=== PATIENT | male | born 1950 | race Caucasian/White ===

== ENCOUNTER 2017-03-19 22:35 | Emergency (ER) | payer OTHER ==
[2017-03-19 23:15] LABS: #Basophils 0.1 thou/uL (0.0-0.2); #Eosinphils 0.4 thou/uL (0.0-0.7); #Lymphocytes 3.2 thou/uL (1.20-3.40); #Monocytes 0.6 thou/uL (0.11-0.59); #Neutrophils 4.7 thou/uL (1.40-6.50); %Basophils 1.4 % (0.0-1.0); %Eosinophils 4.8 % (0.0-10.0); %Monocytes 6.4 % (0.0-10.0); Hematocrit 43.8 % (42.0-52.0); Mean Platelet Volume 6.6 fL (7.4-10.4); Red Blood Cell (RBC) Count 4.34 mill/uL (4.70-6.10)
--- NOTE | 2017-03-19 23:17 | RAD ---
LEFT FOREARM TWO VIEWS: History: Fall. Injury. Pain. Comparison: None. FINDINGS: No fracture. No cortical irregularity. No periosteal reaction. IMPRESSION: No fracture. POS: [facility]
--- NOTE | 2017-03-19 23:18 | RAD ---
TWO VIEWS LEFT HUMERUS: History: Fall. Laceration. FINDINGS: No fracture. No cortical irregularity. No periosteal reaction. IMPRESSION: No fracture. POS: [facility]
[2017-03-19 23:28] LABS: PTT 27.1 SEC (22.9-36.1); Prothrombin Time 13.5 SEC (12.0-14.7)
[2017-03-19 23:34] LABS: ALT (SGPT) Less than 7 U/L (8-55); AST (SGOT) 33 U/L (5-34); Alkaline Phosphatase 73 U/L (40-150); Anion Gap 14 mmol/L (10-20); BUN (Urea Nitrogen) 8 mg/dL (8.4-25.7); Bilirubin, Total 0.3 mg/dL (0.2-1.2); Calc. Creatinine Clearance 0 mL/min (70-130); Calcium 8.5 mg/dL (7.8-10.44); Carbon Dioxide 22 mmol/L (23-31); Chloride 109 mmol/L (98-107); Estimated GFR-MDRD 82; Globulin 2.4 g/dL (2.4-3.5)
--- NOTE | 2017-03-20 00:02 | CT ---
NONCONTRAST HEAD CT: History: Patient fell into coffee table. Post-traumatic pain and abrasion. Comparison: None. Technique: Noncontrast head CT is performed from skull base to skull vertex. FINDINGS: No parenchymal hemorrhage. No extraaxial hematoma. No midline shift. Basilar cisterns are patent. Br ain volume, age appropriate. Cortical joshi white matter differentiation preserved. Ventricles and sulci are patent and symmetric. There is paranasal sinus opacification. Correlate for sinus disease. Adequate aeration of mastoid ai r cells. Calvarium is intact. IMPRESSION: No intracranial post-traumatic sequellae. POS: [facility]
--- NOTE | 2017-03-20 00:05 | CT ---
CERVICAL SPINE CT WITHOUT CONTRAST: History: Patient fell and hit coffee table. Post-traumatic pain. Comparison: None. Technique: Cervical spine CT is performed without contrast. Reformatted images are submitted for int erpretation. FINDINGS: There is appropriate alignment of the lateral masses of C1 and C2 as well as the intraarticular face ts. Odontoid process is intact. There is minimal anterolisthesis of C3 upon C4, likely due to degenerative changes of the posterior elements. Vertebral body heights appear to be maintained. No fracture. Moderate degenerative disc di sease at C5-6 with loss of disc space height and osteophyte formation. There are varying degrees of central canal stenosis and foraminal narrowing due to degenerative change. Evaluation is limited by technique. Visualized soft tissue neck structures, upper mediastinum and lung apices are unremarkable. There is no prevertebral soft tissue swelling. No epidural hematoma. IMPRESSION: No fracture. POS: [facility]
== END 2017-03-20 01:27 | disposition home or self-care (01) ==
LOC: ERS 22:35
DX: S51.812A Laceration without foreign body of left forearm, initial encounter (principal); I25.10 Atherosclerotic heart disease of native coronary artery without angina pectoris; J45.909 Unspecified asthma, uncomplicated; J44.9 Chronic obstructive pulmonary disease, unspecified; F31.9 Bipolar disorder, unspecified; I10 Essential (primary) hypertension; W17.89XA Other fall from one level to another, initial encounter
CPT/HCPCS: 36415; 70450; 72125; 80053; 85025; 85610; 85730

== ENCOUNTER 2017-03-24 23:50 | Emergency (ER) | payer OTHER ==
[2017-03-25] MEDS ORDERED: Bacitracin Zinc 1 Packet ONE (01:56)
[2017-03-25] MEDS ORDERED: Adacel (T-DAP) 0.5 ML VIAL ONE (02:22)
[2017-03-25] MEDS ORDERED: Cephalexin 250 MG CAP ONE (02:43)
[2017-03-25] MEDS ORDERED: Sulfameth/Trimethoprim DS 800-160mg TAB ONE (02:43)
== END 2017-03-25 03:44 | disposition home or self-care (01) ==
LOC: ERS 23:50
DX: L03.114 Cellulitis of left upper limb (principal); I25.10 Atherosclerotic heart disease of native coronary artery without angina pectoris; I10 Essential (primary) hypertension; J45.909 Unspecified asthma, uncomplicated; J44.9 Chronic obstructive pulmonary disease, unspecified; F31.9 Bipolar disorder, unspecified; Z87.891 Personal history of nicotine dependence; Z79.899 Other long term (current) drug therapy
CPT/HCPCS: 87070; 87205; 90471; 90715

== ENCOUNTER 2017-03-27 02:18 | Emergency (ER) | payer OTHER ==
[2017-03-27 03:34] LABS: #Basophils 0.1 thou/uL (0.0-0.2); #Eosinphils 0.6 thou/uL (0.0-0.7); #Lymphocytes 1.4 thou/uL (1.20-3.40); #Monocytes 0.7 thou/uL (0.11-0.59); #Neutrophils 3.2 thou/uL (1.40-6.50); %Basophils 1.1 % (0.0-1.0); %Eosinophils 9.3 % (0.0-10.0); %Lymphocytes 24.2 % (21.0-51.0); %Monocytes 12.3 % (0.0-10.0); Hematocrit 45.7 % (42.0-52.0); Mean Platelet Volume 7.7 fL (7.4-10.4); Red Blood Cell (RBC) Count 4.45 mill/uL (4.70-6.10); White Blood Cell (WBC) Count 5.9 thou/uL (4.8-10.8)
[2017-03-27] MEDS ORDERED: Lorazepam 2 MG/ML VIAL ONE (04:11)
[2017-03-27] MEDS ORDERED: Multivitamins, Adult 10 ML, Thiamine HCl 100 MG, Folic Acid 1 MG in Dextrose 5 %-0.45 %... IV SCH ×4 (04:30)
[2017-03-27 05:42] LABS: Acetaminophen Less than 6.0 mcg/mL (10.0-30.0); CK (CPK) 86 U/L (30-200); Salicylate Less than 8.0 mg/dL (15.0-30.0)
[2017-03-27 05:46] LABS: Chloride 107 mmol/L (98-107)
[2017-03-27 05:47] LABS: Calcium 8.7 mg/dL (7.8-10.44)
[2017-03-27 05:48] LABS: Globulin 2.5 g/dL (2.4-3.5); Protein, Total 6.2 g/dL (5.8-8.1)
[2017-03-27 05:49] LABS: Anion Gap 13 mmol/L (10-20); Bilirubin, Total 0.3 mg/dL (0.2-1.2); Carbon Dioxide 23 mmol/L (23-31)
[2017-03-27 05:50] LABS: Alkaline Phosphatase 106 U/L (40-150)
[2017-03-27 05:51] LABS: Calc. Creatinine Clearance 0 mL/min (70-130); Estimated GFR-MDRD 76
[2017-03-27 05:52] LABS: BUN (Urea Nitrogen) 6 mg/dL (8.4-25.7)
[2017-03-27 05:53] LABS: ALT (SGPT) 25 U/L (8-55); AST (SGOT) 30 U/L (5-34)
[2017-03-27 08:08] LABS: Bilirubin Negative (Negative); Blood, Urine Negative (Negative); Glucose, Urine (Dipstick) Negative (Negative); Ketone, Urine Negative (Negative); Nitrite Negative (Negative); Protein, Urine (Dipstick) Negative (Neg-Trace); Urobilinogen 0.2 mg/dL (0.2-1.0)
[2017-03-27 08:22] LABS: Amphetamine Not Detected (NotDetected); Methadone Not Detected (NotDetected); Methamphetamine Not Detected (NotDetected)
[2017-03-27] MEDS ORDERED: Lorazepam 1 MG TAB ONE (09:43)
== END 2017-03-27 14:36 | disposition home or self-care (01) ==
LOC: ERS 02:18
DX: F32.9 Major depressive disorder, single episode, unspecified (principal); F10.20 Alcohol dependence, uncomplicated; I10 Essential (primary) hypertension; J44.9 Chronic obstructive pulmonary disease, unspecified; I25.10 Atherosclerotic heart disease of native coronary artery without angina pectoris; Z87.891 Personal history of nicotine dependence
CPT/HCPCS: 36415; 80053; 80178; 80306; 80307; 81003; 82550; 84443; 85025; 93005; 96361; 96365; 96366; 96375; J2060; J3411; J7042

== ENCOUNTER 2017-03-31 01:35 | Inpatient (IN) | payer OTHER ==
[2017-03-31] MEDS ORDERED: Multivitamins, Adult 10 ML, Thiamine HCl 100 MG, Folic Acid 1 MG in Dextrose 5 %-0.45 %... IV SCH ×4 (03:00)
[2017-03-31 04:38] LABS: #Basophils 0.1 thou/uL (0.0-0.2); #Eosinphils 0.3 thou/uL (0.0-0.7); #Lymphocytes 1.6 thou/uL (1.20-3.40); #Monocytes 0.5 thou/uL (0.11-0.59); #Neutrophils 2.4 thou/uL (1.40-6.50); %Basophils 1.8 % (0.0-1.0); %Lymphocytes 33.3 % (21.0-51.0); %Monocytes 9.7 % (0.0-10.0); Hematocrit 40.6 % (42.0-52.0); Mean Platelet Volume 6.5 fL (7.4-10.4); White Blood Cell (WBC) Count 4.8 thou/uL (4.8-10.8)
[2017-03-31 04:44] LABS: Prothrombin Time 12.9 SEC (12.0-14.7)
[2017-03-31 04:58] LABS: ALT (SGPT) 27 U/L (8-55); AST (SGOT) 39 U/L (5-34); Alkaline Phosphatase 104 U/L (40-150); Anion Gap 14 mmol/L (10-20); BUN (Urea Nitrogen) 7 mg/dL (8.4-25.7); Bilirubin, Total 0.3 mg/dL (0.2-1.2); CK (CPK) 137 U/L (30-200); Calc. Creatinine Clearance 0 mL/min (70-130); Calcium 8.1 mg/dL (7.8-10.44); Carbon Dioxide 21 mmol/L (23-31); Chloride 106 mmol/L (98-107); Estimated GFR-MDRD 69; Globulin 2.3 g/dL (2.4-3.5); Lipase 23 U/L (8-78); Protein, Total 5.8 g/dL (5.8-8.1)
[2017-03-31] MEDS ORDERED: Lorazepam 2 MG/ML VIAL ONE (05:00)
[2017-03-31] MEDS ORDERED: Lorazepam 2 MG/ML VIAL SLOW IVP PRN (06:03)
[2017-03-31] MEDS ORDERED: Ondansetron ODT 4 MG TAB SL PRN (06:04)
[2017-03-31] MEDS ORDERED: Sodium Chloride 0.9% 1,000 ML IV SCH (06:04)
[2017-03-31] MEDS ORDERED: Ondansetron HCl/PF 4 MG/2 ML Vial IVP PRN ×2 (06:04→07:09)
[2017-03-31] MEDS ORDERED: Acetaminophen 325 MG TAB PO PRN ×2 (06:04→07:09)
[2017-03-31 06:13] VITALS: BMI 23.7
[2017-03-31] MEDS ORDERED: Eucerin (Mineral Oil/Petrolatum,White) 30 gm Jar TOP PRN (07:09)
[2017-03-31] MEDS ORDERED: Loperamide HCl 2 MG CAP PO PRN (07:09)
[2017-03-31] MEDS ORDERED: Senokot 8.6 MG TAB PO PRN (07:09)
[2017-03-31] MEDS ORDERED: HYDROcodone/Acetaminophen 5/325 mg Tablet PO PRN (07:09)
[2017-03-31] MEDS ORDERED: Chloraseptic Spray 180 ml Bottle PO PRN (07:09)
[2017-03-31] MEDS ORDERED: hydrALAZINE 20 MG/ML VIAL SLOW IVP PRN (07:09)
[2017-03-31] MEDS ORDERED: Artificial Tears 18 DROP/0.9 ML EA EYE PRN (07:09)
[2017-03-31] MEDS ORDERED: Milk Of Magnesia 30 ML UDCUP PO PRN (07:09)
[2017-03-31] MEDS ORDERED: Mag-Al 1200 mg/1200 mg/30 ML UDCUP PO PRN (07:09)
[2017-03-31] MEDS ORDERED: Loratadine 10 MG TAB PO PRN (07:09)
[2017-03-31] MEDS ORDERED: Diabetic Tussin 200 MG/10 ML UDCUP PO PRN (07:09)
[2017-03-31] MEDS ORDERED: Sodium Chloride 0.65% Nasal 44 ML BOT EA NARE PRN (07:09)
[2017-03-31] MEDS ORDERED: Ondansetron ODT 4 MG TAB PO PRN (07:09)
[2017-03-31] MEDS ORDERED: Multivitamins, Adult 10 ML, Folic Acid 1 MG, Thiamine HCl 100 MG in Dextrose 5 %-0.45 %... IV SCH ×4 (07:15)
[2017-03-31] MEDS: Famotidine 20 MG TAB PO SCH ×2 (09:17→20:28)
[2017-03-31] MEDS: Enoxaparin Sodium 40 MG/0.4 ML SYRINGE SC SCH (09:18)
[2017-03-31] MEDS: Lorazepam 2 MG/ML VIAL SLOW IVP PRN ×4 (09:22→23:19)
--- NOTE | 2017-03-31 14:25 | HP ---
PRIMARY CARE PHYSICIAN: Evert Bray M.D. REASON FOR ADMISSION: Acute alcohol intoxication and subsequent withdrawal. HISTORY OF PRESENT ILLNESS: A 66-year-old male who has underlying history of alcohol abuse, coronary artery disease, and Parkinson's disease who came to emergency room for alcohol withdrawal syndrome. Patient lives alone at home and he was drinking alcohol to relieve his anxiety. His last drink was yesterday evening and he ran out alcohol. After that he was feeling jittery and anxious. He was sic k, shaky and he was feeling delirium tremens symptoms and that is why he called paramedics and parame dics brought him to emergency room. Patient does have a history of alcohol abuse and he was also adm itted in our hospital with suicidal ideation during previous admission in September and required psych faci lity transfer from hospitalization This patient denies any chest pain, palpitation, shortness of sharon th. He denies any nausea, vomiting, and headache at this point. He is only asking for lorazepam for anxiety. When I saw this patient, at that time he appeared stable. At that point, we decided to mo ve him to medical floor. Patient does have poor insight about his health and he is not able to provide any good history. ALLERGIES: No known drug allergies. CURRENT HOME MEDICATIONS: ProAir HFA 2 puffs q.4 hourly p.r.n., Lipitor 40 mg p.o. at bedtime, Plavi x 75 mg p.o. daily, Advair 1 inhalation b.i.d., lithium 600 mg p.o. at bedtime, Latuda 80 mg p.o. at bedtime, metoprolol 25 mg p.o. b.i.d. REVIEW OF SYSTEMS: The following complete review of systems was negative, unless otherwise mentioned in the HPI or below: Constitutional: Weight loss or gain, ability to conduct usual activities. Skin: Rash, itching. Eyes: Double vision, pain. ENT/Mouth: Nose bleeding, neck stiffness, pain, tenderness. Cardiovascular: Palpitations, dyspnea on exertion, orthopnea. Respiratory: Shortness of breath, wheezing, cough, hemoptysis, fever or night sweats. Gastrointestinal: Poor appetite, abdominal pain, heartburn, nausea, vomiting, constipation, or diarr hea. Genitourinary: Urgency, frequency, dysuria, nocturia. Musculoskeletal: Pain, swelling. Neurologic/Psychiatric: Anxiety, depression. Allergy/Immunologic: Skin rash, bleeding tendency. Please see my HPI for pertinent positive and negative. All other review of systems reviewed and nega tive except as mentioned in the HPI though review of systems is little bit limited because of his cog nitive status. PAST MEDICAL HISTORY: History of prostate cancer, coronary artery disease requiring stent placement, hypertension, asthma/COPD, and alcohol abuse. PAST SURGICAL HISTORY: Prostatectomy, bilateral knee surgery, right shoulder surgery, cardiac cathet erization with stent placement, hernia repair, history of colectomy. PAST PSYCHIATRIC HISTORY: Anxiety, depression, and bipolar disorder. SOCIAL HISTORY: Patient drinks alcohol almost every day more than 5 years, vodka daily basis. He qu it smoking 1 year ago. Otherwise he used to be a heavy smoker for 30 years. He denies any other ill icit drug abuse. He lives alone by himself. FAMILY HISTORY: No strong family history of premature coronary artery disease, stroke or cancer. EMERGENCY ROOM COURSE: Patient is given Ativan 2 mg and banana bag. PHYSICAL EXAMINATION: VITAL SIGNS: On arrival, blood pressure 135/91, pulse 111, respiratory rate 18, temperature 98.5, sa turation 93% on room air, weight 80.7 kilograms. GENERAL: Patient is currently anxious, jittery, restless, no obvious acute distress. HEAD: Normocephalic, atraumatic. EYES: Pupils round and reactive to light. Extraocular muscles intact. ENT: Oropharynx within normal limits. Dry appearing mucous membranes. No oral lesions. No pharyng eal erythema, no exudate. NECK: Supple, no JVD, no thyromegaly, no carotid bruits. LUNGS: Clear to auscultation without any rhonchi or rales. CARDIAC: S1 and S2 regular, tachycardia, no murmur, no gallop, no rub. ABDOMEN: Soft, bowel sounds present. No epigastric tenderness, bowel sounds present. No organomega ly, no mass, no suprapubic tenderness. BACK: Examination unremarkable, no CVA tenderness. EXTREMITIES: Upper extremity passive movements of all joints are normal. Lower extremities: No china ma. Good peripheral pulsation. SKIN: No skin rash. Patient does have healing left forearm cellulitis type of changes, skin changes and left forearm. PSYCHIATRIC: Anxious affect. NEUROLOGIC: Nonfocal examination. He does have tremors in upper extremity and he is apprehensive, o therwise no gross focal neurological deficit noted. No cerebellar sign though difficult to perform b ecause of tremor. IMAGING AND SIGNIFICANT LABORATORY DATA: 1. clinical research monitor earlier today was sinus rhythm without any arrhythmia. 2. CBC: WBC 4.8, hemoglobin 13.3, platelet 248, and MCV 104. INR 1.0. 3. BMP: Sodium 137, potassium 4.3, chloride 106, carbon dioxide 21, anion gap 14, BUN 7, creatinine 1.08, glucose 195, calcium 8.1. 4. LFTs: AST 39, ALT 27, alkaline phosphatase 104, albumin 3.5, lipase 23. ASSESSMENT AND PLAN/IMPRESSION: 1. Acute alcohol withdrawal syndrome. This patient has alcohol abuse history; currently, jitterines s, restlessness, and anxiety consistent with alcohol withdrawal syndrome. He will require hospitaliz ation to treat underlying alcohol withdrawal syndrome. We will treat with diazepam 5 mg b.i.d. and A tivan 1 mg IV or p.o. as needed basis. Safety measures will be initiated while in hospital. We will also continue with banana bag at 50 mL per hour. 2. Chronic obstructive pulmonary disease/asthma. Patient will need DuoNeb therapy q.6 hourly schedu led. We will also continue Dulera 2 puffs inhalation b.i.d. 3. Dyslipidemia. We will continue Lipitor 40 mg p.o. at bedtime. 4. Anxiety and depression, bipolar disorder. We will continue lithium carbonate 600 mg p.o. at bedt davion, Latuda 80 mg p.o. at bedtime. We will check lithium level tomorrow. 5. Coronary artery disease with history of stent. We will continue Plavix 75 mg p.o. daily, metopro lol 25 mg p.o. daily along with statin therapy. 6. Alcohol abuse. Patient will have banana bag and whenever patient is able to take well p.o. intak e, at that time we will resume folic acid, thiamine, and vitamin B12 therapy. 7. Microcytic anemia. We will continue banana bag today and tomorrow we will start folic acid, giana min B12 and thiamine therapy. 8. Hypertension. We will continue metoprolol 25 mg p.o. b.i.d. 9. Deep venous thrombosis prophylaxis, Lovenox 40 mg subcu daily. 10. Gastrointestinal prophylaxis, Pepcid 20 mg p.o. b.i.d. 11. Code status: The patient is FULL CODE. Patient does not have any surrogate decision maker. Disposition plan based on clinical course. We are expecting patient's stay in the hospital more than 2 midnights. Plan of care discussed with the patient in detail.
[2017-03-31] MEDS ORDERED: cefTRIAXone\\ROCEPHIN 1 GM in Sodium Chloride 0.9% 100 ML IVPB SCH (14:45)
[2017-03-31] MEDS: cefTRIAXone\\ROCEPHIN 1 GM, Syringe 0.4 ML in Sterile Water 9.6 ML SLOW IVP SCH (17:42)
[2017-03-31 19:18] LABS: Bilirubin Negative (Negative); Blood, Urine Negative (Negative); Glucose, Urine (Dipstick) Negative (Negative); Ketone, Urine Negative (Negative); Nitrite Negative (Negative); Protein, Urine (Dipstick) Negative (Neg-Trace)
[2017-03-31 19:20] LABS: Bacteria/HPF None Seen HPF (None Seen); Hyaline Casts/LPF 0-3 HYALINE CAST LPF (0-3 Hyaline); RBC/HPF 0-3 HPF (0-3); Squamous Epithelial None Seen HPF (0-3); WBC/HPF None Seen HPF (0-3)
[2017-03-31] MEDS: Atorvastatin Calcium 40 MG TAB PO SCH (20:28)
[2017-03-31] MEDS: Lithium Carbonate 150 MG CAP PO SCH (20:28)
[2017-03-31] MEDS: Diazepam 5 MG TAB PO SCH (20:28)
[2017-03-31] MEDS: Metoprolol Tartrate 25 MG TAB PO SCH (20:30)
[2017-03-31] MEDS ORDERED: LURASIDONE HCL 40 MG PO SCH (21:00)
[2017-03-31] MEDS ORDERED: LITHIUM CARBONATE 600 MG PO SCH (21:00)
[2017-04-01] MEDS: Zolpidem Tartrate 5 MG TAB PO PRN ×2 (01:11→22:10)
[2017-04-01] MEDS ORDERED: PROVENTIL INHALER 6.7 G (200 INHALATIONS) INH PRN (04:41)
[2017-04-01 06:24] LABS: Anion Gap 12 mmol/L (10-20); BUN (Urea Nitrogen) 6 mg/dL (8.4-25.7); Calc. Creatinine Clearance 85 mL/min (70-130); Calcium 8.9 mg/dL (7.8-10.44); Carbon Dioxide 22 mmol/L (23-31); Chloride 105 mmol/L (98-107); Estimated GFR-MDRD 76; Phosphorus 3.4 mg/dL (2.3-4.7)
[2017-04-01 06:40] LABS: #Basophils 0.1 thou/uL (0.0-0.2); #Eosinphils 0.4 thou/uL (0.0-0.7); #Lymphocytes 1.6 thou/uL (1.20-3.40); #Monocytes 0.7 thou/uL (0.11-0.59); #Neutrophils 4.5 thou/uL (1.40-6.50); %Basophils 0.9 % (0.0-1.0); %Eosinophils 5.6 % (0.0-10.0); %Lymphocytes 21.4 % (21.0-51.0); %Monocytes 10.2 % (0.0-10.0); Hematocrit 39.6 % (42.0-52.0); Macrocytosis SLIGHT = 6-15 cells (100X) (0-5/hpf); Mean Platelet Volume 6.6 fL (7.4-10.4); Red Blood Cell (RBC) Count 3.77 mill/uL (4.70-6.10); White Blood Cell (WBC) Count 7.2 thou/uL (4.8-10.8)
[2017-04-01] MEDS: Enoxaparin Sodium 40 MG/0.4 ML SYRINGE SC SCH (08:19)
[2017-04-01] MEDS: Clopidogrel Bisulfate 75 MG TAB PO SCH (08:19)
[2017-04-01] MEDS: Famotidine 20 MG TAB PO SCH ×2 (08:19→20:14)
[2017-04-01] MEDS: Metoprolol Tartrate 25 MG TAB PO SCH ×2 (08:19→20:14)
[2017-04-01] MEDS: Diazepam 5 MG TAB PO SCH ×2 (08:19→20:14)
[2017-04-01] MEDS ORDERED: Multivitamins, Adult 10 ML, Folic Acid 1 MG, Thiamine HCl 100 MG in Dextrose 5 %-0.45 %... IV SCH ×4 (09:00)
[2017-04-01] MEDS: Lorazepam 1 MG TAB PO PRN ×3 (10:14→23:37)
--- NOTE | 2017-04-01 11:59 | PDOC.PN ---
- Subjective Encounter Start Date: 04/01/17 Encounter Start Time: 09:10 -: old records requested/rev Patient seen and examined. No new complaints. No overnight events, feels better , less shakiness - Objective Resuscitation Status: Resuscitation Status FULL:Full Resuscitation MAR Reviewed: Yes Vital Signs & Weight: Vital Signs (12 hours) Temp Pulse Resp BP BP Pulse Ox 04/01/17 11:31 76 12 04/01/17 08:00 98.9 F 92 18 95 04/01/17 07:01 98.9 F 92 18 124/74 91 L 04/01/17 05:40 91 L 04/01/17 04:00 97.9 F 95 20 137/75 137/75 93 L 04/01/17 00:00 98.8 F 91 18 118/69 118/69 94 L Weight Weight 174 lb 14.4 oz I&O: 03/31/17 04/01/17 04/02/17 06:59 06:59 06:59 Intake Total 1000 360 Balance 1000 360 Result Diagrams: 04/01/17 05:50 04/01/17 05:50 Phys Exam - Physical Examination Constitutional: NAD HEENT: PERRLA, moist MMs, sclera anicteric Neck: no JVD, supple Respiratory: no wheezing, no rales, no rhonchi Cardiovascular: RRR, no significant murmur, no rub Gastrointestinal: soft, non-tender, no distention, positive bowel sounds cellulitis left arm Neurological: non-focal, normal sensation, moves all 4 limbs Psychiatric: normal affect, A&O x 3 Skin: no rash, normal turgor Dx/Plan (1) Cellulitis of left arm Code(s): L03.114 - CELLULITIS OF LEFT UPPER LIMB Status: Acute (2) Alcohol withdrawal syndrome Code(s): F10.239 - ALCOHOL DEPENDENCE WITH WITHDRAWAL, UNSPECIFIED Status: Acute (3) Alcohol abuse Code(s): F10.10 - ALCOHOL ABUSE, UNCOMPLICATED Status: Chronic (4) COPD (chronic obstructive pulmonary disease) Status: Chronic (5) Coronary artery disease Code(s): I25.10 - ATHSCL HEART DISEASE OF [place] CORONARY ARTERY W/O ANG PCTRS Status: Chronic (6) Depression Code(s): F32.9 - MAJOR DEPRESSIVE DISORDER, SINGLE EPISODE, UNSPECIFIED Status : Chronic (7) Dyslipidemia Code(s): E78.5 - HYPERLIPIDEMIA, UNSPECIFIED Status: Chronic (8) Hypertension Code(s): I10 - ESSENTIAL (PRIMARY) HYPERTENSION Status: Chronic (9) Macrocytic anemia Code(s): D53.9 - NUTRITIONAL ANEMIA, UNSPECIFIED Status: Chronic (10) Parkinson disease Code(s): G20 - PARKINSON'S DISEASE Status: Chronic - Plan cont current plan of care, continue antibiotics * continue rocephin * continue to treat alcohol withdrawl * start PT * will monitor today * possible discharge tomorrow * medication reviewed as below * symptomatic treatment. Review of Systems - Review of Systems ENT: negative: Ear Pain, Ear Discharge, Nose Pain, Nose Discharge, Nose Congestion, Mouth Pain, Mouth Swelling, Throat Pain, Throat Swelling, Other Respiratory: negative: Cough, Dry, Shortness of Breath, Hemoptysis, SOB with Excertion, Pleuritic Pain, Sputum, Wheezing Cardiovascular: negative: Chest Pain, Palpitations, Orthopnea, Paroxysmal Noc. Dyspnea, Edema, Light Headedness, Other Gastrointestinal: negative: Nausea, Vomiting, Abdominal Pain, Diarrhea, Constipation, Melena, Hematochezia, Other Genitourinary: negative: Dysuria, Frequency, Incontinence, Hematuria, Retention , Other Musculoskeletal: negative: Neck Pain, Shoulder Pain, Arm Pain, Back Pain, Hand Pain, Leg Pain, Foot Pain, Other Skin: negative: Rash, Lesions, Amado, Bruising, Other - Medications/Allergies Allergies/Adverse Reactions: Allergies Allergy/AdvReac Type Severity Reaction Status Date / Time No Known Allergies Allergy Verified 06/16/14 15:08 Medications: Current Medications Acetaminophen (Tylenol) 650 mg PO Q4H PRN PRN Reason: Headache/Fever or Pain Hydrocodone Bitart/Acetaminophen ([place] 5/325) 1 tab PO Q4H PRN PRN Reason: Moderate Pain (4-6) Al Hydroxide/Mg Hydroxide (Maalox) 30 ml PO Q6H PRN PRN Reason: Heartburn or Indigestion Albuterol Sulfate (Proventil Hfa) 2 puff INH Q4H PRN PRN Reason: Dyspnea/Wheezing/SOB Albuterol/Ipratropium (Duoneb) 3 ml NEB [id number] MARIA ANTONIA Last Admin: 04/01/17 11:31 Dose: 3 ml Artificial Tears (Tears Naturale) 0 drop EA EYE PRN PRN PRN Reason: Dry Eyes Atorvastatin Calcium (Lipitor) 40 mg PO HS [facility] Last Admin: 03/31/17 20:28 Dose: 40 mg Clopidogrel Bisulfate (Plavix) 75 mg PO DAILY [facility] Last Admin: 04/01/17 08:19 Dose: 75 mg Diazepam (Valium) 5 mg PO BID [facility] Last Admin: 04/01/17 08:19 Dose: 5 mg Enoxaparin Sodium (Lovenox) 40 mg SC 0900 [facility] Last Admin: 04/01/17 08:19 Dose: 40 mg Famotidine (Pepcid) 20 mg PO BID [facility] Last Admin: 04/01/17 08:19 Dose: 20 mg Guaifenesin (Robitussin Sf) 200 mg PO Q4H PRN PRN Reason: Cough Hydralazine HCl (Apresoline) 10 mg SLOW IVP Q4H PRN PRN Reason: Systolic BP > 180 Multivitamins 10 ml/ Folic Acid 1 mg/ Thiamine HCl 100 mg / Dextrose/Sodium Chloride 1,011.2 mls @ 50 mls/hr IV Q24HR [facility] Last Admin: 04/01/17 11:41 Dose: 1,011.2 mls Ceftriaxone Sodium 1 gm/ (Syringe 0.4 ml/ Sterile Water) 10 mls @ 120 mls/hr SLOW IVP 1600 [facility] Last Admin: 03/31/17 17:42 Dose: 10 mls [place] Carbonate ([place] Carbonate) 600 mg PO [facility] Last Admin: 03/31/17 20:28 Dose: 600 mg Loperamide HCl (Imodium) 2 mg PO PRN PRN PRN Reason: Diarrhea/Loose Stools Loratadine (Claritin) 10 mg PO DAILYPRN PRN PRN Reason: Sinus Symptoms Lorazepam (Ativan) 1 mg SLOW IVP Q4H PRN PRN Reason: Anxiety/Agitation Last Admin: 03/31/17 23:19 Dose: 1 mg Lorazepam (Ativan) 1 mg PO Q4H PRN PRN Reason: Anxiety/Agitation Last Admin: 04/01/17 10:14 Dose: 1 mg Magnesium Hydroxide (Milk Of Magnesium) 30 ml PO DAILYPRN PRN PRN Reason: Constipation Metoprolol Tartrate (Lopressor) 25 mg PO BID [facility] Last Admin: 04/01/17 08:19 Dose: 25 mg Mineral Oil/White Petrolatum (Eucerin Cream) 0 gm TOP BIDPRN PRN PRN Reason: Dry Skin Ondansetron HCl (Zofran Odt) 4 mg PO Q6H PRN PRN Reason: Nausea/Vomiting Ondansetron HCl (Zofran) 4 mg IVP Q6H PRN PRN Reason: Nausea/Vomiting (Lurasidone Hcl [ (Latuda] 40 Mg)) 0 each PO HS MARIA ANTONIA Phenol (Chloraseptic [place] 180 Ml Bot) 0 ml PO PRN PRN PRN Reason: Sore Throat Senna (Senokot) 2 tab PO HSPRN PRN PRN Reason: Constipation Sodium Chloride ([place] Nasal [place] 0.65%) 0 ml EA NARE QIDPRN PRN PRN Reason: Nasal Congestion Sodium Chloride (Flush - Normal Saline) 10 ml IVF Q12HR MARIA ANTONIA Last Admin: 04/01/17 11:41 Dose: 10 ml Sodium Chloride (Flush - Normal Saline) 10 ml IVF PRN PRN PRN Reason: Saline Flush Zolpidem Tartrate (Ambien) 5 mg PO HSPRN PRN PRN Reason: Insomnia Last Admin: 04/01/17 01:11 Dose: 5 mg
[2017-04-01] MEDS: cefTRIAXone\\ROCEPHIN 1 GM, Syringe 0.4 ML in Sterile Water 9.6 ML SLOW IVP SCH (16:51)
[2017-04-01] MEDS: Lorazepam 2 MG/ML VIAL SLOW IVP PRN (19:29)
[2017-04-01] MEDS: Atorvastatin Calcium 40 MG TAB PO SCH (20:14)
[2017-04-01] MEDS: Lithium Carbonate 150 MG CAP PO SCH (20:14)
[2017-04-02] MEDS: Lorazepam 1 MG TAB PO PRN (05:37)
[2017-04-02] MEDS: Enoxaparin Sodium 40 MG/0.4 ML SYRINGE SC SCH (07:56)
[2017-04-02] MEDS: Famotidine 20 MG TAB PO SCH (07:57)
[2017-04-02] MEDS: Clopidogrel Bisulfate 75 MG TAB PO SCH (07:57)
[2017-04-02] MEDS: Diazepam 5 MG TAB PO SCH (07:57)
[2017-04-02] MEDS: Metoprolol Tartrate 25 MG TAB PO SCH (07:58)
[2017-04-02] MEDS ORDERED: Multivitamin W/ Minerals 1 TAB PO SCH (09:00)
[2017-04-02] MEDS ORDERED: Cyanocobalamin (Vitamin B-12) 1,000 MCG TAB PO SCH (09:00)
[2017-04-02] MEDS ORDERED: Folic Acid 1 MG TAB PO SCH (09:00)
[2017-04-02 09:03] VITALS: BP 122/82; TEMP 98.1
--- NOTE | 2017-04-02 11:41 | DIS ---
DATE OF ADMISSION: 03/31/2017 DATE OF DISCHARGE: 04/02/2017 PRIMARY CARE PHYSICIAN: Dr. Evert Bray. DISCHARGE DISPOSITION: Home. PRIMARY DISCHARGE DIAGNOSES: 1. Acute alcohol withdrawal syndrome, corrected. 2. Cellulitis, left arm, on antibiotic therapy. SECONDARY DISCHARGE DIAGNOSES: Alcohol abuse, chronic obstructive pulmonary disease/asthma, coronary artery disease, anxiety and depression, Parkinson disease, hypertension, dyslipidemia, macrocytic an emia. PRIMARY PROCEDURE/OPERATION: None. RADIOLOGICAL INVESTIGATION: None. SIGNIFICANT LABORATORIES: WBC 7.2, hemoglobin 12.7, platelet 242, MCV 105. INR 1.0. Sodium 135, po tassium 3.9, BUN 6, creatinine 0.99, calcium 8.9, phosphorus 3.4, alkaline magnesium 2.0, AST 39, ALT 27, alkaline phosphatase 104, albumin 3.5, lipase 23. Urinalysis normal. Anthony level was 0.537. DISCHARGE MEDICATIONS: Ventolin HFA 2 puffs q.4 hourly p.r.n., Lipitor 40 mg p.o. at bedtime, patien t will continue Keflex 500 mg p.o. q.i.d. to finish complete course as directed, Bactrim-DS 1 tablet twice daily to finish as directed, vitamin B12 of 1000 mcg p.o. daily, Pepcid 20 mg p.o. b.i.d., Plav ix 75 mg p.o. daily, Advair Diskus 2 one inhalation b.i.d., folic acid 1 mg p.o. daily, lithium carbo eladia 600 mg p.o. at bedtime, Latuda 80 mg p.o. at bedtime, metoprolol 25 mg p.o. b.i.d., Theragran 1 tablet p.o. daily, thiamine 100 mg p.o. daily. CONTRAINDICATIONS: None. CODE STATUS: FULL CODE. INPATIENT CONSULTANTS: None. ALLERGIES: No known drug allergy. DISCHARGE PLAN: Post hospital, the patient will follow up with primary care physician in 1 week. HOSPITAL COURSE: The patient is a 66-year-old male who has above-mentioned medical problem and he tavarez s chronic alcohol abuse. He was drinking alcohol and then he ran out of his alcohol and then he was experiencing withdrawal syndrome and that is why he came to the emergency room. In the emergency carlos m, patient was having acute alcohol withdrawal syndrome. He was initially admitted to telemetry [facility]. I admitted this patient. Please see my HPI for further details. The patient was medically stabl e and that is why we transferred him to medical floor. While in hospital, we treated him with banana bag as well as alcohol withdrawal syndrome with benzodiazepines. Within 24-48 hours, the patient's condition significantly improved and today, the patient wanted to go home. He is not willing to stay in hospital for any more therapy. He was feeling that he is up to his normal and he reassured me th at he will not start drinking again. While in hospital, we continued all his home medication. On discharge, we continued similar home med ication as well as we prescribed folic acid, vitamin B12, thiamine, and Theragran therapy. While in hospital, we continued with Rocephin therapy and on discharge, he will continue his Keflex and Bactri m-DS which he was recently prescribed for cellulitis. At this point, the patient has basic parkinsonian tremor, but his alcohol withdrawal syndrome complet deanna resolved. Patient is seen and examined at bedside today. REVIEW OF SYSTEMS: Reviewed with him and negative. PHYSICAL EXAMINATION: VITAL SIGNS: Currently, temperature 98.1, pulse 88, respiratory rate 22, saturation 92% on room air, blood pressure 122/82, weight 174 pounds. GENERAL: The patient is currently alert, awake, no acute distress. HEAD: Normocephalic, atraumatic. EYES: Pupils round, reactive to light. Extraocular muscles intact. ENT: Oropharynx within normal limits. Moist mucous membranes. No oral lesions. No pharyngeal eryt warren, no exudate. NECK: Supple. LUNGS: Clear to auscultation without any rhonchi or rales. CARDIAC: S1, S2 regular without any murmur. ABDOMEN: Soft and benign. EXTREMITIES: No edema. NEUROLOGIC: Nonfocal examination other than parkinsonian tremor. All new medication prescriptions sent to his pharmacy. Total time spent on discharge day 31 minutes.
== END 2017-04-02 11:30 | disposition home or self-care (01) | DRG 897 ==
LOC: ERS 01:35 → 2NO 05:10 → T4-B 11:52
PROVIDERS: ADMIT Internal Medicine; ATTEND Internal Medicine
DX: F10.239 Alcohol dependence with withdrawal, unspecified (principal); G20 Parkinson's disease; L03.114 Cellulitis of left upper limb; I10 Essential (primary) hypertension; J44.9 Chronic obstructive pulmonary disease, unspecified; F10.229 Alcohol dependence with intoxication, unspecified; F31.9 Bipolar disorder, unspecified; Y90.9 Presence of alcohol in blood, level not specified; E78.5 Hyperlipidemia, unspecified; F41.9 Anxiety disorder, unspecified; I25.10 Atherosclerotic heart disease of native coronary artery without angina pectoris; Z95.5 Presence of coronary angioplasty implant and graft; Z87.891 Personal history of nicotine dependence; D53.9 Nutritional anemia, unspecified
CPT/HCPCS: 36415; 80048; 80053; 80178; 81001; 82550; 83690; 83735; 84100; 85025; 85610; 85730; 94640; 96365; 96366; 96375; A4216; J0696; J1650; J2060; J3411; J7042; J7620

== ENCOUNTER 2017-04-04 22:37 | Emergency (ER) | payer OTHER ==
[2017-04-04 23:24] LABS: #Basophils 0.1 thou/uL (0.0-0.2); #Eosinphils 0.4 thou/uL (0.0-0.7); #Lymphocytes 1.8 thou/uL (1.20-3.40); #Monocytes 0.6 thou/uL (0.11-0.59); #Neutrophils 3.6 thou/uL (1.40-6.50); %Basophils 1.2 % (0.0-1.0); %Eosinophils 6.7 % (0.0-10.0); %Lymphocytes 27.2 % (21.0-51.0); %Monocytes 9.3 % (0.0-10.0); Hematocrit 43.9 % (42.0-52.0); Mean Platelet Volume 6.6 fL (7.4-10.4); Red Blood Cell (RBC) Count 4.17 mill/uL (4.70-6.10); White Blood Cell (WBC) Count 6.5 thou/uL (4.8-10.8)
[2017-04-05 00:11] LABS: ALT (SGPT) 58 U/L (8-55); AST (SGOT) 84 U/L (5-34); Alkaline Phosphatase 113 U/L (40-150); Anion Gap 18 mmol/L (10-20); BUN (Urea Nitrogen) 6 mg/dL (8.4-25.7); Bilirubin, Total 0.5 mg/dL (0.2-1.2); Calc. Creatinine Clearance 0 mL/min (70-130); Carbon Dioxide 19 mmol/L (23-31); Chloride 108 mmol/L (98-107); Estimated GFR-MDRD 76; Globulin 2.9 g/dL (2.4-3.5); Protein, Total 6.9 g/dL (5.8-8.1)
[2017-04-05 00:17] LABS: Acetaminophen Less than 6.0 mcg/mL (10.0-30.0); Salicylate Less than 8.0 mg/dL (15.0-30.0)
[2017-04-05] MEDS ORDERED: chlordiazePOXIDE HCl 25 MG CAP ONE (00:23)
[2017-04-05 02:37] LABS: Bilirubin Negative (Negative); Blood, Urine Negative (Negative); Glucose, Urine (Dipstick) Negative (Negative); Ketone, Urine Negative (Negative); Nitrite Negative (Negative); Protein, Urine (Dipstick) Negative (Neg-Trace); Urobilinogen 0.2 mg/dL (0.2-1.0)
[2017-04-05 02:54] LABS: Amphetamine Not Detected (NotDetected); Methadone Not Detected (NotDetected); Methamphetamine Not Detected (NotDetected)
[2017-04-05] MEDS ORDERED: Lorazepam 1 MG TAB ONE (07:49)
== END 2017-04-05 09:19 | disposition home or self-care (01) ==
LOC: ERS 22:37
DX: F10.10 Alcohol abuse, uncomplicated (principal); F31.9 Bipolar disorder, unspecified; I25.10 Atherosclerotic heart disease of native coronary artery without angina pectoris; I10 Essential (primary) hypertension; J44.9 Chronic obstructive pulmonary disease, unspecified; Y90.3 Blood alcohol level of 60-79 mg/100 ml; Z79.899 Other long term (current) drug therapy
CPT/HCPCS: 36415; 80053; 80178; 80306; 80307; 81003; 82550; 84443; 85025; 99284

== ENCOUNTER 2017-04-09 03:18 | Emergency (ER) | payer MEDICARE, MEDICAID ==
[2017-04-09 03:49] LABS: #Basophils 0.1 thou/uL (0.0-0.2); #Eosinphils 0.7 thou/uL (0.0-0.7); #Lymphocytes 2.2 thou/uL (1.20-3.40); #Monocytes 0.5 thou/uL (0.11-0.59); #Neutrophils 2.9 thou/uL (1.40-6.50); %Basophils 1.7 % (0.0-1.0); %Eosinophils 11.4 % (0.0-10.0); %Lymphocytes 34.3 % (21.0-51.0); %Monocytes 7.2 % (0.0-10.0); Hematocrit 45.5 % (42.0-52.0); Mean Platelet Volume 6.7 fL (7.4-10.4); Red Blood Cell (RBC) Count 4.25 mill/uL (4.70-6.10); White Blood Cell (WBC) Count 6.5 thou/uL (4.8-10.8)
[2017-04-09 04:02] LABS: Bilirubin Negative (Negative); Blood, Urine Negative (Negative); Glucose, Urine (Dipstick) Negative (Negative); Ketone, Urine Negative (Negative); Nitrite Negative (Negative); Protein, Urine (Dipstick) Negative (Neg-Trace); Urobilinogen 0.2 mg/dL (0.2-1.0)
[2017-04-09 04:11] LABS: Amphetamine Not Detected (NotDetected); Methadone Not Detected (NotDetected); Methamphetamine Not Detected (NotDetected)
[2017-04-09 04:24] LABS: ALT (SGPT) 49 U/L (8-55); AST (SGOT) 62 U/L (5-34); Acetaminophen Less than 6.0 mcg/mL (10.0-30.0); Alkaline Phosphatase 99 U/L (40-150); Anion Gap 18 mmol/L (10-20); BUN (Urea Nitrogen) 8 mg/dL (8.4-25.7); Bilirubin, Total 0.4 mg/dL (0.2-1.2); Calc. Creatinine Clearance 0 mL/min (70-130); Calcium 9.2 mg/dL (7.8-10.44); Carbon Dioxide 20 mmol/L (23-31); Chloride 107 mmol/L (98-107); Estimated GFR-MDRD 88; Globulin 3.2 g/dL (2.4-3.5); Protein, Total 7.4 g/dL (5.8-8.1); Salicylate Less than 8.0 mg/dL (15.0-30.0)
[2017-04-09] MEDS ORDERED: Topiramate 25 MG TAB PO SCH (09:00)
[2017-04-09] MEDS ORDERED: Amantadine HCl 100 mg Capsule PO SCH (09:00)
[2017-04-09] MEDS ORDERED: Clopidogrel Bisulfate 75 MG TAB PO SCH (09:00)
[2017-04-09] MEDS ORDERED: Cephalexin 250 MG CAP PO SCH (09:00)
[2017-04-09] MEDS ORDERED: Metoprolol Tartrate 25 MG TAB PO SCH (09:00)
[2017-04-09] MEDS ORDERED: Lorazepam 2 MG/ML VIAL ONE (12:16)
[2017-04-09] MEDS ORDERED: Albuterol Sulfate 2.5 mg/3 ml Neb ONE (16:57)
[2017-04-09] MEDS ORDERED: Albuterol Sulfate 2.5 mg/0.5 ml Neb ONE (16:57)
[2017-04-09] MEDS ORDERED: Atorvastatin Calcium 40 MG TAB PO SCH (21:00)
[2017-04-09] MEDS ORDERED: hydrOXYzine Pamoate 25 mg Capsule PO SCH (21:00)
[2017-04-09] MEDS ORDERED: Lurasidone HCl 40 MG TABLET PO SCH (21:00)
== END 2017-04-09 20:27 ==
LOC: ERS 03:18
DX: R45.851 Suicidal ideations (principal); F10.10 Alcohol abuse, uncomplicated; I25.2 Old myocardial infarction; I25.10 Atherosclerotic heart disease of native coronary artery without angina pectoris; I10 Essential (primary) hypertension; J44.9 Chronic obstructive pulmonary disease, unspecified; F31.9 Bipolar disorder, unspecified; Z85.46 Personal history of malignant neoplasm of prostate; Z87.891 Personal history of nicotine dependence; Z79.52 Long term (current) use of systemic steroids; Z79.899 Other long term (current) drug therapy; Y90.7 Blood alcohol level of 200-239 mg/100 ml
CPT/HCPCS: 36415; 80053; 80306; 80307; 81003; 82550; 85025; 94640; 96372; J2060; J7611; J7620; Q0177

== ENCOUNTER 2017-05-17 22:51 | Emergency (ER) | payer MEDICARE, MEDICAID | END 2017-05-18 01:10 | disposition home or self-care (01) | LOC: ERS 22:51 | DX: F10.129 Alcohol abuse with intoxication, unspecified (principal); I25.2 Old myocardial infarction; I10 Essential (primary) hypertension; J44.9 Chronic obstructive pulmonary disease, unspecified; F31.9 Bipolar disorder, unspecified; Z79.899 Other long term (current) drug therapy | CPT/HCPCS: 80307; 96360 ==

== ENCOUNTER 2017-05-18 23:38 | Emergency (ER) | payer MEDICARE, OTHER | END 2017-05-19 00:30 | disposition home or self-care (01) | LOC: ERS 23:38 | DX: F10.129 Alcohol abuse with intoxication, unspecified (principal); I25.10 Atherosclerotic heart disease of native coronary artery without angina pectoris; I10 Essential (primary) hypertension; G20 Parkinson's disease; J44.9 Chronic obstructive pulmonary disease, unspecified; J45.909 Unspecified asthma, uncomplicated; Z87.891 Personal history of nicotine dependence; Z79.899 Other long term (current) drug therapy; Y90.8 Blood alcohol level of 240 mg/100 ml or more | CPT/HCPCS: 99283 ==

== ENCOUNTER 2017-05-20 12:38 | Emergency (ER) | payer MEDICARE, MEDICAID ==
[2017-05-20 13:26] LABS: #Basophils 0.1 thou/uL (0.0-0.2); #Eosinphils 0.5 thou/uL (0.0-0.7); #Lymphocytes 1.7 thou/uL (1.20-3.40); #Monocytes 0.5 thou/uL (0.11-0.59); #Neutrophils 3.3 thou/uL (1.40-6.50); %Basophils 1.8 % (0.0-1.0); %Eosinophils 7.7 % (0.0-10.0); %Lymphocytes 27.7 % (21.0-51.0); %Monocytes 8.3 % (0.0-10.0); %Neutrophils 54.5 % (42.0-75.0); Hemoglobin 14.6 g/dL (14.0-18.0); Mean Corpuscular HGB CONC 32.4 g/dL (32.0-36.0); Mean Platelet Volume 6.6 fL (7.4-10.4); Platelet Count 222 thou/uL (130-400); RBC Distribution Width 13.1 % (11.5-14.5); Red Blood Cell (RBC) Count 4.19 mill/uL (4.70-6.10); White Blood Cell (WBC) Count 6.1 thou/uL (4.8-10.8)
[2017-05-20 13:41] LABS: Bilirubin Negative (Negative); Blood, Urine Negative (Negative); Clarity CLEAR (Clear); Glucose, Urine (Dipstick) Negative (Negative); Leukocyte Negative (Negative); Nitrite Negative (Negative); Protein, Urine (Dipstick) Negative (Neg-Trace); Specific Gravity, Urine 1.011 (1.002-1.036); Urobilinogen 0.2 mg/dL (0.2-1.0)
[2017-05-20 13:50] LABS: Acetaminophen Less than 6.0 mcg/mL (10.0-30.0); Alcohol 221 mg/dL (Less than 10); Salicylate Less than 8.0 mg/dL (15.0-30.0)
[2017-05-20 13:51] LABS: Amphetamine Not Detected (NotDetected); Cocaine Metabolite Screen Not Detected (NotDetected); Medtox Reader # READER 1; Methamphetamine Not Detected (NotDetected); Opiate Screen Not Detected (NotDetected); Phencyclidine (PCP) Not Detected (NotDetected); THC/Cannabinoid Screen Not Detected (NotDetected)
[2017-05-20 13:51] LABS: ALT (SGPT) 41 U/L (8-55); AST (SGOT) 65 U/L (5-34); Albumin 3.9 g/dL (3.4-4.8); Alkaline Phosphatase 78 U/L (40-150); Anion Gap 17 mmol/L (10-20); BUN (Urea Nitrogen) 8 mg/dL (8.4-25.7); Bilirubin, Total 0.8 mg/dL (0.2-1.2); Calc. Creatinine Clearance 0 mL/min (70-130); Calcium 8.9 mg/dL (7.8-10.44); Carbon Dioxide 21 mmol/L (23-31); Chloride 105 mmol/L (98-107); Estimated GFR-MDRD 85; Globulin 2.2 g/dL (2.4-3.5); Glucose 106 mg/dL (80-115); Potassium 3.8 mmol/L (3.5-5.1); Protein, Total 6.1 g/dL (5.8-8.1); Sodium 139 mmol/L (136-145)
[2017-05-20 13:52] LABS: Barbiturates Screen Not Detected (NotDetected); Benzodiazepine Screen Detected (NotDetected); Medtox Control Line Valid? VALID (VALID); Methadone Not Detected (NotDetected); Oxycodone Screen Not Detected (NotDetected); Tricyclic Screen Not Detected (NotDetected)
== END 2017-05-20 22:43 | disposition home or self-care (01) ==
LOC: ERS 12:38
DX: G20 Parkinson's disease (principal); F10.20 Alcohol dependence, uncomplicated; I25.2 Old myocardial infarction; I10 Essential (primary) hypertension; J44.9 Chronic obstructive pulmonary disease, unspecified; F31.9 Bipolar disorder, unspecified; Z79.899 Other long term (current) drug therapy
CPT/HCPCS: 36415; 80053; 80306; 80307; 81003; 84443; 85025; 99283

== ENCOUNTER 2017-09-03 17:25 | Inpatient (IN) | payer MEDICARE, MEDICAID ==
[2017-09-03 18:11] LABS: Hemoglobin 15.6 g/dL (14.0-18.0); Mean Corpuscular HGB CONC 34.2 g/dL (32.0-36.0); Mean Corpuscular Hemoglobin 36.1 pg (27.0-31.0); Mean Platelet Volume 6.4 fL (7.4-10.4); Platelet Count 272 thou/uL (130-400); RBC Distribution Width 12.7 % (11.5-14.5); Red Blood Cell (RBC) Count 4.32 mill/uL (4.70-6.10); White Blood Cell (WBC) Count 6.8 thou/uL (4.8-10.8)
[2017-09-03 18:27] LABS: Acetaminophen Less than 6.0 mcg/mL (10.0-30.0); Alcohol 262 mg/dL (Less than 10); Salicylate Less than 8.0 mg/dL (15.0-30.0)
[2017-09-03 18:30] LABS: #Basophils 0.2 thou/uL (0.0-0.2); #Eosinphils 0.8 thou/uL (0.0-0.7); #Lymphocytes 2.5 thou/uL (1.20-3.40); #Monocytes 0.7 thou/uL (0.11-0.59); #Neutrophils 2.6 thou/uL (1.40-6.50); %Basophils 2.3 % (0.0-1.0); %Eosinophils 11.3 % (0.0-10.0); %Lymphocytes 37.1 % (21.0-51.0); %Monocytes 10.8 % (0.0-10.0); %Neutrophils 38.4 % (42.0-75.0); PLT Morphology Comment Appears Adequate
[2017-09-03 18:31] LABS: Bilirubin Negative (Negative); Blood, Urine Negative (Negative); Clarity CLEAR (Clear); Glucose, Urine (Dipstick) Negative (Negative); Leukocyte Negative (Negative); Nitrite Negative (Negative); Protein, Urine (Dipstick) Negative (Neg-Trace); Specific Gravity, Urine 1.008 (1.002-1.036); Urobilinogen 0.2 mg/dL (0.2-1.0)
[2017-09-03 18:40] LABS: Amphetamine Not Detected (NotDetected); Barbiturates Screen Not Detected (NotDetected); Benzodiazepine Screen Not Detected (NotDetected); Cocaine Metabolite Screen Not Detected (NotDetected); Medtox Control Line Valid? VALID (VALID); Medtox Reader # READER 4; Methadone Not Detected (NotDetected); Methamphetamine Not Detected (NotDetected); Opiate Screen Not Detected (NotDetected); Oxycodone Screen Not Detected (NotDetected); Phencyclidine (PCP) Not Detected (NotDetected); THC/Cannabinoid Screen Not Detected (NotDetected); Tricyclic Screen Not Detected (NotDetected)
[2017-09-03 18:56] LABS: ALT (SGPT) 59 U/L (8-55); AST (SGOT) 79 U/L (5-34); Albumin 4.6 g/dL (3.4-4.8); Alkaline Phosphatase 93 U/L (40-150); Anion Gap 18 mmol/L (10-20); BUN (Urea Nitrogen) 8 mg/dL (8.4-25.7); Bilirubin, Total 0.5 mg/dL (0.2-1.2); CK (CPK) 104 U/L (30-200); Calc. Creatinine Clearance 0 mL/min (70-130); Calcium 9.7 mg/dL (7.8-10.44); Carbon Dioxide 21 mmol/L (23-31); Chloride 106 mmol/L (98-107); Estimated GFR-MDRD 89; Globulin 2.6 g/dL (2.4-3.5); Glucose 130 mg/dL (80-115); Potassium 4.4 mmol/L (3.5-5.1); Protein, Total 7.2 g/dL (5.8-8.1); Sodium 141 mmol/L (136-145)
[2017-09-03] MEDS ORDERED: chlordiazePOXIDE HCl 25 MG CAP PO SCH (20:30)
[2017-09-03] MEDS ORDERED: chlordiazePOXIDE HCl 25 MG CAP ONE (20:42)
[2017-09-03] MEDS ORDERED: Acetaminophen 325 MG TAB PO PRN (21:16)
[2017-09-03] MEDS ORDERED: Lorazepam 2 MG/ML VIAL SLOW IVP PRN (21:22)
[2017-09-03] MEDS ORDERED: Albuterol Sulfate 2.5 mg/3 ml Neb ONE (21:45)
[2017-09-03 22:25] VITALS: BMI 25.1
[2017-09-03] MEDS ORDERED: Multivitamins, Adult 10 ML, Folic Acid 1 MG, Thiamine HCl 100 MG in Dextrose 5 %-0.45 %... IV SCH (22:30)
[2017-09-03] MEDS: Ipratropium Bromide 2.5 ml Neb NEB SCH (23:07)
--- NOTE | 2017-09-04 00:33 | HP ---
PRIMARY CARE PHYSICIAN: None. CHIEF COMPLAINT: Generalized weakness. HISTORY OF PRESENT ILLNESS: The patient is a very unfortunate pleasant 67-year-old male with a histo ry of depression and Parkinson's, who presents to the hospital for generalized weakness. Patient als o has a history of bipolar disorder and is on lithium and Latuda at home. The patient states that he normally drinks about 3-4 bottles of wine every day. Patient states that he has been doing this for quite a long time and feels really depressed today and very weak. For this reason, he comes into [facility]. Denies any shortness of breath, chest pain, nausea, vomiting, or diarrhea. Patient live s alone. He denies any suicidal thoughts or ideations or any homicidal thoughts or ideations. PAST MEDICAL HISTORY: 1. History of bipolar disorder. 2. Depression. 3. Parkinson's questionable, not sure if he is officially diagnosed with this. 4. COPD and appears that he has 3 stents in his heart. This is all from the charts. PAST SURGICAL HISTORY: The patient had a prostatectomy and orthopedic surgery, bilateral knee, and r ight shoulder, and also cardiac stents. PSYCHIATRIC HISTORY: The patient has a history of bipolar disorder and depression. SOCIAL HISTORY: The patient drinks about 4-5 bottles of wine a day. He used to smoke, however, quit about 2 to 3 years ago. FAMILY HISTORY: Denies any history of heart disease or depression. ALLERGIES: He has no known drug allergies. MEDICATIONS: Plavix 75 mg daily, Latuda 80 mg daily, lithium 900 mg daily, metoprolol 25 mg daily, a spirin 81 mg daily. REVIEW OF SYSTEMS: The following complete review of systems was negative, unless otherwise mentioned in the HPI or below: Constitutional: Weight loss or gain, ability to conduct usual activities. Sk in: Rash, itching. Eyes: Double vision, pain. ENT/Mouth: Nose bleeding, neck stiffness, pain, te nderness. Cardiovascular: Palpitations, dyspnea on exertion, orthopnea. Respiratory: Shortness of breath, wheezing, cough, hemoptysis, fever or night sweats. Gastrointestinal: Poor appetite, abdom inal pain, heartburn, nausea, vomiting, constipation, or diarrhea. Genitourinary: Urgency, frequenc y, dysuria, nocturia. Musculoskeletal: Pain, swelling. Neurologic/Psychiatric: Anxiety, depressio n. Allergy/Immunologic: Skin rash, bleeding tendency. PHYSICAL EXAMINATION: VITAL SIGNS: Temperature of 98.8, pulse of 97, blood pressure 124/88, O2 sats of 94, 16 respirations . GENERAL: He is awake, alert, oriented x3, does not appear in distress. CARDIOVASCULAR: S1, S2 present. No murmurs, rubs, or gallops. LUNGS: He has got expiratory wheezing all over his lungs. ABDOMEN: Soft, nontender. Bowel sounds are present x2. EXTREMITIES: Lower extremity, no edema. Pedal pulses present x2. SKIN: No cuts or bruises noted in the skin; however, he does have some dermatitis on his face. LABORATORY DATA: As the following: WBC of 6.8, hemoglobin of 15.6, hematocrit 45.6, platelets of 27 2,000. Chemistry: Sodium 141, potassium of 4.4, BUN of 8, creatinine of 0.86, AST is of 79, ALT of 59, alkaline phosphatase of 93. TSH of 1.88. I have ordered a chest x-ray which is pending. ASSESSMENT AND PLAN: The patient is a very nice 67-year-old male who presents to the hospital with g eneralized weakness. 1. Generalized weakness, most likely secondary to his alcohol abuse and possible even malnutrition. We will start the patient on a banana bag, do ASE protocol for withdrawal. His urine did not indica te any acute abnormalities. Chest x-ray is pending. 2. Alcohol abuse. Patient drinks about 3 or 4 bottles of wine daily. We will put patient on his al cohol level was at 262. We will start patient on ASE protocol and also p.r.n. Ativan as needed. We will give the patient thiamine and folic acid. Discussed with the patient if patient wants to quit a lcohol use, he stated that he has tried multiple rehabs without any success. 3. Expiratory wheezes in his lungs. A chest x-ray is pending. We will start the patient on some Du oNeb. Continue to monitor. 4. Depression. We will check a lithium level. We will continue the patient's home medications. 5. History of stents. We will continue patient's Plavix and aspirin. 6. Deep vein thrombosis prophylaxis. We will put patient on subcu heparin.
[2017-09-04] MEDS: Ipratropium Bromide 2.5 ml Neb NEB SCH ×5 (02:03→18:15)
[2017-09-04] MEDS: Mometasone/Formoterol 120 PUFF INHALER INH SCH ×2 (06:05→18:17)
[2017-09-04 06:31] LABS: #Basophils 0.1 thou/uL (0.0-0.2); #Eosinphils 0.5 thou/uL (0.0-0.7); #Lymphocytes 1.8 thou/uL (1.20-3.40); #Monocytes 0.7 thou/uL (0.11-0.59); #Neutrophils 3.8 thou/uL (1.40-6.50); %Basophils 1.6 % (0.0-1.0); %Eosinophils 6.5 % (0.0-10.0); %Lymphocytes 26.1 % (21.0-51.0); %Monocytes 10.7 % (0.0-10.0); %Neutrophils 55.1 % (42.0-75.0); Hemoglobin 13.6 g/dL (14.0-18.0); Mean Corpuscular HGB CONC 34.2 g/dL (32.0-36.0); Mean Corpuscular Hemoglobin 36.6 pg (27.0-31.0); Mean Platelet Volume 6.5 fL (7.4-10.4); Platelet Count 211 thou/uL (130-400); Red Blood Cell (RBC) Count 3.73 mill/uL (4.70-6.10); White Blood Cell (WBC) Count 6.9 thou/uL (4.8-10.8)
[2017-09-04 07:01] LABS: ALT (SGPT) 44 U/L (8-55); AST (SGOT) 49 U/L (5-34); Albumin 3.6 g/dL (3.4-4.8); Alkaline Phosphatase 71 U/L (40-150); Anion Gap 11 mmol/L (10-20); BUN (Urea Nitrogen) 10 mg/dL (8.4-25.7); Bilirubin, Total 0.9 mg/dL (0.2-1.2); Calc. Creatinine Clearance 104 mL/min (70-130); Calcium 8.8 mg/dL (7.8-10.44); Carbon Dioxide 27 mmol/L (23-31); Chloride 104 mmol/L (98-107); Estimated GFR-MDRD Greater than 90; Glucose 184 mg/dL (80-115); Potassium 4.6 mmol/L (3.5-5.1); Protein, Total 5.6 g/dL (5.8-8.1); Sodium 137 mmol/L (136-145)
[2017-09-04] MEDS: Heparin 5,000 UNITS/ML VIAL SC SCH ×2 (08:10→14:16)
--- NOTE | 2017-09-04 08:39 | RAD ---
CHEST PA AND LATERAL: HISTORY: A 67-year-old male with a history of shortness of breath, alcohol, depression. COMPARISON: 03/16/15. FINDINGS: Minimal left hemidiaphragm elevation with some horizontal linear and parenchymal changes in the left base which appear more prominent than on prior study, possibly representing some minimal subsegmental atelectasis, progressive fibrosis, or even mild left lower lobe pneumonitis. IMPRESSION: Some linear parenchymal changes in the left base with some left hemidiaphragm elevation, these change s appear more prominent than on prior study raising concern for some left lower lobe subsegmental ate lectasis, mild pneumonitis, and/or some progressive scarring. POS: [facility]
[2017-09-04] MEDS ORDERED: Prevnar 13-Val Conj/PF 0.5 ML SYRINGE IM ONE (09:00)
[2017-09-04] MEDS ORDERED: Folic Acid 1 MG TAB PO SCH (09:00)
[2017-09-04] MEDS ORDERED: Metoprolol Tartrate 25 MG TAB PO SCH (09:00)
[2017-09-04] MEDS ORDERED: Cyanocobalamin (Vitamin B-12) 1,000 MCG TAB PO SCH (09:00)
[2017-09-04] MEDS ORDERED: Clopidogrel Bisulfate 75 MG TAB PO SCH (09:00)
[2017-09-04] MEDS ORDERED: Famotidine 40 MG/4 ML VIAL SLOW IVP SCH (09:00)
[2017-09-04] MEDS ORDERED: Multivitamin W/ Minerals 1 TAB PO SCH (09:00)
[2017-09-04] MEDS ORDERED: Lorazepam 1 MG TAB PO PRN (17:11)
[2017-09-04 18:17] VITALS: BP 150/83; TEMP 99.2
[2017-09-04] MEDS ORDERED: Atorvastatin Calcium 40 MG TAB PO SCH (21:00)
[2017-09-04] MEDS ORDERED: Lithium Carbonate 150 MG CAP PO SCH (21:00)
[2017-09-04] MEDS ORDERED: Famotidine 20 MG TAB PO SCH (21:00)
--- NOTE | 2017-09-05 09:48 | DIS ---
DATE OF DISCHARGE: 09/04/2017 DISCHARGE DISPOSITION: Home. The patient declined home healthcare. 24-hour supervision with fall precaution was emphasized. Outpatient [facility] followup was recommended. The patient was seen and examined on the day of discharge, denies any new complaints, no chest pain, shortness of breath or palpitations. BRIEF HOSPITAL COURSE: The patient is a 67-year-old male with bipolar disorder, chronic alcoholism, and Parkinson disease who presented to the emergency room with generalized weakness. The patient nor papi drinks 3-4 bottles of wine on a daily basis. He called EMS because he felt generally weak. In the emergency room his plasma alcohol was 262. His BUN was 8, creatinine was 0.86. After IV fluids he feels much better. His lithium level was 0.232. Chest x-ray was negative. Urinalysis was negat joi. He is requesting to be discharged. He declined home health care. He denies any suicidal ideat ion. He will follow up with his primary care physician, Dr. Bray, in 1 week. Fall precautions wit h 24-hour supervision was emphasized. He was extensively counseled to quit alcohol drinking. IMPRESSION: 1. Generalized weakness, probably secondary to alcohol abuse. 2. Dehydration. 3. Moderate protein calorie malnutrition. 4. Chronic alcoholism. 5. Bipolar disorder. 6. Coronary artery disease. 7. Parkinson disease. 8. Chronic obstructive pulmonary disease. Plan of care was discussed with the patient in detail. He stated understanding. No changes in his medications were made.
== END 2017-09-04 18:57 | disposition home or self-care (01) | DRG 897 ==
LOC: ERS 17:25 → T4-B 20:30
PROVIDERS: ADMIT Internal Medicine; ATTEND Internal Medicine
DX: F10.129 Alcohol abuse with intoxication, unspecified (principal); G20 Parkinson's disease; J44.9 Chronic obstructive pulmonary disease, unspecified; F31.9 Bipolar disorder, unspecified; Z95.1 Presence of aortocoronary bypass graft; Z90.79 Acquired absence of other genital organ(s); Z87.891 Personal history of nicotine dependence; Z79.02 Long term (current) use of antithrombotics/antiplatelets; Z79.899 Other long term (current) drug therapy; Z79.82 Long term (current) use of aspirin; F41.9 Anxiety disorder, unspecified; Y90.8 Blood alcohol level of 240 mg/100 ml or more; E86.0 Dehydration; I25.10 Atherosclerotic heart disease of native coronary artery without angina pectoris; Z71.41 Alcohol abuse counseling and surveillance of alcoholic
CPT/HCPCS: 36415; 71046; 80053; 80178; 80306; 80307; 81003; 82550; 84443; 85025; 90471; 90670; 93005; 94640; 94760; G0009; G8978-GP-CJ; G8979-GP-CI; J1644; J2060; J3411; J7042; J7611; J7644

== ENCOUNTER 2017-09-15 01:23 | Emergency (ER) | payer OTHER ==
[2017-09-15 02:21] LABS: #Basophils 0.2 thou/uL (0.0-0.2); #Lymphocytes 2.7 thou/uL (1.20-3.40); #Monocytes 0.7 thou/uL (0.11-0.59); #Neutrophils 2.6 thou/uL (1.40-6.50); %Basophils 2.1 % (0.0-1.0); %Eosinophils 14.1 % (0.0-10.0); %Lymphocytes 37.2 % (21.0-51.0); %Monocytes 10.3 % (0.0-10.0); %Neutrophils 36.3 % (42.0-75.0); Hemoglobin 15.2 g/dL (14.0-18.0); Mean Corpuscular HGB CONC 34.6 g/dL (32.0-36.0); Mean Corpuscular Hemoglobin 36.7 pg (27.0-31.0); Mean Platelet Volume 6.4 fL (7.4-10.4); Platelet Count 317 thou/uL (130-400); RBC Distribution Width 12.5 % (11.5-14.5); Red Blood Cell (RBC) Count 4.16 mill/uL (4.70-6.10); White Blood Cell (WBC) Count 7.2 thou/uL (4.8-10.8)
[2017-09-15 02:42] LABS: ALT (SGPT) 71 U/L (8-55); AST (SGOT) 72 U/L (5-34); Acetaminophen Less than 6.0 mcg/mL (10.0-30.0); Albumin 4.1 g/dL (3.4-4.8); Alcohol 246 mg/dL (Less than 10); Alkaline Phosphatase 77 U/L (40-150); Anion Gap 14 mmol/L (10-20); BUN (Urea Nitrogen) 8 mg/dL (8.4-25.7); Bilirubin, Total 0.4 mg/dL (0.2-1.2); Calc. Creatinine Clearance 0 mL/min (70-130); Calcium 9.1 mg/dL (7.8-10.44); Carbon Dioxide 23 mmol/L (23-31); Chloride 107 mmol/L (98-107); Estimated GFR-MDRD Greater than 90; Globulin 2.6 g/dL (2.4-3.5); Glucose 120 mg/dL (80-115); Potassium 4.2 mmol/L (3.5-5.1); Protein, Total 6.7 g/dL (5.8-8.1); Salicylate Less than 8.0 mg/dL (15.0-30.0); Sodium 140 mmol/L (136-145)
[2017-09-15] MEDS ORDERED: Lorazepam 1 MG TAB ONE (04:02)
== END 2017-09-15 04:51 | disposition home or self-care (01) ==
LOC: ERS 01:23
DX: F10.10 Alcohol abuse, uncomplicated (principal); F41.9 Anxiety disorder, unspecified; F31.9 Bipolar disorder, unspecified; I25.2 Old myocardial infarction; I25.10 Atherosclerotic heart disease of native coronary artery without angina pectoris; I10 Essential (primary) hypertension; J45.909 Unspecified asthma, uncomplicated; J44.9 Chronic obstructive pulmonary disease, unspecified; G20 Parkinson's disease; Z87.891 Personal history of nicotine dependence; Z79.02 Long term (current) use of antithrombotics/antiplatelets; Z85.46 Personal history of malignant neoplasm of prostate; Z79.82 Long term (current) use of aspirin; Z79.899 Other long term (current) drug therapy; Y90.8 Blood alcohol level of 240 mg/100 ml or more
CPT/HCPCS: 36415; 80053; 80307; 82550; 84443; 85025; 93005; J7620

== ENCOUNTER 2017-09-15 22:03 | Emergency (ER) | payer OTHER ==
[2017-09-15 23:31] LABS: Bilirubin Negative (Negative); Blood, Urine Negative (Negative); Clarity CLEAR (Clear); Glucose, Urine (Dipstick) Negative (Negative); Leukocyte Negative (Negative); Nitrite Negative (Negative); Protein, Urine (Dipstick) Negative (Neg-Trace); Specific Gravity, Urine 1.005 (1.002-1.036); Urobilinogen 0.2 mg/dL (0.2-1.0)
[2017-09-15 23:32] LABS: #Basophils 0.2 thou/uL (0.0-0.2); #Eosinphils 0.6 thou/uL (0.0-0.7); #Lymphocytes 2.1 thou/uL (1.20-3.40); #Monocytes 0.7 thou/uL (0.11-0.59); #Neutrophils 3.8 thou/uL (1.40-6.50); %Basophils 2.3 % (0.0-1.0); %Eosinophils 8.1 % (0.0-10.0); %Monocytes 9.3 % (0.0-10.0); %Neutrophils 51.2 % (42.0-75.0); Mean Corpuscular HGB CONC 34.4 g/dL (32.0-36.0); Mean Corpuscular Hemoglobin 36.6 pg (27.0-31.0); Mean Platelet Volume 6.8 fL (7.4-10.4); Platelet Count 329 thou/uL (130-400); RBC Distribution Width 12.5 % (11.5-14.5); Red Blood Cell (RBC) Count 4.11 mill/uL (4.70-6.10); White Blood Cell (WBC) Count 7.3 thou/uL (4.8-10.8)
[2017-09-15 23:45] LABS: Amphetamine Not Detected (NotDetected); Cocaine Metabolite Screen Not Detected (NotDetected); Medtox Reader # READER 4; Methamphetamine Not Detected (NotDetected); Opiate Screen Not Detected (NotDetected); Phencyclidine (PCP) Not Detected (NotDetected); THC/Cannabinoid Screen Not Detected (NotDetected)
[2017-09-15 23:46] LABS: Barbiturates Screen Not Detected (NotDetected); Benzodiazepine Screen Detected (NotDetected); Medtox Control Line Valid? VALID (VALID); Methadone Not Detected (NotDetected); Oxycodone Screen Not Detected (NotDetected); Tricyclic Screen Not Detected (NotDetected)
[2017-09-15 23:47] LABS: Acetaminophen Less than 6.0 mcg/mL (10.0-30.0); Alcohol 225 mg/dL (Less than 10); Salicylate Less than 8.0 mg/dL (15.0-30.0)
[2017-09-15 23:48] LABS: ALT (SGPT) 72 U/L (8-55); AST (SGOT) 86 U/L (5-34); Albumin 4.2 g/dL (3.4-4.8); Alkaline Phosphatase 80 U/L (40-150); Anion Gap 17 mmol/L (10-20); BUN (Urea Nitrogen) 9 mg/dL (8.4-25.7); Bilirubin, Total 0.4 mg/dL (0.2-1.2); CK (CPK) 127 U/L (30-200); Calc. Creatinine Clearance 0 mL/min (70-130); Calcium 9.3 mg/dL (7.8-10.44); Carbon Dioxide 21 mmol/L (23-31); Chloride 107 mmol/L (98-107); Estimated GFR-MDRD Greater than 90; Globulin 2.4 g/dL (2.4-3.5); Glucose 115 mg/dL (80-115); Potassium 4.2 mmol/L (3.5-5.1); Protein, Total 6.6 g/dL (5.8-8.1); Sodium 141 mmol/L (136-145)
== END 2017-09-15 23:50 | disposition home or self-care (01) ==
LOC: ERS 22:03
DX: F10.129 Alcohol abuse with intoxication, unspecified (principal); Y90.7 Blood alcohol level of 200-239 mg/100 ml; I25.2 Old myocardial infarction; I10 Essential (primary) hypertension; I25.10 Atherosclerotic heart disease of native coronary artery without angina pectoris; F31.9 Bipolar disorder, unspecified; J44.9 Chronic obstructive pulmonary disease, unspecified; G20 Parkinson's disease; Z85.46 Personal history of malignant neoplasm of prostate; Z87.891 Personal history of nicotine dependence
CPT/HCPCS: 36415; 80053; 80306; 80307; 81003; 82550; 84443; 85025; 93005; J7620

== ENCOUNTER 2017-09-16 20:51 | Emergency (ER) | payer MEDICARE, OTHER | END 2017-09-16 22:48 | disposition home or self-care (01) | LOC: ERS 20:51 | DX: F10.129 Alcohol abuse with intoxication, unspecified (principal); I25.2 Old myocardial infarction; I10 Essential (primary) hypertension; I25.10 Atherosclerotic heart disease of native coronary artery without angina pectoris; J44.9 Chronic obstructive pulmonary disease, unspecified; G20 Parkinson's disease; F31.9 Bipolar disorder, unspecified; Z85.46 Personal history of malignant neoplasm of prostate; Z87.891 Personal history of nicotine dependence | CPT/HCPCS: 99283 ==

== ENCOUNTER 2017-09-17 22:25 | Emergency (ER) | payer MEDICARE, MEDICAID | END 2017-09-18 00:56 | disposition home or self-care (01) | LOC: ERS 22:25 | DX: F10.120 Alcohol abuse with intoxication, uncomplicated (principal); I25.2 Old myocardial infarction; I25.10 Atherosclerotic heart disease of native coronary artery without angina pectoris; I10 Essential (primary) hypertension; J44.9 Chronic obstructive pulmonary disease, unspecified; G20 Parkinson's disease; F31.9 Bipolar disorder, unspecified; Z87.891 Personal history of nicotine dependence; Z85.46 Personal history of malignant neoplasm of prostate | CPT/HCPCS: 99284 ==

== ENCOUNTER 2017-09-18 23:13 | Emergency (ER) | payer MEDICARE, MEDICAID | END 2017-09-19 00:28 | disposition home or self-care (01) | LOC: ERS 23:13 | DX: F10.10 Alcohol abuse, uncomplicated (principal); F31.9 Bipolar disorder, unspecified; I10 Essential (primary) hypertension; I25.2 Old myocardial infarction; I25.10 Atherosclerotic heart disease of native coronary artery without angina pectoris; J44.9 Chronic obstructive pulmonary disease, unspecified; G20 Parkinson's disease; Z87.891 Personal history of nicotine dependence; Z79.899 Other long term (current) drug therapy | CPT/HCPCS: 93005; 99284 ==

== ENCOUNTER 2017-10-02 19:27 | Emergency (ER) | payer MEDICARE, MEDICAID ==
[2017-10-02 20:11] LABS: #Basophils 0.1 thou/uL (0.0-0.2); #Lymphocytes 2.5 thou/uL (1.20-3.40); #Neutrophils 3.6 thou/uL (1.40-6.50); %Basophils 1.5 % (0.0-1.0); %Eosinophils 12.4 % (0.0-10.0); %Lymphocytes 30.4 % (21.0-51.0); %Monocytes 12.4 % (0.0-10.0); %Neutrophils 43.3 % (42.0-75.0); Hemoglobin 15.1 g/dL (14.0-18.0); Mean Corpuscular HGB CONC 33.9 g/dL (32.0-36.0); Mean Corpuscular Hemoglobin 36.4 pg (27.0-31.0); Mean Platelet Volume 6.9 fL (7.4-10.4); Platelet Count 285 thou/uL (130-400); RBC Distribution Width 12.7 % (11.5-14.5); Red Blood Cell (RBC) Count 4.15 mill/uL (4.70-6.10); White Blood Cell (WBC) Count 8.2 thou/uL (4.8-10.8)
--- NOTE | 2017-10-02 20:12 | RAD ---
CHEST ONE VIEW: HISTORY: Pain. COMPARISON: 09/03/2017 FINDINGS: Normal cardiac silhouette. Pulmonary vessels and pulmonary hilum are normal. Costophrenic angles ar e clear. No masses or consolidation. Elevation of the left hemidiaphragm is noted. No pneumothorax or osseous abnormalities. IMPRESSION: No acute cardiopulmonary process. POS: [facility]
[2017-10-02 20:36] LABS: ALT (SGPT) 72 U/L (8-55); AST (SGOT) 60 U/L (5-34); Alkaline Phosphatase 83 U/L (40-150); Anion Gap 17 mmol/L (10-20); BUN (Urea Nitrogen) 9 mg/dL (8.4-25.7); Bilirubin, Total 0.4 mg/dL (0.2-1.2); CK (CPK) 101 U/L (30-200); Calc. Creatinine Clearance 0 mL/min (70-130); Calcium 8.9 mg/dL (7.8-10.44); Carbon Dioxide 20 mmol/L (23-31); Chloride 105 mmol/L (98-107); Estimated GFR-MDRD 83; Globulin 2.5 g/dL (2.4-3.5); Glucose 111 mg/dL (80-115); Lipase 20 U/L (8-78); Potassium 4.2 mmol/L (3.5-5.1); Protein, Total 6.5 g/dL (5.8-8.1); Sodium 138 mmol/L (136-145)
[2017-10-02 20:39] LABS: CKMB 1.7 ng/mL (0-6.6); Troponin I Less than 0.010 ng/mL (< 0.028)
== END 2017-10-02 21:21 | disposition home or self-care (01) ==
LOC: ERS 19:27
DX: R07.9 Chest pain, unspecified (principal); I25.2 Old myocardial infarction; I25.10 Atherosclerotic heart disease of native coronary artery without angina pectoris; I10 Essential (primary) hypertension; J44.9 Chronic obstructive pulmonary disease, unspecified; F31.9 Bipolar disorder, unspecified; Z87.891 Personal history of nicotine dependence; Z79.899 Other long term (current) drug therapy
CPT/HCPCS: 71045; 80053; 82550; 82553; 83690; 84484; 85025; 93005

== ENCOUNTER 2017-10-04 10:37 | Emergency (ER) | payer OTHER ==
[2017-10-04 11:26] LABS: #Basophils 0.2 thou/uL (0.0-0.2); #Eosinphils 0.9 thou/uL (0.0-0.7); #Lymphocytes 2.1 thou/uL (1.20-3.40); #Monocytes 0.6 thou/uL (0.11-0.59); #Neutrophils 2.2 thou/uL (1.40-6.50); %Basophils 2.6 % (0.0-1.0); %Eosinophils 14.7 % (0.0-10.0); %Lymphocytes 35.7 % (21.0-51.0); Mean Corpuscular HGB CONC 33.7 g/dL (32.0-36.0); Mean Platelet Volume 6.6 fL (7.4-10.4); Platelet Count 286 thou/uL (130-400); RBC Distribution Width 12.6 % (11.5-14.5); Red Blood Cell (RBC) Count 4.17 mill/uL (4.70-6.10)
[2017-10-04 11:50] LABS: Acetaminophen Less than 6.0 mcg/mL (10.0-30.0); Alcohol 210 mg/dL (Less than 10); Salicylate Less than 8.0 mg/dL (15.0-30.0)
[2017-10-04 11:51] LABS: ALT (SGPT) 80 U/L (8-55); AST (SGOT) 88 U/L (5-34); Albumin 3.9 g/dL (3.4-4.8); Alkaline Phosphatase 82 U/L (40-150); Anion Gap 13 mmol/L (10-20); BUN (Urea Nitrogen) 8 mg/dL (8.4-25.7); Bilirubin, Total 0.4 mg/dL (0.2-1.2); Calc. Creatinine Clearance 0 mL/min (70-130); Calcium 8.8 mg/dL (7.8-10.44); Carbon Dioxide 21 mmol/L (23-31); Chloride 108 mmol/L (98-107); Estimated GFR-MDRD Greater than 90; Globulin 2.2 g/dL (2.4-3.5); Glucose 134 mg/dL (80-115); Protein, Total 6.1 g/dL (5.8-8.1); Sodium 138 mmol/L (136-145)
[2017-10-04 12:46] LABS: Bilirubin Negative (Negative); Blood, Urine Negative (Negative); Clarity CLEAR (Clear); Glucose, Urine (Dipstick) Negative (Negative); Leukocyte Negative (Negative); Nitrite Negative (Negative); Protein, Urine (Dipstick) Negative (Neg-Trace); Specific Gravity, Urine 1.006 (1.002-1.036); Urobilinogen 0.2 mg/dL (0.2-1.0)
[2017-10-04] MEDS ORDERED: Lorazepam 2 MG/ML VIAL ONE (13:12)
== END 2017-10-04 23:34 | disposition home or self-care (01) ==
LOC: ERS 10:37
DX: F32.9 Major depressive disorder, single episode, unspecified (principal); F10.20 Alcohol dependence, uncomplicated; I25.2 Old myocardial infarction; I10 Essential (primary) hypertension; J44.9 Chronic obstructive pulmonary disease, unspecified; Z79.899 Other long term (current) drug therapy; Z79.82 Long term (current) use of aspirin
CPT/HCPCS: 36415; 80053; 80178; 80307; 81003; 84443; 85025; 93005; 94640; 96374; J2060; J7620

== ENCOUNTER 2017-10-05 21:30 | Inpatient (IN) | payer MEDICARE, MEDICAID ==
[2017-10-05 21:57] LABS: #Basophils 0.2 thou/uL (0.0-0.2); #Eosinphils 1.1 thou/uL (0.0-0.7); #Monocytes 0.9 thou/uL (0.11-0.59); #Neutrophils 4.4 thou/uL (1.40-6.50); %Basophils 1.8 % (0.0-1.0); %Eosinophils 11.8 % (0.0-10.0); %Lymphocytes 31.4 % (21.0-51.0); %Monocytes 9.4 % (0.0-10.0); %Neutrophils 45.7 % (42.0-75.0); Hemoglobin 16.2 g/dL (14.0-18.0); Mean Corpuscular HGB CONC 33.7 g/dL (32.0-36.0); Mean Corpuscular Hemoglobin 35.7 pg (27.0-31.0); Mean Platelet Volume 6.7 fL (7.4-10.4); Platelet Count 326 thou/uL (130-400); RBC Distribution Width 12.7 % (11.5-14.5); Red Blood Cell (RBC) Count 4.53 mill/uL (4.70-6.10); White Blood Cell (WBC) Count 9.6 thou/uL (4.8-10.8)
[2017-10-05 22:09] LABS: ALT (SGPT) 103 U/L (8-55); AST (SGOT) 110 U/L (5-34); Acetaminophen Less than 6.0 mcg/mL (10.0-30.0); Albumin 4.4 g/dL (3.4-4.8); Alcohol 233 mg/dL (Less than 10); Alkaline Phosphatase 110 U/L (40-150); Anion Gap 18 mmol/L (10-20); BUN (Urea Nitrogen) 6 mg/dL (8.4-25.7); Bilirubin, Total 0.5 mg/dL (0.2-1.2); CK (CPK) 150 U/L (30-200); Calc. Creatinine Clearance 0 mL/min (70-130); Carbon Dioxide 23 mmol/L (23-31); Chloride 103 mmol/L (98-107); Estimated GFR-MDRD 86; Globulin 2.9 g/dL (2.4-3.5); Glucose 156 mg/dL (80-115); Protein, Total 7.3 g/dL (5.8-8.1); Salicylate Less than 8.0 mg/dL (15.0-30.0); Sodium 140 mmol/L (136-145)
[2017-10-05] MEDS ORDERED: Ondansetron ODT 8 MG TAB ONE (22:13)
[2017-10-06] MEDS ORDERED: Milk Of Magnesia 30 ML UDCUP PO PRN (03:11)
[2017-10-06 03:24] LABS: Bilirubin Negative (Negative); Blood, Urine Negative (Negative); Clarity CLEAR (Clear); Glucose, Urine (Dipstick) Negative (Negative); Leukocyte Negative (Negative); Nitrite Negative (Negative); Protein, Urine (Dipstick) Negative (Neg-Trace); Specific Gravity, Urine 1.007 (1.002-1.036); Urobilinogen 0.2 mg/dL (0.2-1.0)
[2017-10-06 03:32] LABS: Amphetamine Not Detected (NotDetected); Barbiturates Screen Not Detected (NotDetected); Benzodiazepine Screen Detected (NotDetected); Cocaine Metabolite Screen Not Detected (NotDetected); Medtox Reader # READER 4; Methadone Not Detected (NotDetected); Methamphetamine Not Detected (NotDetected); Opiate Screen Not Detected (NotDetected); Oxycodone Screen Not Detected (NotDetected); Phencyclidine (PCP) Not Detected (NotDetected); THC/Cannabinoid Screen Not Detected (NotDetected); Tricyclic Screen Not Detected (NotDetected)
[2017-10-06 03:33] LABS: Medtox Control Line Valid? VALID (VALID)
[2017-10-06 03:53] VITALS: BMI 25.7
--- NOTE | 2017-10-06 04:37 | HP ---
PRIMARY CARE PHYSICIAN: None. PRESENTING COMPLAINT: "I tried to kill myself." HISTORY OF PRESENT ILLNESS: Mr. Guille Lynch is a 67-year-old male with a past medical history of CAD status post stents, Parkinson's disease, bipolar 2, and COPD who presents to the emergency room after an intentional drug overdose. He reports taking 15 days' worth of his lithium pills as well as three bottles of wine. He usually drinks 3-4 bottles of wine a day and reports withdrawal symptoms with shakes and hallucinations, but denies DTs. He states that he has been feeling depressed for a while now and has been crying out for help and nobody has been there for him, so he decided to end his life today. He currently denies suicidal ideations and says he hopes he has gotten some other tension now. He usually follows up with [facility], but has not seen them for about 90 days. He states he does not have a psychiatrist and does not believe in psychiatry. PAST MEDICAL HISTORY: History of coronary artery disease, [place] x2 status post 3 stent placements, hypertension, Parkinson's disease, bipolar disorder, COPD. PAST SURGICAL HISTORY: Prostatectomy, bilateral knee and shoulder surgeries. FAMILY HISTORY: Reviewed and noncontributory. SOCIAL HISTORY: Drinks 3-4 bottles of wine daily. He said he could quit smoking cigarettes about 2 years ago. Does not use illicit drugs. ALLERGIES: None. HOME MEDICATIONS: Albuterol sulfate inhaler 2 puffs q.4 hours p.r.n. for shortness of breath, aspirin 81 mg at bedtime, Plavix 75 mg at bedtime, fluticasone/salmeterol 1 puff inhaled b.i.d., lithium carbonate 900 mg at bedtime, lurasidone hydrochloride 60 mg q.p.m. with meals, metoprolol tartrate 25 mg p.o. at bedtime. REVIEW OF SYSTEMS: All systems reviewed and negative except as stated in HPI. It is negative for chest pain, shortness of breath, palpitations, PND, orthopnea. In addition, Toxicology was called to the emergency room and recommended monitoring lithium levels and hydrating the patient. He will also be monitored on telemetry per recommendations. PHYSICAL EXAMINATION: VITAL SIGNS: On arrival, blood pressure 139/103, pulse 104, respiratory rate 20 , temperature 98.6 degrees Fahrenheit, oxygen saturation 90% on room air. GENERAL: Not in acute distress, lying comfortably in bed. HEENT: Normocephalic, atraumatic. Not pale, anicteric. Moist mucous membrane. EYES: PERRLA. EOMI. NECK: Supple, full range of movement. No edema. RESPIRATORY: Vesicular breath sounds bilaterally. No wheezes, rales or rhonchi. CARDIOVASCULAR: S1 and S2 only. Regular rate and rhythm. No murmurs, rubs or gallops. ABDOMEN: Soft, nontender, nondistended. Bowel sounds normoactive. NEUROLOGIC: Bilateral tremors in extremities (the patient has Parkinson's), otherwise alert and well oriented. No focal deficits. PSYCHIATRIC: Admits to depressed mood, but denies suicidal or homicidal ideations. SKIN: No rashes or lesions. MUSCULOSKELETAL: No edema. LABORATORY DATA: CBC with no major abnormalities. CMP normal apart from chronic elevation of AST and ALT. Urine toxicology positive for plasma alcohol (233) and lithium 2.668. ASSESSMENT AND PLAN: 1. Intentional overdose of [place]: The patient reports intentionally taking at least 15 lithium pills and three bottles of wine in an intentional suicidal attempt. He will be admitted to telemetry, his lithium level will be monitored. He will also be hydrated and placed on 1:1 patient safety observation. We will monitor his inputs and outputs as well as serum sodium re diabetes insipidus. 2. Chronic Alcohol dependency: The patient has a history of chronic alcohol abuse and dependence, drinks 3-4 bottles of wine daily and reports withdrawal symptoms. We will place him on a protocol for withdrawal, with a banana bag, multivitamins, thiamine, and folate p.o. He will also be monitored on telemetry. 3. Coronary artery disease, status post stent placement: The patient is currently chest pain free. We will resume home medications once they have been confirmed. 4. Bipolar disorder type 2: The patient is currently admitted for suicidal attempt. We will hold off on lithium and have MR see him while he is in the hospital. 5. Chronic obstructive pulmonary disease: Not in acute exacerbation. We will place on nebulizer therapy as needed. Deep venous thrombosis prophylaxis with subcutaneous heparin. CODE STATUS: FULL CODE. MTDD
[2017-10-06] MEDS ORDERED: Multivitamins, Adult 10 ML, Folic Acid 1 MG, Thiamine HCl 100 MG in Dextrose 5 %-0.45 %... IV SCH (05:00)
[2017-10-06] MEDS: Lorazepam 2 MG/ML VIAL SLOW IVP PRN ×5 (05:13→23:45)
[2017-10-06 05:16] LABS: #Basophils 0.1 thou/uL (0.0-0.2); #Eosinphils 0.4 thou/uL (0.0-0.7); #Lymphocytes 1.3 thou/uL (1.20-3.40); #Monocytes 0.5 thou/uL (0.11-0.59); #Neutrophils 3.9 thou/uL (1.40-6.50); %Basophils 1.7 % (0.0-1.0); %Eosinophils 6.8 % (0.0-10.0); %Lymphocytes 21.1 % (21.0-51.0); %Monocytes 7.3 % (0.0-10.0); %Neutrophils 63.2 % (42.0-75.0); Hemoglobin 14.5 g/dL (14.0-18.0); Mean Corpuscular HGB CONC 33.7 g/dL (32.0-36.0); Mean Corpuscular Hemoglobin 36.4 pg (27.0-31.0); Mean Platelet Volume 6.8 fL (7.4-10.4); Platelet Count 287 thou/uL (130-400); RBC Distribution Width 12.7 % (11.5-14.5); Red Blood Cell (RBC) Count 3.98 mill/uL (4.70-6.10); White Blood Cell (WBC) Count 6.1 thou/uL (4.8-10.8)
[2017-10-06 05:34] LABS: ALT (SGPT) 82 U/L (8-55); AST (SGOT) 83 U/L (5-34); Albumin 3.5 g/dL (3.4-4.8); Alkaline Phosphatase 80 U/L (40-150); Anion Gap 11 mmol/L (10-20); BUN (Urea Nitrogen) 5 mg/dL (8.4-25.7); Bilirubin, Total 0.4 mg/dL (0.2-1.2); Calc. Creatinine Clearance 105 mL/min (70-130); Calcium 8.5 mg/dL (7.8-10.44); Carbon Dioxide 25 mmol/L (23-31); Chloride 106 mmol/L (98-107); Estimated GFR-MDRD 90; Globulin 2.2 g/dL (2.4-3.5); Glucose 108 mg/dL (80-115); Potassium 4.1 mmol/L (3.5-5.1); Protein, Total 5.7 g/dL (5.8-8.1); Sodium 138 mmol/L (136-145)
[2017-10-06] MEDS: Albuterol Sulfate 2.5 mg/3 ml Neb NEB PRN ×5 (08:28→23:40)
--- NOTE | 2017-10-06 08:46 | PDOC.PN ---
- Subjective Encounter Start Date: 10/06/17 Encounter Start Time: 08:43 Subjective: states OD was suicide gesture for attention to his problems - Objective MAR Reviewed: Yes Vital Signs & Weight: Vital Signs (12 hours) Temp Pulse Resp BP BP Pulse Ox 10/06/17 08:28 94 18 10/06/17 07:35 99.2 F 92 20 122/92 H 122/92 H 100 10/06/17 05:00 149/80 H I&O: 10/05/17 10/06/17 10/07/17 06:59 06:59 06:59 Intake Total 1400 Balance 1400 Result Diagrams: 10/06/17 05:05 10/06/17 05:05 Phys Exam - Physical Examination Neck: no JVD Respiratory: clear to auscultation bilateral Cardiovascular: RRR, no significant murmur Gastrointestinal: soft, positive bowel sounds Musculoskeletal: no edema parkinsonian tremor Dx/Plan (1) Intentional lithium overdose Code(s): T56.892A - TOXIC EFFECT OF OTH METALS, INTENTIONAL SELF-HARM, INIT Status: Acute Qualifiers: Encounter type: initial encounter Qualified Code(s): T56.892A - Toxic effect of other metals, intentional self-harm, initial encounter (2) Bipolar 2 disorder Code(s): F31.81 - BIPOLAR II DISORDER Status: Chronic (3) Alcohol abuse Code(s): F10.10 - ALCOHOL ABUSE, UNCOMPLICATED Status: Chronic (4) COPD (chronic obstructive pulmonary disease) Status: Chronic Qualifiers: Emphysema type: unspecified (5) Depression Code(s): F32.9 - MAJOR DEPRESSIVE DISORDER, SINGLE EPISODE, UNSPECIFIED Status : Chronic (6) Dyslipidemia Code(s): E78.5 - HYPERLIPIDEMIA, UNSPECIFIED Status: Chronic (7) Hypertension Code(s): I10 - ESSENTIAL (PRIMARY) HYPERTENSION Status: Chronic (8) Parkinson disease Code(s): G20 - PARKINSON'S DISEASE Status: Chronic - Plan lithium level high, monitor -: selected home meds -: eventual [facility] referral * .
[2017-10-06] MEDS ORDERED: PROVENTIL INHALER 6.7 G (200 INHALATIONS) INH PRN (08:49)
[2017-10-06] MEDS: Heparin 5,000 UNITS/ML VIAL SC SCH ×3 (08:57→19:53)
[2017-10-06] MEDS: Folic Acid/Vit B Comp W-C PO SCH (08:57)
[2017-10-06] MEDS: Docusate 100 MG CAP PO SCH ×2 (08:57→20:05)
[2017-10-06] MEDS ORDERED: Folic Acid 1 MG TAB PO SCH (09:00)
[2017-10-06] MEDS ORDERED: Multivitamins, Adult 10 ML, Thiamine HCl 100 MG, Folic Acid 1 MG in Dextrose 5 %-0.45 %... IV SCH (17:00)
[2017-10-06] MEDS: Aspirin 81 mg Enteric Coated Tablet PO SCH (19:53)
[2017-10-06] MEDS: Clopidogrel Bisulfate 75 MG TAB PO SCH (19:53)
[2017-10-06] MEDS ORDERED: Metoprolol Tartrate 25 MG TAB PO SCH (21:00)
[2017-10-07] MEDS: Albuterol Sulfate 2.5 mg/3 ml Neb NEB PRN ×4 (06:09→20:02)
[2017-10-07] MEDS: Multivitamins, Adult 10 ML, Thiamine HCl 100 MG, Folic Acid 1 MG in Dextrose 5 %-0.45 %... IV SCH (06:09)
[2017-10-07] MEDS: Lorazepam 2 MG/ML VIAL SLOW IVP PRN ×3 (06:12→20:26)
--- NOTE | 2017-10-07 07:46 | PDOC.PN ---
- Subjective Encounter Start Date: 10/07/17 Encounter Start Time: 07:44 Subjective: CO coughing - Objective MAR Reviewed: Yes Vital Signs & Weight: Vital Signs (12 hours) Temp Pulse Resp BP BP BP Pulse Ox 10/07/17 04:00 90/50 L 10/07/17 03:15 98.5 F 79 12 90/50 L 92 L 10/07/17 00:00 101/55 L 10/06/17 20:14 85 20 98 10/06/17 19:52 98.8 F 85 20 112/70 112/70 98 I&O: 10/06/17 10/07/17 10/08/17 06:59 06:59 06:59 Intake Total 1400 2200 Output Total 700 Balance 1400 1500 Result Diagrams: 10/06/17 05:05 10/06/17 05:05 Phys Exam - Physical Examination Neck: no JVD post rhonchi Cardiovascular: RRR, no significant murmur Gastrointestinal: soft, non-tender, positive bowel sounds Musculoskeletal: no edema Dx/Plan (1) Intentional lithium overdose Code(s): T56.892A - TOXIC EFFECT OF OTH METALS, INTENTIONAL SELF-HARM, INIT Status: Acute Qualifiers: Encounter type: initial encounter Qualified Code(s): T56.892A - Toxic effect of other metals, intentional self-harm, initial encounter (2) Bipolar 2 disorder Code(s): F31.81 - BIPOLAR II DISORDER Status: Chronic (3) Alcohol abuse Code(s): F10.10 - ALCOHOL ABUSE, UNCOMPLICATED Status: Chronic (4) COPD (chronic obstructive pulmonary disease) Status: Chronic Qualifiers: Emphysema type: unspecified (5) Depression Code(s): F32.9 - MAJOR DEPRESSIVE DISORDER, SINGLE EPISODE, UNSPECIFIED Status : Chronic (6) Dyslipidemia Code(s): E78.5 - HYPERLIPIDEMIA, UNSPECIFIED Status: Chronic (7) Hypertension Code(s): I10 - ESSENTIAL (PRIMARY) HYPERTENSION Status: Chronic (8) Parkinson disease Code(s): G20 - PARKINSON'S DISEASE Status: Chronic - Plan lithium levei still elevated -: CXR -: cont banana bag daily -: selecyed home meds * .
[2017-10-07] MEDS: Docusate 100 MG CAP PO SCH ×2 (08:02→20:32)
[2017-10-07] MEDS: Heparin 5,000 UNITS/ML VIAL SC SCH ×3 (08:03→20:10)
[2017-10-07] MEDS: Folic Acid/Vit B Comp W-C PO SCH (08:03)
[2017-10-07] MEDS ORDERED: Prevnar 13-Val Conj/PF 0.5 ML SYRINGE IM ONE (09:00)
--- NOTE | 2017-10-07 09:31 | RAD ---
PA AND LATERAL VIEWS OF CHEST: Date: 10/07/17 HISTORY: Cough. FINDINGS: Comparison made with exam of 10/02/17. The heart size is normal. The lungs are expanded with mild infiltrate at the left lung base. No pneum othoraces or pleural effusions are seen. IMPRESSION: Findings are suspicious for left basilar pneumonia. POS: [facility]
[2017-10-07] MEDS: Clopidogrel Bisulfate 75 MG TAB PO SCH (20:10)
[2017-10-07] MEDS: Aspirin 81 mg Enteric Coated Tablet PO SCH (20:10)
[2017-10-08] MEDS: Albuterol Sulfate 2.5 mg/3 ml Neb NEB PRN ×4 (02:02→19:30)
[2017-10-08] MEDS: Lorazepam 2 MG/ML VIAL SLOW IVP PRN ×4 (04:25→19:04)
[2017-10-08] MEDS: Multivitamins, Adult 10 ML, Thiamine HCl 100 MG, Folic Acid 1 MG in Dextrose 5 %-0.45 %... IV SCH (05:33)
--- NOTE | 2017-10-08 07:29 | PDOC.PN ---
- Subjective Encounter Start Date: 10/08/17 Encounter Start Time: 07:27 Subjective: some cough, minimal sob - Objective MAR Reviewed: Yes Vital Signs & Weight: Vital Signs (12 hours) Temp Pulse Resp BP BP BP Pulse Ox 10/08/17 06:52 94 L 10/08/17 06:51 76 16 94 L 10/08/17 03:31 98.5 F 71 16 91/54 L 96 10/08/17 02:02 95 10/08/17 00:05 98.8 F 71 18 90/52 L 98 10/08/17 00:00 90/52 L 10/07/17 20:10 98.8 F 71 18 92 L 10/07/17 20:04 95 10/07/17 20:02 95 10/07/17 19:45 98.7 F 74 18 90/55 L 127/81 92 L I&O: 10/07/17 10/08/17 10/09/17 06:59 06:59 06:59 Intake Total 2200 740 Output Total 700 Balance 1500 740 Result Diagrams: 10/06/17 05:05 10/06/17 05:05 Radiology Reviewed by me: Yes (cxr- LLL infiltrate) Phys Exam - Physical Examination Neck: no JVD coarse BS, rales LLL field Cardiovascular: RRR, no significant murmur Gastrointestinal: soft, positive bowel sounds Musculoskeletal: no edema Dx/Plan (1) Intentional lithium overdose Code(s): T56.892A - TOXIC EFFECT OF OTH METALS, INTENTIONAL SELF-HARM, INIT Status: Acute Qualifiers: Encounter type: initial encounter Qualified Code(s): T56.892A - Toxic effect of other metals, intentional self-harm, initial encounter (2) Bipolar 2 disorder Code(s): F31.81 - BIPOLAR II DISORDER Status: Chronic (3) Alcohol abuse Code(s): F10.10 - ALCOHOL ABUSE, UNCOMPLICATED Status: Chronic (4) COPD (chronic obstructive pulmonary disease) Status: Chronic Qualifiers: Emphysema type: unspecified (5) Depression Code(s): F32.9 - MAJOR DEPRESSIVE DISORDER, SINGLE EPISODE, UNSPECIFIED Status : Chronic (6) Dyslipidemia Code(s): E78.5 - HYPERLIPIDEMIA, UNSPECIFIED Status: Chronic (7) Hypertension Code(s): I10 - ESSENTIAL (PRIMARY) HYPERTENSION Status: Chronic (8) Parkinson disease Code(s): G20 - PARKINSON'S DISEASE Status: Chronic (9) PNA (pneumonia) Code(s): J18.9 - PNEUMONIA, UNSPECIFIED ORGANISM Status: Acute Qualifiers: Pneumonia type: due to Pneumococcus Laterality: left Lung location: lower lobe of lung Qualified Code(s): J13 - Pneumonia due to Streptococcus pneumoniae - Plan CBC, blood C&S, start po levaquin -: Li level now low, reinstitute Li TX * .
[2017-10-08 07:36] LABS: #Basophils 0.1 thou/uL (0.0-0.2); #Eosinphils 1.1 thou/uL (0.0-0.7); #Lymphocytes 1.2 thou/uL (1.20-3.40); #Monocytes 0.6 thou/uL (0.11-0.59); #Neutrophils 6.4 thou/uL (1.40-6.50); %Basophils 1.4 % (0.0-1.0); %Eosinophils 11.4 % (0.0-10.0); %Lymphocytes 12.7 % (21.0-51.0); %Monocytes 6.3 % (0.0-10.0); %Neutrophils 68.3 % (42.0-75.0); Hemoglobin 13.8 g/dL (14.0-18.0); Mean Corpuscular HGB CONC 33.7 g/dL (32.0-36.0); Mean Corpuscular Hemoglobin 36.3 pg (27.0-31.0); Mean Platelet Volume 7.2 fL (7.4-10.4); Platelet Count 248 thou/uL (130-400); RBC Distribution Width 12.5 % (11.5-14.5); White Blood Cell (WBC) Count 9.4 thou/uL (4.8-10.8)
[2017-10-08] MEDS: Folic Acid/Vit B Comp W-C PO SCH (08:27)
[2017-10-08] MEDS: Heparin 5,000 UNITS/ML VIAL SC SCH ×3 (08:27→20:06)
[2017-10-08] MEDS: Docusate 100 MG CAP PO SCH ×2 (08:28→20:05)
[2017-10-08] MEDS: Aspirin 81 mg Enteric Coated Tablet PO SCH (20:05)
[2017-10-08] MEDS: Clopidogrel Bisulfate 75 MG TAB PO SCH (20:05)
[2017-10-09] MEDS: Albuterol Sulfate 2.5 mg/3 ml Neb NEB PRN (00:19)
[2017-10-09] MEDS: Multivitamins, Adult 10 ML, Thiamine HCl 100 MG, Folic Acid 1 MG in Dextrose 5 %-0.45 %... IV SCH (05:38)
[2017-10-09] MEDS: Docusate 100 MG CAP PO SCH ×2 (08:26→21:11)
[2017-10-09] MEDS: Heparin 5,000 UNITS/ML VIAL SC SCH ×3 (08:26→21:12)
[2017-10-09] MEDS: Folic Acid/Vit B Comp W-C PO SCH (08:26)
[2017-10-09] MEDS: Lorazepam 2 MG/ML VIAL SLOW IVP PRN ×3 (08:34→21:22)
--- NOTE | 2017-10-09 10:44 | PDOC.PN ---
- Subjective Encounter Start Date: 10/09/17 Encounter Start Time: 09:00 -: old records requested/rev Patient seen and examined for pneumonia. No new complaints. No overnight events - Objective MAR Reviewed: Yes Vital Signs & Weight: Vital Signs (12 hours) Temp Pulse Resp BP BP Pulse Ox 10/09/17 08:00 98.5 F 85 18 161/68 H 91 L 10/09/17 07:21 98.5 F 85 18 123/78 91 L 10/09/17 06:17 76 18 94 L 10/09/17 04:08 98.8 F 76 18 125/73 125/73 92 L 10/09/17 04:00 98.8 F 76 20 125/73 92 L 10/09/17 00:19 76 20 92 L 10/09/17 00:17 110/67 10/09/17 00:00 98.6 F 73 20 110/67 94 L I&O: 10/08/17 10/09/17 10/10/17 06:59 06:59 06:59 Intake Total 740 3150 Balance 740 3150 Result Diagrams: 10/08/17 05:10 10/06/17 05:05 Phys Exam - Physical Examination Constitutional: NAD HEENT: PERRLA, moist MMs, sclera anicteric Neck: no JVD, supple Respiratory: no wheezing, no rales, no rhonchi Cardiovascular: RRR, no significant murmur, no rub Gastrointestinal: soft, non-tender, no distention, positive bowel sounds Musculoskeletal: no edema, pulses present Neurological: moves all 4 limbs Lymphatic: no nodes Psychiatric: normal affect, A&O x 3 Skin: no rash, normal turgor Dx/Plan (1) Intentional lithium overdose Code(s): T56.892A - TOXIC EFFECT OF OTH METALS, INTENTIONAL SELF-HARM, INIT Status: Acute Qualifiers: Encounter type: initial encounter Qualified Code(s): T56.892A - Toxic effect of other metals, intentional self-harm, initial encounter (2) PNA (pneumonia) Code(s): J18.9 - PNEUMONIA, UNSPECIFIED ORGANISM Status: Acute Qualifiers: Pneumonia type: due to Pneumococcus Laterality: left Lung location: lower lobe of lung Qualified Code(s): J13 - Pneumonia due to Streptococcus pneumoniae (3) Alcohol abuse Code(s): F10.10 - ALCOHOL ABUSE, UNCOMPLICATED Status: Chronic (4) Bipolar 2 disorder Code(s): F31.81 - BIPOLAR II DISORDER Status: Chronic (5) COPD (chronic obstructive pulmonary disease) Status: Chronic Qualifiers: Emphysema type: unspecified (6) Coronary artery disease Code(s): I25.10 - ATHSCL HEART DISEASE OF [place] CORONARY ARTERY W/O ANG PCTRS Status: Chronic (7) Depression Code(s): F32.9 - MAJOR DEPRESSIVE DISORDER, SINGLE EPISODE, UNSPECIFIED Status : Chronic (8) Dyslipidemia Code(s): E78.5 - HYPERLIPIDEMIA, UNSPECIFIED Status: Chronic (9) Hypertension Code(s): I10 - ESSENTIAL (PRIMARY) HYPERTENSION Status: Chronic (10) Macrocytic anemia Code(s): D53.9 - NUTRITIONAL ANEMIA, UNSPECIFIED Status: Chronic (11) Parkinson disease Code(s): G20 - PARKINSON'S DISEASE Status: Chronic - Plan cont current plan of care, plan discussed w/ family, continue antibiotics * pt has significant improvement * will call [facility], then based on their decision will consider discharge * medication reviewed as below * symptomatic treatment * continue levaquin for now. Review of Systems - Review of Systems Eyes: negative: Pain, Vision Change, Conjunctivae Inflammation, Eyelid Inflammation, Redness, Other ENT: negative: Ear Pain, Ear Discharge, Nose Pain, Nose Discharge, Nose Congestion, Mouth Pain, Mouth Swelling, Throat Pain, Throat Swelling, Other Respiratory: negative: Cough, Dry, Shortness of Breath, Hemoptysis, SOB with Excertion, Pleuritic Pain, Sputum, Wheezing Cardiovascular: negative: chest pain, palpitations, orthopnea, paroxysmal nocturnal dyspnea, edema, light headedness, other Gastrointestinal: negative: Nausea, Vomiting, Abdominal Pain, Diarrhea, Constipation, Melena, Hematochezia, Other Genitourinary: negative: Dysuria, Frequency, Incontinence, Hematuria, Retention , Other Musculoskeletal: negative: Neck Pain, Shoulder Pain, Arm Pain, Back Pain, Hand Pain, Leg Pain, Foot Pain, Other Skin: negative: Rash, Lesions, [place], Bruising, Other - Medications/Allergies Allergies/Adverse Reactions: Allergies Allergy/AdvReac Type Severity Reaction Status Date / Time No Known Allergies Allergy Verified 06/16/14 15:08 Medications: Current Medications Albuterol Sulfate (Ventolin) 2.5 mg NEB [id number] PRN PRN Reason: Wheezing Last Admin: 10/09/17 00:19 Dose: 2.5 mg Albuterol Sulfate (Proventil Hfa) 2 puff INH Q4H PRN PRN Reason: Dyspnea Albuterol/Ipratropium (Duoneb) 3 ml NEB [id number] COUNT INCLUDES THE [facility] Last Admin: 10/09/17 06:17 Dose: 3 ml Aspirin (Ecotrin) 81 mg PO [facility] Last Admin: 10/08/17 20:05 Dose: 81 mg Clopidogrel Bisulfate (Plavix) 75 mg PO HS COUNT INCLUDES THE [facility] Last Admin: 10/08/17 20:05 Dose: 75 mg Docusate Sodium (Colace) 100 mg PO BID COUNT INCLUDES THE [facility] Last Admin: 10/09/17 08:26 Dose: Not Given Heparin Sodium (Porcine) (Heparin) 5,000 units SC TID COUNT INCLUDES THE [facility] Last Admin: 10/09/17 08:26 Dose: 5,000 units Multivitamins 10 ml/ Thiamine HCl 100 mg/ Folic Acid 1 mg/Dextrose/Sodium Chloride 1,011.2 mls @ 100 mls/hr IV 0600 COUNT INCLUDES THE [facility] Last Admin: 10/09/17 05:38 Dose: 1,011.2 mls Levofloxacin (Levaquin) 750 mg PO 0600 COUNT INCLUDES THE [facility] Last Admin: 10/09/17 05:41 Dose: 750 mg [place] Carbonate (Lithobid Er) 900 mg PO [facility] Last Admin: 10/08/17 20:06 Dose: 900 mg Lorazepam (Ativan) 1 mg SLOW IVP Q4H PRN PRN Reason: Anxiety/Agitation Last Admin: 10/09/17 08:34 Dose: 1 mg Magnesium Hydroxide (Milk Of Magnesium) 30 ml PO DAILYPRN PRN PRN Reason: Constipation Sodium Chloride (Flush - Normal Saline) 10 ml IVF Q12HR COUNT INCLUDES THE [facility] Last Admin: 10/09/17 08:26 Dose: Not Given Sodium Chloride (Flush - Normal Saline) 10 ml IVF PRN PRN PRN Reason: Saline Flush Last Admin: 10/06/17 23:45 Dose: 10 ml Thiamine HCl (Thiamine) 100 mg PO DAILY COUNT INCLUDES THE [facility] Last Admin: 10/09/17 08:26 Dose: 100 mg Vitamin B Complex/Vit C/Folic Acid (Nephro-Nish Tablet) 1 tab PO DAILY COUNT INCLUDES THE [facility] Last Admin: 10/09/17 08:26 Dose: 1 tab
--- NOTE | 2017-10-09 12:43 | DIS ---
PRIMARY CARE PHYSICIAN: Dr. Evert Bray. DATE OF ADMISSION: 10/06/2017 DATE OF DISCHARGE: 10/09/2017 DISCHARGE DISPOSITION: Home/psych facility. PRIMARY DISCHARGE DIAGNOSES: 1. Intentional lithium overdose. 2. Community-acquired bacterial pneumonia. SECONDARY DISCHARGE DIAGNOSES: Parkinson disease, macrocytic anemia, hypertension, dyslipidemia, anx iety and depression, coronary artery disease, chronic obstructive pulmonary disease, bipolar 2 disord er, alcohol abuse. PRIMARY PROCEDURE/OPERATION: None. RADIOLOGICAL INVESTIGATION: Chest x-ray showed left lower lobe consolidation. SIGNIFICANT LABORATORY DATA: WBC 9.8, hemoglobin 13.8, platelet 248. Sodium 138, creatinine 0.85, A ST 83, ALT 82. TSH 1.50. Urinalysis normal. Leach level now 0.818. DISCHARGE MEDICATIONS: Ventolin inhaler 2 puffs q.4 hourly p.r.n., aspirin 81 mg p.o. daily, Plavix 75 mg p.o. at bedtime, metoprolol 25 mg p.o. at bedtime, Levaquin 750 mg p.o. daily for 5 more days, folic acid 1 mg p.o. daily, vitamin B12 of 1000 mcg p.o. daily, thiamine 100 mg p.o. daily, lithium n ow 900 mg p.o. at bedtime. CONTRAINDICATIONS: None. CODE STATUS: FULL CODE. INPATIENT CONSULTANTS: [facility]. TEST RESULTS PENDING ON DISCHARGE: None. ALLERGIES: No known drug allergy. DISCHARGE PLAN: Post hospital, the patient will be discharged to home versus psych facility based on [facility] recommendations. HOSPITAL COURSE: A 67-year-old male who was admitted by Dr. Fuentes on 10/06/2017. Please see his H and P for further detail. The patient was admitted for his intentional drug overdose with lithium. Today, he reported to me that he was kept coming in the emergency room and nobody was putting any a ttention to him and he was not getting admitted and that is why to take more attention to him that wh y he tried to take more lithium pills and subsequently he was evaluated in the emergency room. His l ithium level was very high. He was admitted to the hospital. He had pneumonia on left lower lobe ba sed on chest x-ray. He was treated with levofloxacin while in hospital. When his lithium level came back to a subtherapeutic level at that point lithium medicine started on his regimen for his bipolar disorder. He is medically stable. He is afebrile, tolerating p.o. well. He is not suicidal anymor e, but he wants [facility] to see him and [facility] will decide whether he is safe to go home versus psych facil ity. Otherwise, the patient is medically stable for discharge. He will finish antibiotic therapy fo r a total of 5 more days. The patient is seen and examined at bedside today. Please see my progress note from today for furthe r details.
[2017-10-09 21:07] VITALS: BP 159/92
[2017-10-09 21:08] VITALS: TEMP 98
[2017-10-09] MEDS: Clopidogrel Bisulfate 75 MG TAB PO SCH (21:10)
[2017-10-09] MEDS: Aspirin 81 mg Enteric Coated Tablet PO SCH (21:11)
== END 2017-10-09 22:20 | DRG 917 ==
LOC: ERS 21:30 → 2NO 10-06 03:47 → T4-B 10-08 09:38
PROVIDERS: ADMIT Internal Medicine; ATTEND Internal Medicine
DX: T56.892A Toxic effect of other metals, intentional self-harm, initial encounter (principal); J13 Pneumonia due to Streptococcus pneumoniae; F31.81 Bipolar II disorder; R45.851 Suicidal ideations; I25.10 Atherosclerotic heart disease of native coronary artery without angina pectoris; G20 Parkinson's disease; J44.9 Chronic obstructive pulmonary disease, unspecified; I10 Essential (primary) hypertension; F10.229 Alcohol dependence with intoxication, unspecified; F32.9 Major depressive disorder, single episode, unspecified; E78.5 Hyperlipidemia, unspecified; Z90.79 Acquired absence of other genital organ(s); Z87.891 Personal history of nicotine dependence; Z79.82 Long term (current) use of aspirin; Z79.51 Long term (current) use of inhaled steroids; Z79.899 Other long term (current) drug therapy; I25.2 Old myocardial infarction; Z95.5 Presence of coronary angioplasty implant and graft
CPT/HCPCS: 36415; 71046; 80053; 80178; 80306; 80307; 81003; 82550; 84443; 85025; 87040; 90471; 90670; 93005; 94640; 94760; 96360; 96361; A4216; G0009; J1644; J2060; J3411; J7042; J7611; J7620

== ENCOUNTER 2017-10-25 20:33 | Emergency (ER) | payer MEDICARE, MEDICAID ==
[2017-10-25 22:36] LABS: #Basophils 0.2 thou/uL (0.0-0.2); #Eosinphils 1.3 thou/uL (0.0-0.7); #Lymphocytes 2.8 thou/uL (1.20-3.40); #Monocytes 0.4 thou/uL (0.11-0.59); #Neutrophils 4.7 thou/uL (1.40-6.50); %Eosinophils 13.6 % (0.0-10.0); %Lymphocytes 29.6 % (21.0-51.0); %Monocytes 4.1 % (0.0-10.0); %Neutrophils 50.7 % (42.0-75.0); Hemoglobin 15.6 g/dL (14.0-18.0); Mean Corpuscular HGB CONC 34.6 g/dL (32.0-36.0); Mean Corpuscular Hemoglobin 35.9 pg (27.0-31.0); Mean Platelet Volume 6.5 fL (7.4-10.4); Platelet Count 390 thou/uL (130-400); RBC Distribution Width 12.4 % (11.5-14.5); Red Blood Cell (RBC) Count 4.34 mill/uL (4.70-6.10); White Blood Cell (WBC) Count 9.4 thou/uL (4.8-10.8)
[2017-10-25 22:54] LABS: Bilirubin Negative (Negative); Blood, Urine Trace (Negative); Clarity CLEAR (Clear); Glucose, Urine (Dipstick) Negative (Negative); Leukocyte Negative (Negative); Nitrite Negative (Negative); Protein, Urine (Dipstick) Trace mg/dL (Neg-Trace); Specific Gravity, Urine 1.006 (1.002-1.036); Urobilinogen 0.2 mg/dL (0.2-1.0); pH, Urine 5.5 (5.0-9.0)
[2017-10-25 22:56] LABS: Bacteria/HPF None Seen HPF (None Seen); Hyaline Casts/LPF 0-3 HYALINE CAST LPF (0-3 Hyaline); RBC/HPF None Seen HPF (0-3); Squamous Epithelial None Seen HPF (0-3); WBC/HPF None Seen HPF (0-3)
[2017-10-25 23:00] LABS: ALT (SGPT) 56 U/L (8-55); AST (SGOT) 61 U/L (5-34); Acetaminophen Less than 6.0 mcg/mL (10.0-30.0); Albumin 4.3 g/dL (3.4-4.8); Alcohol 257 mg/dL (Less than 10); Alkaline Phosphatase 78 U/L (40-150); Anion Gap 19 mmol/L (10-20); BUN (Urea Nitrogen) 15 mg/dL (8.4-25.7); Bilirubin, Total 0.2 mg/dL (0.2-1.2); CK (CPK) 188 U/L (30-200); Calc. Creatinine Clearance 0 mL/min (70-130); Calcium 9.5 mg/dL (7.8-10.44); Carbon Dioxide 21 mmol/L (23-31); Chloride 108 mmol/L (98-107); Estimated GFR-MDRD Greater than 90; Globulin 2.7 g/dL (2.4-3.5); Glucose 128 mg/dL (80-115); Potassium 4.1 mmol/L (3.5-5.1); Salicylate Less than 8.0 mg/dL (15.0-30.0); Sodium 144 mmol/L (136-145)
[2017-10-25 23:04] LABS: Amphetamine Not Detected (NotDetected); Barbiturates Screen Not Detected (NotDetected); Benzodiazepine Screen Not Detected (NotDetected); Cocaine Metabolite Screen Not Detected (NotDetected); Medtox Control Line Valid? VALID (VALID); Medtox Reader # READER 1; Methadone Not Detected (NotDetected); Methamphetamine Not Detected (NotDetected); Opiate Screen Not Detected (NotDetected); Oxycodone Screen Not Detected (NotDetected); Phencyclidine (PCP) Not Detected (NotDetected); THC/Cannabinoid Screen Not Detected (NotDetected); Tricyclic Screen Not Detected (NotDetected)
[2017-10-26] MEDS ORDERED: Multivitamins, Adult 10 ML, Thiamine HCl 100 MG, Folic Acid 1 MG in Dextrose 5 %-0.45 %... IV SCH (00:45)
[2017-10-26] MEDS ORDERED: Metoprolol Tartrate 25 MG TAB ONE (07:47)
== END 2017-10-26 11:45 | disposition home or self-care (01) ==
LOC: ERS 20:33
DX: R45.851 Suicidal ideations (principal); F10.129 Alcohol abuse with intoxication, unspecified; F31.9 Bipolar disorder, unspecified; I25.2 Old myocardial infarction; I25.10 Atherosclerotic heart disease of native coronary artery without angina pectoris; I10 Essential (primary) hypertension; J44.9 Chronic obstructive pulmonary disease, unspecified; G20 Parkinson's disease; Z87.891 Personal history of nicotine dependence; Y90.8 Blood alcohol level of 240 mg/100 ml or more; Z85.46 Personal history of malignant neoplasm of prostate
CPT/HCPCS: 36415; 80053; 80306; 80307; 81003; 81015; 82550; 85025; 93005; 94640; 96365; 96366; J3411; J7042; J7620

== ENCOUNTER 2017-10-31 00:24 | Emergency (ER) | payer MEDICARE, MEDICAID ==
[2017-10-31 01:20] LABS: Hemoglobin 15.6 g/dL (14.0-18.0); Mean Corpuscular HGB CONC 33.3 g/dL (32.0-36.0); Mean Corpuscular Hemoglobin 35.3 pg (27.0-31.0); Platelet Count 261 thou/uL (130-400); RBC Distribution Width 12.4 % (11.5-14.5); Red Blood Cell (RBC) Count 4.41 mill/uL (4.70-6.10); White Blood Cell (WBC) Count 7.6 thou/uL (4.8-10.8)
[2017-10-31 01:31] LABS: ALT (SGPT) 47 U/L (8-55); AST (SGOT) 41 U/L (5-34); Acetaminophen Less than 6.0 mcg/mL (10.0-30.0); Albumin 4.3 g/dL (3.4-4.8); Alcohol 316 mg/dL (Less than 10); Alcohol 318 mg/dL (Less than 10); Alkaline Phosphatase 79 U/L (40-150); Anion Gap 16 mmol/L (10-20); BUN (Urea Nitrogen) 6 mg/dL (8.4-25.7); Bilirubin, Total 0.4 mg/dL (0.2-1.2); Calc. Creatinine Clearance 0 mL/min (70-130); Calcium 9.5 mg/dL (7.8-10.44); Carbon Dioxide 22 mmol/L (23-31); Chloride 108 mmol/L (98-107); Estimated GFR-MDRD Greater than 90; Globulin 2.7 g/dL (2.4-3.5); Glucose 139 mg/dL (80-115); Potassium 4.2 mmol/L (3.5-5.1); Salicylate Less than 8.0 mg/dL (15.0-30.0); Sodium 142 mmol/L (136-145)
[2017-10-31 01:34] LABS: #Basophils 0.2 thou/uL (0.0-0.2); #Eosinphils 1.1 thou/uL (0.0-0.7); #Lymphocytes 2.8 thou/uL (1.20-3.40); #Monocytes 0.6 thou/uL (0.11-0.59); #Neutrophils 2.9 thou/uL (1.40-6.50); %Basophils 2.2 % (0.0-1.0); %Lymphocytes 36.4 % (21.0-51.0); %Neutrophils 38.4 % (42.0-75.0); MDiff Complete? YES; Macrocytosis SLIGHT = 6-15 cells (100X) (0-5/hpf)
[2017-10-31] MEDS ORDERED: Albuterol Sulfate 2.5 mg/3 ml Neb ONE (02:57)
[2017-10-31 03:20] LABS: Amphetamine Not Detected (NotDetected); Barbiturates Screen Not Detected (NotDetected); Benzodiazepine Screen Not Detected (NotDetected); Cocaine Metabolite Screen Not Detected (NotDetected); Medtox Control Line Valid? VALID (VALID); Medtox Reader # READER 4; Methadone Not Detected (NotDetected); Methamphetamine Not Detected (NotDetected); Opiate Screen Not Detected (NotDetected); Oxycodone Screen Not Detected (NotDetected); Phencyclidine (PCP) Not Detected (NotDetected); THC/Cannabinoid Screen Not Detected (NotDetected); Tricyclic Screen Not Detected (NotDetected)
== END 2017-10-31 03:45 | disposition home or self-care (01) ==
LOC: ERS 00:24
DX: F32.9 Major depressive disorder, single episode, unspecified (principal); F10.129 Alcohol abuse with intoxication, unspecified; Y90.8 Blood alcohol level of 240 mg/100 ml or more; I25.2 Old myocardial infarction; I25.10 Atherosclerotic heart disease of native coronary artery without angina pectoris; I10 Essential (primary) hypertension; J44.9 Chronic obstructive pulmonary disease, unspecified; G20 Parkinson's disease; F31.9 Bipolar disorder, unspecified; Z87.891 Personal history of nicotine dependence; Z79.899 Other long term (current) drug therapy; Z79.82 Long term (current) use of aspirin
CPT/HCPCS: 36415; 80053; 80306; 80307; 85025; 94640; J7611

== ENCOUNTER 2017-11-01 19:48 | Emergency (ER) | payer MEDICARE, MEDICAID ==
[2017-11-01] MEDS ORDERED: Lorazepam 2 MG/ML VIAL ONE (20:35)
[2017-11-01 20:36] LABS: #Basophils 0.1 thou/uL (0.0-0.2); #Eosinphils 0.9 thou/uL (0.0-0.7); #Lymphocytes 2.1 thou/uL (1.20-3.40); #Monocytes 0.6 thou/uL (0.11-0.59); #Neutrophils 3.4 thou/uL (1.40-6.50); %Basophils 2.1 % (0.0-1.0); %Eosinophils 12.8 % (0.0-10.0); %Monocytes 8.1 % (0.0-10.0); %Neutrophils 48.1 % (42.0-75.0); Hemoglobin 15.6 g/dL (14.0-18.0); Mean Corpuscular HGB CONC 34.5 g/dL (32.0-36.0); Mean Corpuscular Hemoglobin 35.9 pg (27.0-31.0); Mean Platelet Volume 6.7 fL (7.4-10.4); Platelet Count 207 thou/uL (130-400); RBC Distribution Width 12.4 % (11.5-14.5); Red Blood Cell (RBC) Count 4.34 mill/uL (4.70-6.10); White Blood Cell (WBC) Count 7.1 thou/uL (4.8-10.8)
[2017-11-01 20:56] LABS: ALT (SGPT) 41 U/L (8-55); AST (SGOT) 42 U/L (5-34); Albumin 4.4 g/dL (3.4-4.8); Alkaline Phosphatase 86 U/L (40-150); Anion Gap 16 mmol/L (10-20); BUN (Urea Nitrogen) 7 mg/dL (8.4-25.7); Bilirubin, Total 0.5 mg/dL (0.2-1.2); Calc. Creatinine Clearance 0 mL/min (70-130); Calcium 9.3 mg/dL (7.8-10.44); Carbon Dioxide 22 mmol/L (23-31); Chloride 107 mmol/L (98-107); Estimated GFR-MDRD 90; Globulin 2.7 g/dL (2.4-3.5); Glucose 112 mg/dL (80-115); Potassium 4.4 mmol/L (3.5-5.1); Protein, Total 7.1 g/dL (5.8-8.1); Sodium 141 mmol/L (136-145)
--- NOTE | 2017-11-01 20:59 | CT ---
CT BRAIN NONCONTRAST: 11/01/17 HISTORY: 67-year-old male with altered mental status. FINDINGS: There is no midline shift or any other mass effect. There is no evidence of acute intracranial hemor rhage, large cortical infarct, obstructive hydrocephalus, or extraaxial fluid collection. The calvar ium is intact. There is diffuse parenchymal volume loss. There are low attenuation areas in the whi te matter. These are nonspecific, but in a patient of this age, they are probably chronic ischemic w mando matter changes due to microvascular atherosclerosis. IMPRESSION: 1) No acute intracranial findings. 2) Involutional changes and mild chronic ischemic white matter changes. esme vogel POS: [facility]
[2017-11-01 21:01] LABS: CKMB 4.3 ng/mL (0-6.6); Troponin I Less than 0.010 ng/mL (< 0.028)
== END 2017-11-01 22:42 | disposition home or self-care (01) ==
LOC: ERS 19:48
DX: F32.9 Major depressive disorder, single episode, unspecified (principal); R53.1 Weakness; I25.2 Old myocardial infarction; I25.10 Atherosclerotic heart disease of native coronary artery without angina pectoris; J44.9 Chronic obstructive pulmonary disease, unspecified; G20 Parkinson's disease; I10 Essential (primary) hypertension; Z79.82 Long term (current) use of aspirin; Z79.899 Other long term (current) drug therapy
CPT/HCPCS: 36415; 70450; 80053; 82140; 82553; 83880; 84484; 85025; 94640; 96361; 96374; J2060; J7620

== ENCOUNTER 2017-11-02 12:22 | Emergency (ER) | payer MEDICARE, MEDICAID ==
[2017-11-02 13:58] LABS: Hemoglobin 15.6 g/dL (14.0-18.0); Mean Corpuscular HGB CONC 32.4 g/dL (32.0-36.0); Mean Corpuscular Hemoglobin 34.9 pg (27.0-31.0); Mean Platelet Volume 7.4 fL (7.4-10.4); Platelet Count 206 thou/uL (130-400); RBC Distribution Width 12.5 % (11.5-14.5); Red Blood Cell (RBC) Count 4.47 mill/uL (4.70-6.10); White Blood Cell (WBC) Count 7.1 thou/uL (4.8-10.8)
[2017-11-02 14:05] LABS: PTT 26.1 SEC (22.9-36.1); Prothrombin Time 12.9 SEC (12.0-14.7)
[2017-11-02 14:12] LABS: ALT (SGPT) 40 U/L (8-55); AST (SGOT) 40 U/L (5-34); Albumin 4.3 g/dL (3.4-4.8); Alkaline Phosphatase 84 U/L (40-150); Anion Gap 18 mmol/L (10-20); BUN (Urea Nitrogen) 6 mg/dL (8.4-25.7); Bilirubin, Total 0.6 mg/dL (0.2-1.2); CK (CPK) 259 U/L (30-200); Calc. Creatinine Clearance 0 mL/min (70-130); Calcium 9.2 mg/dL (7.8-10.44); Carbon Dioxide 17 mmol/L (23-31); Chloride 110 mmol/L (98-107); Estimated GFR-MDRD Greater than 90; Globulin 2.7 g/dL (2.4-3.5); Glucose 141 mg/dL (80-115); Potassium 4.4 mmol/L (3.5-5.1); Sodium 141 mmol/L (136-145)
[2017-11-02 14:19] LABS: Eosinophils 10 % (0-10); Lymphocytes 40 % (21-51); MDiff Complete? YES; Macrocytosis SLIGHT = 6-15 cells (100X) (0-5/hpf); Monocytes 12 % (0-10); Neutrophil 35 % (42-75); PLT Morphology Comment Appears Adequate
== END 2017-11-02 15:21 | disposition home or self-care (01) ==
LOC: ERS 12:22
DX: F32.9 Major depressive disorder, single episode, unspecified (principal); F10.10 Alcohol abuse, uncomplicated; I25.2 Old myocardial infarction; I25.10 Atherosclerotic heart disease of native coronary artery without angina pectoris; I10 Essential (primary) hypertension; J44.9 Chronic obstructive pulmonary disease, unspecified; G20 Parkinson's disease; Z87.891 Personal history of nicotine dependence; Z79.82 Long term (current) use of aspirin; Z79.899 Other long term (current) drug therapy
CPT/HCPCS: 36415; 80053; 82550; 85025; 85610; 85730; 94640; J7620

== ENCOUNTER 2017-11-05 01:16 | Emergency (ER) | payer MEDICARE, MEDICAID | END 2017-11-05 03:34 | disposition home or self-care (01) | LOC: ERS 01:16 | DX: F10.10 Alcohol abuse, uncomplicated (principal); I25.10 Atherosclerotic heart disease of native coronary artery without angina pectoris; J44.9 Chronic obstructive pulmonary disease, unspecified; G20 Parkinson's disease; F31.9 Bipolar disorder, unspecified; I25.2 Old myocardial infarction; Z79.82 Long term (current) use of aspirin; Z79.899 Other long term (current) drug therapy | CPT/HCPCS: 94640; J7620 ==

== ENCOUNTER 2017-11-05 22:13 | Emergency (ER) | payer MEDICARE, MEDICAID ==
[2017-11-06 00:13] LABS: #Basophils 0.1 thou/uL (0.0-0.2); #Eosinphils 0.7 thou/uL (0.0-0.7); #Lymphocytes 2.3 thou/uL (1.20-3.40); #Monocytes 0.5 thou/uL (0.11-0.59); #Neutrophils 2.9 thou/uL (1.40-6.50); %Basophils 1.5 % (0.0-1.0); %Eosinophils 10.6 % (0.0-10.0); %Lymphocytes 35.3 % (21.0-51.0); %Monocytes 7.3 % (0.0-10.0); %Neutrophils 45.2 % (42.0-75.0); Hemoglobin 14.6 g/dL (14.0-18.0); Mean Corpuscular HGB CONC 34.2 g/dL (32.0-36.0); Mean Corpuscular Hemoglobin 35.9 pg (27.0-31.0); Mean Platelet Volume 6.9 fL (7.4-10.4); Platelet Count 163 thou/uL (130-400); RBC Distribution Width 12.4 % (11.5-14.5); Red Blood Cell (RBC) Count 4.08 mill/uL (4.70-6.10); White Blood Cell (WBC) Count 6.4 thou/uL (4.8-10.8)
[2017-11-06 00:20] LABS: ALT (SGPT) 30 U/L (8-55); AST (SGOT) 41 U/L (5-34); Alkaline Phosphatase 73 U/L (40-150); Anion Gap 17 mmol/L (10-20); BUN (Urea Nitrogen) 16 mg/dL (8.4-25.7); Bilirubin, Total 0.7 mg/dL (0.2-1.2); Calc. Creatinine Clearance 0 mL/min (70-130); Calcium 9.1 mg/dL (7.8-10.44); Carbon Dioxide 20 mmol/L (23-31); Chloride 109 mmol/L (98-107); Estimated GFR-MDRD Greater than 90; Globulin 2.5 g/dL (2.4-3.5); Glucose 125 mg/dL (80-115); Magnesium 1.9 mg/dL (1.6-2.6); Potassium 4.3 mmol/L (3.5-5.1); Protein, Total 6.5 g/dL (5.8-8.1); Sodium 142 mmol/L (136-145)
[2017-11-06] MEDS ORDERED: Diazepam 5 MG TAB ONE (00:23)
--- NOTE | 2017-11-06 00:31 | RAD ---
CHEST ONE VIEW: HISTORY: Shortness of breath. COMPARISON: 10/02/2017 FINDINGS: Normal cardiac silhouette. Pulmonary vessels and hilum are normal. Costophrenic angles are clear. No masses or consolidation. Stable emphysematous changes, predominantly in the right upper lobe. Th ere is no pneumothorax or osseous abnormalities. IMPRESSION: Stable emphysematous changes. No acute cardiopulmonary process. POS: [facility]
[2017-11-06] MEDS ORDERED: Lorazepam 2 MG/ML VIAL ONE (01:40)
== END 2017-11-06 02:31 | disposition home or self-care (01) ==
LOC: ERS 22:13
DX: F41.9 Anxiety disorder, unspecified (principal); R21 Rash and other nonspecific skin eruption; I25.2 Old myocardial infarction; I25.10 Atherosclerotic heart disease of native coronary artery without angina pectoris; I10 Essential (primary) hypertension; G20 Parkinson's disease; J44.9 Chronic obstructive pulmonary disease, unspecified; F31.9 Bipolar disorder, unspecified; Z87.891 Personal history of nicotine dependence; Z79.899 Other long term (current) drug therapy; Z79.82 Long term (current) use of aspirin
CPT/HCPCS: 36415; 71045; 80053; 83735; 84443; 85025; 93005; 94640; 96372; J2060; J7620

== ENCOUNTER 2017-11-08 01:07 | Emergency (ER) | payer MEDICARE, MEDICAID ==
[2017-11-08 02:12] LABS: #Basophils 0.1 thou/uL (0.0-0.2); #Eosinphils 0.8 thou/uL (0.0-0.7); #Lymphocytes 2.1 thou/uL (1.20-3.40); #Monocytes 0.6 thou/uL (0.11-0.59); #Neutrophils 3.6 thou/uL (1.40-6.50); %Basophils 1.4 % (0.0-1.0); %Eosinophils 11.2 % (0.0-10.0); %Lymphocytes 29.1 % (21.0-51.0); %Monocytes 8.4 % (0.0-10.0); %Neutrophils 49.9 % (42.0-75.0); Hemoglobin 14.4 g/dL (14.0-18.0); Mean Corpuscular HGB CONC 32.5 g/dL (32.0-36.0); Mean Corpuscular Hemoglobin 34.1 pg (27.0-31.0); Mean Platelet Volume 6.8 fL (7.4-10.4); Platelet Count 151 thou/uL (130-400); RBC Distribution Width 12.3 % (11.5-14.5); Red Blood Cell (RBC) Count 4.23 mill/uL (4.70-6.10); White Blood Cell (WBC) Count 7.2 thou/uL (4.8-10.8)
[2017-11-08 02:33] LABS: ALT (SGPT) 44 U/L (8-55); AST (SGOT) 66 U/L (5-34); Acetaminophen Less than 6.0 mcg/mL (10.0-30.0); Albumin 4.3 g/dL (3.4-4.8); Alcohol 260 mg/dL (Less than 10); Alkaline Phosphatase 72 U/L (40-150); Anion Gap 14 mmol/L (10-20); BUN (Urea Nitrogen) 19 mg/dL (8.4-25.7); Bilirubin, Total 0.6 mg/dL (0.2-1.2); Calc. Creatinine Clearance 0 mL/min (70-130); Calcium 9.8 mg/dL (7.8-10.44); Carbon Dioxide 23 mmol/L (23-31); Chloride 109 mmol/L (98-107); Estimated GFR-MDRD Greater than 90; Globulin 2.5 g/dL (2.4-3.5); Glucose 136 mg/dL (80-115); Potassium 4.3 mmol/L (3.5-5.1); Protein, Total 6.8 g/dL (5.8-8.1); Salicylate Less than 8.0 mg/dL (15.0-30.0); Sodium 142 mmol/L (136-145)
== END 2017-11-08 02:53 | disposition left against medical advice (07) ==
LOC: ERS 01:07
DX: F32.9 Major depressive disorder, single episode, unspecified (principal); I25.2 Old myocardial infarction; I10 Essential (primary) hypertension; J44.9 Chronic obstructive pulmonary disease, unspecified; I25.10 Atherosclerotic heart disease of native coronary artery without angina pectoris; G20 Parkinson's disease; Z79.899 Other long term (current) drug therapy; Z79.82 Long term (current) use of aspirin
CPT/HCPCS: 36415; 80053; 80307; 82550; 84443; 85025; 99284

== ENCOUNTER 2017-11-09 00:45 | Emergency (ER) | payer MEDICARE, MEDICAID | END 2017-11-09 02:00 | disposition home or self-care (01) | LOC: ERS 00:45 | DX: F41.9 Anxiety disorder, unspecified (principal); F10.10 Alcohol abuse, uncomplicated; I10 Essential (primary) hypertension; J44.9 Chronic obstructive pulmonary disease, unspecified; F31.9 Bipolar disorder, unspecified; G20 Parkinson's disease; Z79.82 Long term (current) use of aspirin; Z79.899 Other long term (current) drug therapy; Z87.891 Personal history of nicotine dependence | CPT/HCPCS: 99284 ==

== ENCOUNTER 2017-11-10 21:29 | Emergency (ER) | payer OTHER | END 2017-11-10 23:43 | disposition home or self-care (01) | LOC: ERS 21:29 | DX: F41.9 Anxiety disorder, unspecified (principal); F10.10 Alcohol abuse, uncomplicated; I25.2 Old myocardial infarction; I10 Essential (primary) hypertension; J44.9 Chronic obstructive pulmonary disease, unspecified; F31.9 Bipolar disorder, unspecified; Z79.82 Long term (current) use of aspirin; Z79.899 Other long term (current) drug therapy | CPT/HCPCS: 99283 ==

== ENCOUNTER 2017-11-13 05:27 | Emergency (ER) | payer MEDICARE, MEDICAID | END 2017-11-13 07:20 | disposition left against medical advice (07) | LOC: ERS 05:27 | DX: Z53.21 Procedure and treatment not carried out due to patient leaving prior to being seen by health care provider (principal) ==

== ENCOUNTER 2017-11-24 08:52 | Emergency (ER) | payer MEDICARE, OTHER ==
--- NOTE | 2017-11-24 09:35 | RAD ---
TWO AP VIEWS OF THE CHEST: INDICATION: Chest pain. COMPARISON: Prior exam dated 11/05/17. FINDINGS: Stable elevation of the left hemidiaphragm. No airspace opacity is evident. No pleural effusion or pneumothorax is noted. Heart size is within normal limits. No acute osseous abnormality is evident. IMPRESSION: No acute abnormality. POS: [facility]
[2017-11-24 09:43] LABS: #Basophils 0.1 thou/uL (0.0-0.2); #Eosinphils 0.8 thou/uL (0.0-0.7); #Lymphocytes 2.2 thou/uL (1.20-3.40); #Monocytes 0.5 thou/uL (0.11-0.59); #Neutrophils 2.1 thou/uL (1.40-6.50); %Basophils 2.5 % (0.0-1.0); %Eosinophils 14.4 % (0.0-10.0); %Lymphocytes 38.3 % (21.0-51.0); %Monocytes 8.5 % (0.0-10.0); %Neutrophils 36.3 % (42.0-75.0); Hemoglobin 15.3 g/dL (14.0-18.0); Mean Corpuscular HGB CONC 33.9 g/dL (32.0-36.0); Mean Corpuscular Hemoglobin 36.1 pg (27.0-31.0); Mean Platelet Volume 6.2 fL (7.4-10.4); Platelet Count 268 thou/uL (130-400); RBC Distribution Width 13.2 % (11.5-14.5); Red Blood Cell (RBC) Count 4.25 mill/uL (4.70-6.10); White Blood Cell (WBC) Count 5.8 thou/uL (4.8-10.8)
[2017-11-24 10:04] LABS: ALT (SGPT) 50 U/L (8-55); AST (SGOT) 46 U/L (5-34); Albumin 4.3 g/dL (3.4-4.8); Alkaline Phosphatase 73 U/L (40-150); Anion Gap 19 mmol/L (10-20); BUN (Urea Nitrogen) 12 mg/dL (8.4-25.7); Bilirubin, Total 0.5 mg/dL (0.2-1.2); CK (CPK) 261 U/L (30-200); Calc. Creatinine Clearance 0 mL/min (70-130); Calcium 9.5 mg/dL (7.8-10.44); Carbon Dioxide 21 mmol/L (23-31); Chloride 105 mmol/L (98-107); Estimated GFR-MDRD Greater than 90; Globulin 2.6 g/dL (2.4-3.5); Glucose 146 mg/dL (80-115); Lipase 26 U/L (8-78); Potassium 4.3 mmol/L (3.5-5.1); Protein, Total 6.9 g/dL (5.8-8.1); Sodium 141 mmol/L (136-145)
[2017-11-24 10:06] LABS: CKMB 5.3 ng/mL (0-6.6); Troponin I Less than 0.010 ng/mL (< 0.028)
== END 2017-11-24 10:26 | disposition home or self-care (01) ==
LOC: ERS 08:52
DX: R07.9 Chest pain, unspecified (principal); F10.10 Alcohol abuse, uncomplicated; I25.2 Old myocardial infarction; I25.10 Atherosclerotic heart disease of native coronary artery without angina pectoris; J44.9 Chronic obstructive pulmonary disease, unspecified; G20 Parkinson's disease; F31.9 Bipolar disorder, unspecified; Z79.82 Long term (current) use of aspirin; Z79.899 Other long term (current) drug therapy
CPT/HCPCS: 36415; 71045; 80053; 82550; 82553; 83690; 83880; 84484; 85025; 93005; 94640; J7620

== ENCOUNTER 2017-11-24 17:13 | Emergency (ER) | payer MEDICARE, OTHER ==
[2017-11-24] MEDS ORDERED: chlordiazePOXIDE HCl 25 MG CAP ONE (18:06)
[2017-11-24] MEDS ORDERED: Thiamine HCl 200 MG/2 ML VIAL IM SCH (18:30)
== END 2017-11-24 20:11 | disposition home or self-care (01) ==
LOC: ERS 17:13
DX: E63.9 Nutritional deficiency, unspecified (principal); I25.2 Old myocardial infarction; I25.10 Atherosclerotic heart disease of native coronary artery without angina pectoris; I10 Essential (primary) hypertension; J45.909 Unspecified asthma, uncomplicated; G20 Parkinson's disease; J44.9 Chronic obstructive pulmonary disease, unspecified; F31.9 Bipolar disorder, unspecified; Z87.891 Personal history of nicotine dependence; Z85.46 Personal history of malignant neoplasm of prostate; Z79.82 Long term (current) use of aspirin; Z79.899 Other long term (current) drug therapy
CPT/HCPCS: 36415; 71045; 80053; 82550; 82553; 83690; 83880; 84484; 85025; 93005; 94640; 94760; 96372; J3411; J7620

== ENCOUNTER 2017-11-25 02:38 | Emergency (ER) | payer MEDICARE, OTHER ==
[2017-11-25 03:43] LABS: #Basophils 0.2 thou/uL (0.0-0.2); #Eosinphils 0.9 thou/uL (0.0-0.7); #Lymphocytes 2.5 thou/uL (1.20-3.40); #Monocytes 0.6 thou/uL (0.11-0.59); #Neutrophils 2.5 thou/uL (1.40-6.50); %Basophils 2.3 % (0.0-1.0); %Eosinophils 13.3 % (0.0-10.0); %Lymphocytes 37.6 % (21.0-51.0); %Monocytes 8.9 % (0.0-10.0); Mean Corpuscular HGB CONC 34.1 g/dL (32.0-36.0); Mean Corpuscular Hemoglobin 36.1 pg (27.0-31.0); Mean Platelet Volume 6.2 fL (7.4-10.4); Platelet Count 255 thou/uL (130-400); RBC Distribution Width 13.3 % (11.5-14.5); Red Blood Cell (RBC) Count 4.15 mill/uL (4.70-6.10); White Blood Cell (WBC) Count 6.7 thou/uL (4.8-10.8)
[2017-11-25 04:10] LABS: ALT (SGPT) 52 U/L (8-55); AST (SGOT) 66 U/L (5-34); Albumin 4.3 g/dL (3.4-4.8); Alkaline Phosphatase 70 U/L (40-150); Anion Gap 21 mmol/L (10-20); BUN (Urea Nitrogen) 12 mg/dL (8.4-25.7); Bilirubin, Total 0.5 mg/dL (0.2-1.2); Calc. Creatinine Clearance 0 mL/min (70-130); Calcium 9.3 mg/dL (7.8-10.44); Carbon Dioxide 19 mmol/L (23-31); Chloride 106 mmol/L (98-107); Estimated GFR-MDRD 89; Globulin 2.7 g/dL (2.4-3.5); Glucose 121 mg/dL (80-115); Magnesium 2.5 mg/dL (1.6-2.6); Potassium 4.3 mmol/L (3.5-5.1); Sodium 142 mmol/L (136-145)
== END 2017-11-25 04:28 | disposition home or self-care (01) ==
LOC: ERS 02:38
DX: F10.10 Alcohol abuse, uncomplicated (principal); I25.2 Old myocardial infarction; I25.10 Atherosclerotic heart disease of native coronary artery without angina pectoris; I10 Essential (primary) hypertension; J44.9 Chronic obstructive pulmonary disease, unspecified; G20 Parkinson's disease; F31.9 Bipolar disorder, unspecified; Z79.899 Other long term (current) drug therapy; Z79.82 Long term (current) use of aspirin
CPT/HCPCS: 36415; 80053; 83735; 85025; 93005

== ENCOUNTER 2017-11-25 13:58 | Emergency (ER) | payer MEDICARE, OTHER ==
[2017-11-25] MEDS ORDERED: Multivitamins, Adult 10 ML, Thiamine HCl 100 MG, Folic Acid 1 MG in Dextrose 5 %-0.45 %... IV ONE (14:30)
[2017-11-25 14:43] LABS: #Basophils 0.2 thou/uL (0.0-0.2); #Eosinphils 0.8 thou/uL (0.0-0.7); #Lymphocytes 2.2 thou/uL (1.20-3.40); #Monocytes 0.6 thou/uL (0.11-0.59); #Neutrophils 2.8 thou/uL (1.40-6.50); %Basophils 2.5 % (0.0-1.0); %Eosinophils 11.8 % (0.0-10.0); %Lymphocytes 33.4 % (21.0-51.0); %Monocytes 9.6 % (0.0-10.0); %Neutrophils 42.7 % (42.0-75.0); Hemoglobin 14.7 g/dL (14.0-18.0); Mean Corpuscular Hemoglobin 36.2 pg (27.0-31.0); Mean Platelet Volume 6.7 fL (7.4-10.4); Platelet Count 249 thou/uL (130-400); RBC Distribution Width 13.4 % (11.5-14.5); Red Blood Cell (RBC) Count 4.05 mill/uL (4.70-6.10); White Blood Cell (WBC) Count 6.6 thou/uL (4.8-10.8)
[2017-11-25 15:01] LABS: Bilirubin Negative (Negative); Blood, Urine Trace (Negative); Clarity CLEAR (Clear); Glucose, Urine (Dipstick) Negative (Negative); Leukocyte Negative (Negative); Nitrite Negative (Negative); Protein, Urine (Dipstick) Negative (Neg-Trace); Specific Gravity, Urine 1.007 (1.002-1.036); Urobilinogen 0.2 mg/dL (0.2-1.0); pH, Urine 5.5 (5.0-9.0)
[2017-11-25 15:03] LABS: Bacteria/HPF None Seen HPF (None Seen); Hyaline Casts/LPF 0-3 HYALINE CAST LPF (0-3 Hyaline); Pathc Cast-AUWi Flag 0.14 (0-2.49); RBC/HPF None Seen HPF (0-3); Squamous Epithelial None Seen HPF (0-3); WBC/HPF None Seen HPF (0-3)
[2017-11-25 15:04] LABS: Acetaminophen Less than 6.0 mcg/mL (10.0-30.0); Alcohol 327 mg/dL (Less than 10); Salicylate Less than 8.0 mg/dL (15.0-30.0)
[2017-11-25 15:09] LABS: Troponin I Less than 0.010 ng/mL (< 0.028)
[2017-11-25 15:13] LABS: Amphetamine Not Detected (NotDetected); Barbiturates Screen Not Detected (NotDetected); Benzodiazepine Screen Not Detected (NotDetected); Cocaine Metabolite Screen Not Detected (NotDetected); Medtox Control Line Valid? VALID (VALID); Medtox Reader # READER 1; Methadone Not Detected (NotDetected); Methamphetamine Not Detected (NotDetected); Opiate Screen Not Detected (NotDetected); Oxycodone Screen Not Detected (NotDetected); Phencyclidine (PCP) Not Detected (NotDetected); THC/Cannabinoid Screen Not Detected (NotDetected); Tricyclic Screen Not Detected (NotDetected)
--- NOTE | 2017-11-25 15:32 | RAD ---
AP VIEW OF THE CHEST: INDICATION: Altered mental status. FINDINGS/IMPRESSION: No acute cardiopulmonary abnormality. Chronic lung changes are stable to a comparison dated 11/24/17. POS: [facility]
[2017-11-25 15:46] LABS: ALT (SGPT) 54 U/L (8-55); AST (SGOT) 68 U/L (5-34); Albumin 4.4 g/dL (3.4-4.8); Alkaline Phosphatase 75 U/L (40-150); Anion Gap 20 mmol/L (10-20); BUN (Urea Nitrogen) 12 mg/dL (8.4-25.7); Bilirubin, Total 0.6 mg/dL (0.2-1.2); CK (CPK) 452 U/L (30-200); Calc. Creatinine Clearance 0 mL/min (70-130); Calcium 9.1 mg/dL (7.8-10.44); Carbon Dioxide 22 mmol/L (23-31); Chloride 105 mmol/L (98-107); Estimated GFR-MDRD 87; Globulin 2.6 g/dL (2.4-3.5); Glucose 152 mg/dL (80-115); Lipase 25 U/L (8-78); Potassium 4.8 mmol/L (3.5-5.1); Sodium 142 mmol/L (136-145)
== END 2017-11-25 22:04 | disposition home or self-care (01) ==
LOC: ERS 13:58
DX: F10.129 Alcohol abuse with intoxication, unspecified (principal); I25.2 Old myocardial infarction; I10 Essential (primary) hypertension; F31.9 Bipolar disorder, unspecified; Z79.82 Long term (current) use of aspirin; Z79.899 Other long term (current) drug therapy
CPT/HCPCS: 36415; 71045; 80053; 80306; 80307; 81003; 81015; 82553; 83690; 83735; 83880; 84443; 84484; 85025; 93005; 94640; 96365; 96366; J3411; J7042; J7620

== ENCOUNTER 2017-12-01 00:52 | Emergency (ER) | payer MEDICARE, MEDICAID ==
[2017-12-01 02:08] LABS: #Basophils 0.1 thou/uL (0.0-0.2); #Eosinphils 0.8 thou/uL (0.0-0.7); #Monocytes 0.9 thou/uL (0.11-0.59); #Neutrophils 4.1 thou/uL (1.40-6.50); %Basophils 1.5 % (0.0-1.0); %Eosinophils 10.1 % (0.0-10.0); %Lymphocytes 24.9 % (21.0-51.0); %Monocytes 11.4 % (0.0-10.0); %Neutrophils 52.2 % (42.0-75.0); Hemoglobin 13.9 g/dL (14.0-18.0); Mean Corpuscular HGB CONC 33.7 g/dL (32.0-36.0); Mean Corpuscular Hemoglobin 36.1 pg (27.0-31.0); Mean Platelet Volume 6.7 fL (7.4-10.4); Platelet Count 185 thou/uL (130-400); Red Blood Cell (RBC) Count 3.86 mill/uL (4.70-6.10); White Blood Cell (WBC) Count 7.9 thou/uL (4.8-10.8)
[2017-12-01 02:31] LABS: ALT (SGPT) 43 U/L (8-55); AST (SGOT) 38 U/L (5-34); Acetaminophen Less than 6.0 mcg/mL (10.0-30.0); Alcohol 155 mg/dL (Less than 10); Alkaline Phosphatase 64 U/L (40-150); Anion Gap 13 mmol/L (10-20); BUN (Urea Nitrogen) 10 mg/dL (8.4-25.7); Bilirubin, Total 0.6 mg/dL (0.2-1.2); CK (CPK) 63 U/L (30-200); Calc. Creatinine Clearance 0 mL/min (70-130); Calcium 9.6 mg/dL (7.8-10.44); Carbon Dioxide 22 mmol/L (23-31); Chloride 108 mmol/L (98-107); Estimated GFR-MDRD 73; Globulin 2.4 g/dL (2.4-3.5); Glucose 109 mg/dL (80-115); Protein, Total 6.4 g/dL (5.8-8.1); Salicylate Less than 8.0 mg/dL (15.0-30.0); Sodium 139 mmol/L (136-145)
[2017-12-01 05:43] LABS: Bilirubin Negative (Negative); Blood, Urine Negative (Negative); Clarity CLEAR (Clear); Glucose, Urine (Dipstick) Negative (Negative); Leukocyte Negative (Negative); Nitrite Negative (Negative); Protein, Urine (Dipstick) Negative (Neg-Trace); Specific Gravity, Urine 1.004 (1.002-1.036); Urobilinogen 0.2 mg/dL (0.2-1.0)
[2017-12-01 05:54] LABS: Benzodiazepine Screen Detected (NotDetected); Medtox Control Line Valid? VALID (VALID); Medtox Reader # READER 1; Phencyclidine (PCP) Not Detected (NotDetected); THC/Cannabinoid Screen Not Detected (NotDetected)
[2017-12-01 05:55] LABS: Amphetamine Not Detected (NotDetected); Barbiturates Screen Not Detected (NotDetected); Cocaine Metabolite Screen Not Detected (NotDetected); Methadone Not Detected (NotDetected); Methamphetamine Not Detected (NotDetected); Opiate Screen Not Detected (NotDetected); Oxycodone Screen Not Detected (NotDetected); Tricyclic Screen Not Detected (NotDetected)
== END 2017-12-01 08:50 | disposition home or self-care (01) ==
LOC: ERS 00:52
DX: F10.10 Alcohol abuse, uncomplicated (principal); F43.20 Adjustment disorder, unspecified; G20 Parkinson's disease; I25.2 Old myocardial infarction; I25.10 Atherosclerotic heart disease of native coronary artery without angina pectoris; I10 Essential (primary) hypertension; J44.9 Chronic obstructive pulmonary disease, unspecified; F31.9 Bipolar disorder, unspecified; Z87.891 Personal history of nicotine dependence; Z79.899 Other long term (current) drug therapy; Z79.82 Long term (current) use of aspirin
CPT/HCPCS: 36415; 80053; 80306; 80307; 81003; 82550; 84443; 85025; 99285

== ENCOUNTER 2017-12-07 02:28 | Emergency (ER) | payer MEDICARE, MEDICAID ==
[2017-12-07] MEDS ORDERED: predniSONE 20 MG TAB ONE (03:51)
[2017-12-07 04:31] LABS: #Basophils 0.2 thou/uL (0.0-0.2); #Eosinphils 0.9 thou/uL (0.0-0.7); #Lymphocytes 3.7 thou/uL (1.20-3.40); #Monocytes 0.8 thou/uL (0.11-0.59); #Neutrophils 2.7 thou/uL (1.40-6.50); %Basophils 2.3 % (0.0-1.0); %Eosinophils 10.6 % (0.0-10.0); %Lymphocytes 44.9 % (21.0-51.0); %Neutrophils 32.2 % (42.0-75.0); Hemoglobin 15.2 g/dL (14.0-18.0); Mean Corpuscular Hemoglobin 36.4 pg (27.0-31.0); Platelet Count 290 thou/uL (130-400); Red Blood Cell (RBC) Count 4.17 mill/uL (4.70-6.10); White Blood Cell (WBC) Count 8.3 thou/uL (4.8-10.8)
[2017-12-07 04:45] LABS: ALT (SGPT) 45 U/L (8-55); AST (SGOT) 46 U/L (5-34); Albumin 4.2 g/dL (3.4-4.8); Alkaline Phosphatase 78 U/L (40-150); Anion Gap 17 mmol/L (10-20); BUN (Urea Nitrogen) 6 mg/dL (8.4-25.7); Bilirubin, Total 0.4 mg/dL (0.2-1.2); Calc. Creatinine Clearance 0 mL/min (70-130); Calcium 9.5 mg/dL (7.8-10.44); Carbon Dioxide 21 mmol/L (23-31); Chloride 108 mmol/L (98-107); Estimated GFR-MDRD 87; Globulin 2.6 g/dL (2.4-3.5); Glucose 103 mg/dL (80-115); Potassium 4.3 mmol/L (3.5-5.1); Protein, Total 6.8 g/dL (5.8-8.1); Sodium 142 mmol/L (136-145)
[2017-12-07 04:49] LABS: CKMB 2.6 ng/mL (0-6.6); Troponin I Less than 0.010 ng/mL (< 0.028)
--- NOTE | 2017-12-07 09:02 | RAD ---
CHEST ONE VIEW: Comparison: 11-25-17 History: Cough. FINDINGS: Normal cardiac silhouette. The pulmonary vessels and hilum are normal. Costophrenic angles are clear. Chronic changes in the left lung base. No consolidation or mass. No pneumothorax or osseous abnormal ities. IMPRESSION: No acute cardiopulmonary process. POS: C
--- NOTE | 2017-12-07 09:56 | CT ---
PRELIMINARY REPORT/[facility]/EMERGENTY AFTER-HOURS PROCEDURE CT Cervical Spine Without Intravenous Contrast CLINICAL HISTORY: 67 years old, male; Injury or trauma; Fall; Initial encounter; Abrasion; Patient HX: Er 5; Fall; Pt a rrives via ems. Ems reports pt "had a couple of bottles of wine and fell in his kitchen on his back. " pt reports that he is on plavix. TECHNIQUE: Axial computed tomography images of the cervical spine without intravenous contrast. Coronal and sagittal reformatted images were created and reviewed. COMPARISON: No relevant prior studies available. FINDINGS: Vertebrae: Straightening of normal cervical spine lordosis, likely secondary to degenerative changes and/or muscular spasm. Discs/spinal canal/neural foramina: Multilevel degenerative disc disease, worst at the C5-6 level, wh ere there is moderate disc space narrowing and osteophyte formation. Multilevel bilateral facet and u ncovertebral arthropathy. Degenerative changes of the atlantoaxial articulation. Bilateral C5-6 neura l foraminal narrowing. Soft tissues: Normal. Lung apices: Normal as visualized. IMPRESSION: 1. No acute findings. 2. Non-acute findings are described above. Thank you for allowing us to participate in the care of your patient. Dictated and Authenticated by: Pepe Delong MD 12/07/2017 3:34 AM Central Time ([place] & [place]) CT CERVICAL SPINE NONCONTRAST: I agree with the preliminary interpretation provided above. No acute fracture or subluxation of the cervical spine. POS: [facility]
--- NOTE | 2017-12-07 09:58 | CT ---
PRELIMINARY REPORT/[facility]/EMERGENTY AFTER-HOURS PROCEDURE CT Head Without Intravenous Contrast CLINICAL HISTORY: 67 years old, male; Injury or trauma; Fall; Initial encounter; Abrasion; Not specified; Patient HX: E r 5; Fall; Pt arrives via ems. Ems reports pt "had a couple of bottles of wine and fell in his kitche n on his back. " pt reports that he is on plavix. TECHNIQUE: Axial computed tomography images of the head/brain without intravenous contrast. COMPARISON: No relevant prior studies available. FINDINGS: Brain: Normal. Ventricles: Normal. Bones/joints: Normal. No acute fracture. Soft tissues: Normal. Vasculature: Atherosclerotic vascular calcifications. Sinuses: Ethmoid and right sphenoid sinus disease. Mastoid air cells: Normal as visualized. No mastoid effusion. IMPRESSION: 1. No acute findings. 2. Non-acute findings are described above. Thank you for allowing us to participate in the care of your patient. Dictated and Authenticated by: Pepe Delong MD 12/07/2017 3:20 AM Central Time ([place] & [place]) CT HEAD NONCONTRAST: I agree with the preliminary interpretation provided above. No acute intracranial hemorrhage or mass effect. Incidental note of scattered paranasal sinus opacification. Correlate clinically. POS: [facility]
== END 2017-12-07 06:28 | disposition home or self-care (01) ==
LOC: ERS 02:28
DX: S09.90XA Unspecified injury of head, initial encounter (principal); I25.10 Atherosclerotic heart disease of native coronary artery without angina pectoris; J44.9 Chronic obstructive pulmonary disease, unspecified; G20 Parkinson's disease; F17.210 Nicotine dependence, cigarettes, uncomplicated; W18.30XA Fall on same level, unspecified, initial encounter
CPT/HCPCS: 36415; 70450; 71045; 72125; 80053; 82553; 84484; 85025; 93005; J7506; J7620

== ENCOUNTER 2017-12-09 19:56 | Inpatient (IN) | payer MEDICARE, MEDICAID ==
[2017-12-09 21:09] LABS: Hemoglobin 15.4 g/dL (14.0-18.0); Mean Corpuscular HGB CONC 34.1 g/dL (32.0-36.0); Mean Corpuscular Hemoglobin 36.6 pg (27.0-31.0); Mean Platelet Volume 6.6 fL (7.4-10.4); Platelet Count 332 thou/uL (130-400); Red Blood Cell (RBC) Count 4.21 mill/uL (4.70-6.10); White Blood Cell (WBC) Count 7.4 thou/uL (4.8-10.8)
[2017-12-09 21:15] LABS: Bilirubin Negative (Negative); Blood, Urine Negative (Negative); Clarity CLEAR (Clear); Glucose, Urine (Dipstick) Negative (Negative); Leukocyte Negative (Negative); Nitrite Negative (Negative); Protein, Urine (Dipstick) Negative (Neg-Trace); Specific Gravity, Urine 1.011 (1.002-1.036); Urobilinogen 0.2 mg/dL (0.2-1.0); pH, Urine 5.5 (5.0-9.0)
[2017-12-09 21:25] LABS: Amphetamine Not Detected (NotDetected); Barbiturates Screen Not Detected (NotDetected); Benzodiazepine Screen Detected (NotDetected); Cocaine Metabolite Screen Not Detected (NotDetected); Medtox Control Line Valid? VALID (VALID); Medtox Reader # READER 1; Methadone Not Detected (NotDetected); Methamphetamine Not Detected (NotDetected); Opiate Screen Not Detected (NotDetected); Oxycodone Screen Not Detected (NotDetected); Phencyclidine (PCP) Not Detected (NotDetected); THC/Cannabinoid Screen Not Detected (NotDetected); Tricyclic Screen Not Detected (NotDetected)
[2017-12-09 21:26] LABS: ALT (SGPT) 44 U/L (8-55); AST (SGOT) 42 U/L (5-34); Acetaminophen Less than 6.0 mcg/mL (10.0-30.0); Albumin 4.2 g/dL (3.4-4.8); Alcohol 207 mg/dL (Less than 10); Alkaline Phosphatase 75 U/L (40-150); Anion Gap 21 mmol/L (10-20); BUN (Urea Nitrogen) 10 mg/dL (8.4-25.7); Bilirubin, Total 0.3 mg/dL (0.2-1.2); CK (CPK) 95 U/L (30-200); Calc. Creatinine Clearance 0 mL/min (70-130); Calcium 8.9 mg/dL (7.8-10.44); Carbon Dioxide 16 mmol/L (23-31); Chloride 110 mmol/L (98-107); Estimated GFR-MDRD 87; Globulin 2.5 g/dL (2.4-3.5); Glucose 175 mg/dL (80-115); Potassium 4.1 mmol/L (3.5-5.1); Protein, Total 6.7 g/dL (5.8-8.1); Salicylate Less than 8.0 mg/dL (15.0-30.0); Sodium 143 mmol/L (136-145)
[2017-12-09 21:35] LABS: Eosinophils 9 % (0-10); Lymphocytes 47 % (21-51); MDiff Complete? YES; Monocytes 7 % (0-10); Neutrophil 36 % (42-75); Reactive Lymphocytes 1 % (0-10)
[2017-12-09] MEDS ORDERED: Multivitamins, Adult 10 ML, Thiamine HCl 100 MG, Folic Acid 1 MG in Dextrose 5 %-0.45 %... IV SCH (22:15)
[2017-12-10] MEDS ORDERED: methylPREDNISolone Sod Succ/PF 125 MG/2 ML VIAL ONE (01:20)
[2017-12-10] MEDS ORDERED: Lorazepam 2 MG/ML VIAL ONE (01:56)
--- NOTE | 2017-12-10 02:56 | PDOC.FPRHP ---
- History of Present Illness Chief Complaint: suicidal ideas/SOB History of Present Illness: Patient is a 67 yo M, PMH significant for bipolar/schizophrenia/depression, COPD , PR X 2 s/p stent placement, prostate cancer, heavy alcohol abuse, and HTN. Patient presented to the ED earlier today with suicidal ideations and was discharged. After discharge, patient was upset that he had been sent home and drank 2 bottles of wine. He is presenting to the ED again with suicidal ideations and threatening to take a whole bottle of lithium. In the ED, the ASE protocol was initiated, patient received 1 mg ativan, duonebs tx, banana bag, and solumedrol. Patient's SI have resolved. He denies hallucinations. Patient has been satting at 86% on 2 L O2. Patient states that SOB is typical for him and that it is normal for him to be satting in the "high 80s." Patient has been depressed due to both children being incarcerated. He is currently not having any SI and feels better. He reports having SI this morning, being depressed with low energy, trouble concentration, and loss of interest. He states that he has been wanting to go to a [facility]" center for some time but that they don't have a bed. Patient denies fever, chills, cough, chest pain, or abdominal pain. ED Course: ASE protocol initiated, 1 mg ativan, DuoNeb tx, banana bag, 125 solumedrol - Allergies/Adverse Reactions Allergies Allergy/AdvReac Type Severity Reaction Status Date / Time No Known Allergies Allergy Verified 06/16/14 15:08 - Home Medications Medication Instructions Recorded Confirmed Type Albuterol Sulfate [Ventolin Hfa] 2 puff INH Q4HR PRN 09/03/17 12/10/17 History Aspirin [Aspirin EC] 81 mg PO HS 09/03/17 12/10/17 History Clopidogrel Bisulfate [Clopidogrel] 75 mg PO HS 09/03/17 12/10/17 History [place] Carbonate 900 mg PO HS 09/03/17 12/10/17 History Metoprolol Tartrate 25 mg PO HS 09/04/17 12/10/17 History Cyanocobalamin (Vitamin B-12) 1,000 mcg PO DAILY #30 tab 10/09/17 12/10/17 Rx [Vitamin B-12] Levofloxacin [Levaquin] 750 mg PO DAILY #5 tab 10/09/17 12/10/17 Rx Thiamine 100 mg PO DAILY #30 tab 10/09/17 12/10/17 Rx - History PMHx: COPD, Parkinson's, bipolar/schizophrenia, depression, PR X 2 s/p stents, prostate cancer, HTN PSHx: CAD s/p Stents, prostatectomy, bilateral knee meniscus repair, colectomy 3 yrs ago due to villous adenoma FHx: non contributory Social: 4-5 bottles of wine/day, quit smoking 3years ago - 60 pack year hx, quit smoking weed 3 years ago, denies drug use - Review of Systems General: denies: fever/chills, weight/appetite/sleep changes, night sweats, fatigue Eyes: denies: eye pain, vision changes ENT: denies: nasal congestion, rhinorrhea Respiratory: reports: shortness of breath, exercise intolerance. denies: cough , congestion Cardiovascular: denies: chest pain, palpitation, edema, paroxysmal nocturnal dyspnea, orthopnea Gastrointestinal: denies: nausea, vomiting, diarrhea, constipation, abdominal pain Genitourinary: denies: incontinence, dysuria Skin: reports: rashes (psoriasis rash). denies: lesions, jaundice Musculoskeletal: denies: pain, tenderness, stiffness, swelling Neurological: denies: numbness, syncope Psychological: reports: depression - Vital signs BP: 140/85 HR: 80 RR: 18 Tmax: 99.3 Pox: 87% on 2L Wt: 84.8kg - Physical Exam Constitutional: NAD, awake, alert and oriented, well developed HEENT: normocephalic and atraumatic, PERRLA, EOMI, grossly normal vision, grossly normal hearing -HEENT: poor dentition Neck: supple, no JVD Chest: no-tender to palpation Heart: RRR, normal S1/S2, no murmurs/rubs/gallops, pulses present -Lungs: expiratory wheeze heard diffusely Abdomen: soft, non-tender, bowel sounds present, no masses/distention Musculoskeletal: normal structure, normal tone -Neurological: tremor in bilateral upper extremities -Skin: psoriasis lesions (silver, shiny plaquqes) on scalp, anterior chest, bilateral shins Heme/Lymphatic: no unusual bruising or bleeding, no purpura, no petechia -Psychiatric: depressed, anxious, tearful upon interview due to family issues; no current SI FMR H&P: Results - Labs Result Diagrams: 12/09/17 20:53 12/10/17 03:10 Lab results: WBC 7.4 thou/uL (4.8-10.8) 12/09/17 20:53 Hgb 15.4 g/dL (14.0-18.0) 12/09/17 20:53 Hct 45.1 % (42.0-52.0) 12/09/17 20:53 MCV 107.0 fL (78.0-98.0) H 12/09/17 20:53 Plt Count 332 thou/uL (130-400) 12/09/17 20:53 Sodium 143 mmol/L (136-145) 12/09/17 20:53 Potassium 4.1 mmol/L (3.5-5.1) 12/09/17 20:53 Chloride 110 mmol/L (98-107) H 12/09/17 20:53 Carbon Dioxide 16 mmol/L (23-31) L 12/09/17 20:53 BUN 10 mg/dL (8.4-25.7) 12/09/17 20:53 Creatinine 0.88 mg/dL (0.6-1.3) 12/09/17 20:53 Glucose 175 mg/dL (80-115) H 12/09/17 20:53 Calcium 8.9 mg/dL (7.8-10.44) 12/09/17 20:53 Total Bilirubin 0.3 mg/dL (0.2-1.2) 12/09/17 20:53 AST 42 U/L (5-34) H 12/09/17 20:53 ALT 44 U/L (8-55) 12/09/17 20:53 Alkaline Phosphatase 75 U/L (40-150) 12/09/17 20:53 Creatine Kinase 95 U/L (30-200) 12/09/17 20:53 Serum Total Protein 6.7 g/dL (5.8-8.1) 12/09/17 20:53 Albumin 4.2 g/dL (3.4-4.8) 12/09/17 20:53 Urine Ketones Negative mg/dL (Negative) 12/09/17 21:00 Urine Blood Negative (Negative) 12/09/17 21:00 Urine Nitrite Negative (Negative) 12/09/17 21:00 Ur Leukocyte Esterase Negative (Negative) 12/09/17 21:00 FMR H&P: A/P - Problem List (1) COPD exacerbation Current Visit: Yes Status: Acute Code(s): J44.1 - CHRONIC OBSTRUCTIVE PULMONARY DISEASE W (ACUTE) EXACERBATION (2) Alcohol abuse Current Visit: No Status: Chronic Code(s): F10.10 - ALCOHOL ABUSE, UNCOMPLICATED (3) Bipolar 2 disorder Current Visit: No Status: Chronic Code(s): F31.81 - BIPOLAR II DISORDER (4) Depression Current Visit: No Status: Chronic Code(s): F32.9 - MAJOR DEPRESSIVE DISORDER , SINGLE EPISODE, UNSPECIFIED (5) Parkinson disease Current Visit: No Status: Chronic Code(s): G20 - PARKINSON'S DISEASE (6) Coronary artery disease Current Visit: No Status: Chronic Code(s): I25.10 - ATHSCL HEART DISEASE OF [place] CORONARY ARTERY W/O ANG PCTRS (7) Hypertension Current Visit: No Status: Chronic Code(s): I10 - ESSENTIAL (PRIMARY) HYPERTENSION - Plan 1. COPD exacerbation - likely 2/2 to alcohol abuse vs medication noncompliance - DuoNeb q4hr X 3 and PRN - Will start Azithromycin - Will start prednisone 40 PO daily X 4 - O2 to maintain sats between 88-92%; will continuously monitor O2 sats 2. Alcohol Abuse - Pt has hx of heavy alcohol use: 4-5 bottles wine/day - Will initiate ASE protocol - Will give thiamine/folate daily 3. Bipolar/Depression - Pt currently without SI - Will put on suicide precaution protocol - Will continue home medication of lithium if lithium level found to be normal - Once vitally stable and satting well will send to [facility] for psychiatric issues 4. Parkinson's - condition stable right now - Will monitor status; pt does not regularly take his home medications - Will talk with pt more tomorrow about medications and re-starting them 5. CAD - condition stable - Will order EKG, continue ASA/statin - Will monitor status - will start on prophylactic lovenox 6. HTN - Will monitor BPs; most recent BP 140/85 - Will add hydralazine PRN for SBP > 180 and DBP > 100 Disposition/LOS: DISPO: likely > 2 midnights CODE: FULL FMR H&P: Upper Level - Pertinent history 67 y/o alcoholic male with COPD, Parkinsons disease, Bipolar & schizophrenia presents with SI and SOB. SI began today after discharge from the ED in which he became angry with his discharge and drank 2 bottles of wine after he left. He states he is chronically SOB and does not feel any worse than usual. His suicidal ideations returned after we went home and drank wine. Planned to take an entire bottle of lithium, and called 911 for the suicidal ideations. He currently denies SI while in the ED and is on O2 with 100% O2 saturation. - Pertinent findings GEN: NAD CARDIO/chest: RRR, no MRG. RESP: diffuse expiratory wheezes noted throughout all mack. Extremities: no edema, pulses strong Neuro: no focal deficits, CN intact SKIN: diffuse macular erythematous rash on chest and extremities. PSYCH: A&O x4, thoughts normal - Plan Date/Time: 12/10/17 1256 I have reviewed assessment from analytics intern resident and agree and add: # COPD Exacerbation -Will continue DuoNebs, Steroids, start abx and keep O2 sats >88%. O2 PRN. # ETOH Intoxication - Alcohol most recently 76. Will place on ASE protocol. Continue Folate/Thiamine daily. Will check [place] level and monitor for withdrawal symptoms. # Parkinsons Dementia - On unknown medications, but has not been taking. Will hold for now and obtain more history from patient tomorrow regarding medication use. # Suicidal Ideation - Will place on suicide precautions. Once medically cleared , will consult MHMR. # Bipolar Disorder - No acute issues; obtain lithium level # CAD - No acute chest pain, will order EKG and continue ASA/Plavix. # FEN - Regular diet, replete lytes as needed, Attending Addendum - Attending Addendum Date/Time: 12/10/17 7373 I personally evaluated the patient and discussed the management with Dr. Krishnan I agree with the History, Examination, Assessment and Plan documented above with any addition or exceptions noted below. Patient 67 yo male with Parkinsonism, COPD ,Bipolar(Depression) with life circumstance crisis involved children being recently incarcerated which has caused significant distress for the patient. Patient relying on alcohol as coping mechanism and acting out no active suicidal ideation or gestures. Patient unable to get into outpatient rehab and was admitted after 2nd ER visit. Will have MHMR evaluate today for further Psychiatric recommendation restart lithium consider librium taper if patient was willing to discontinue drinking. Would rec spiriva and albuterol as outpatient management of COPD, encourage alcohol cessation patient not willing to stop at this time, encourage revisit Neurologist for management of Parkinsonism. History of CAD s/p Stent need to RX DUAC, Statin continuation.
[2017-12-10] MEDS ORDERED: hydrALAZINE 20 MG/ML VIAL SLOW IVP PRN (03:16)
[2017-12-10] MEDS ORDERED: Ondansetron HCl/PF 4 MG/2 ML Vial IVP PRN ×2 (04:10→04:27)
[2017-12-10] MEDS ORDERED: Acetaminophen 325 MG TAB PO PRN ×2 (04:10→04:27)
[2017-12-10] MEDS ORDERED: Ondansetron ODT 4 MG TAB SL PRN (04:10)
[2017-12-10] MEDS ORDERED: Diazepam 5 MG TAB PO PRN (04:11)
[2017-12-10] MEDS ORDERED: Sodium Chloride 0.9% 1,000 ML IV SCH (04:15)
[2017-12-10] MEDS ORDERED: Ondansetron ODT 4 MG TAB PO PRN (04:27)
[2017-12-10 04:52] VITALS: BMI 25.7
--- NOTE | 2017-12-10 06:45 | PDOC.FM ---
Addendum entered and electronically signed by Latasha Hernandes MD 12/10/17 11:23 : Problem: Parkinson's -Presence of rolling resting tremor on right hand -Patient not taking Parkinsonian meds b/c states they haven't been working. Advised to follow with his neurologist to optimize medications for symptom improvement Original Note: - Subjective Subjective: Patient denies SI, expresses desire to want to cut down on drinking. Children are incarcerated which is a cause of his excessive drinking. Denies SOB, headache, chest pain. - Objective MAR Reviewed: Yes Vital Signs & Weight: Vital Signs (12 hours) Temp Pulse Resp BP Pulse Ox 12/10/17 05:00 98.9 F 82 18 100 12/10/17 04:52 98.9 F 82 18 135/75 100 12/10/17 04:27 98.9 F 82 18 135/75 100 Weight Weight 86.046 kg Result Diagrams: 12/09/17 20:53 12/10/17 03:10 <Latasha Hernandes - Last Filed: 12/10/17 11:11> - Objective Vital Signs & Weight: Vital Signs (12 hours) Temp Pulse Resp BP Pulse Ox 12/10/17 12:52 80 20 12/10/17 12:18 99.1 F 95 18 116/71 95 12/10/17 10:58 88 20 12/10/17 08:40 97 12/10/17 08:36 75 16 97 12/10/17 08:30 98.3 F 80 20 99 12/10/17 07:39 98.3 F 77 16 128/70 99 12/10/17 05:00 98.9 F 82 18 100 12/10/17 04:52 98.9 F 82 18 135/75 100 12/10/17 04:27 98.9 F 82 18 135/75 100 Weight Weight 86.046 kg Result Diagrams: 12/09/17 20:53 12/10/17 03:10 <Jovan West - Last Filed: 12/10/17 14:37> Phys Exam - Physical Examination Constitutional: NAD HEENT: moist MMs diffuse inspiratory wheezes auscultation Gastrointestinal: soft, non-tender Musculoskeletal: no edema Resting pill-rolling tremor of right hand. Intention tremor of hands b/l horizontal nystagmus Psychiatric: A&O x 3 Deviation from normal: sad affect, tearful Deviation from normal: Flaky white skin on eyebrows, nose, maxillary skin of face <Latasha Hernandes - Last Filed: 12/10/17 11:11> Dx/Plan (1) Suicidal ideation Code(s): R45.851 - SUICIDAL IDEATIONS Status: Acute (2) Alcohol abuse Code(s): F10.10 - ALCOHOL ABUSE, UNCOMPLICATED Status: Chronic (3) Bipolar 2 disorder Code(s): F31.81 - BIPOLAR II DISORDER Status: Chronic (4) COPD (chronic obstructive pulmonary disease) Status: Chronic QualifierTitle: Emphysema type: unspecified - Plan Plan: 67 yo M here with SI, COPD exacerbation, EtOH abuse 1. SI -Currently denies SI -Normal lithium level, will resume for BP disorder -[facility] consulted 2. COPD exacerbation -Satting >94% on RA -Continue duo nebs PRN, added spireva. Patient is currently only using Albuterol inhaler q2 hours at home to help with breathing. Will send home with rx for Spireva and Combivent with albuterol PRN 3. ETOH abuse, chronic -Mildly elevated AST at 42; AST/ALT <2 -Current BAL 72 (admission: 207) -Continue ASE protocol to prevent withdrawals: Folic acid, thiamine 100mg po daily, valum 4. Bipolar Disorder -Patient endorses depressive symptoms due to life circumstances (2children incarcerated). Had extensive discussion about importance of stopping alcohol use. Pt. acknowledges that he is considering the change, has reached out to be placed at treatment center [facility] but currently beds are full. PPx: Lovenox Dispo: Medically cleared, discharge pending [facility] recommendations Plan discussed with Dr. West <Latasha Hernandes - Last Filed: 12/10/17 11:11> (1) COPD exacerbation Code(s): J44.1 - CHRONIC OBSTRUCTIVE PULMONARY DISEASE W (ACUTE) EXACERBATION Status: Acute (2) Alcohol abuse Code(s): F10.10 - ALCOHOL ABUSE, UNCOMPLICATED Status: Chronic (3) Bipolar 2 disorder Code(s): F31.81 - BIPOLAR II DISORDER Status: Chronic (4) Depression Code(s): F32.9 - MAJOR DEPRESSIVE DISORDER, SINGLE EPISODE, UNSPECIFIED Status : Chronic (5) Parkinson disease Code(s): G20 - PARKINSON'S DISEASE Status: Chronic (6) Coronary artery disease Code(s): I25.10 - ATHSCL HEART DISEASE OF [place] CORONARY ARTERY W/O ANG PCTRS Status: Chronic (7) Hypertension Code(s): I10 - ESSENTIAL (PRIMARY) HYPERTENSION Status: Chronic <Jovan West - Last Filed: 12/10/17 14:37> Attending Addendum - Attending Addendum Date/Time: 12/10/17 1085 I personally evaluated the patient and discussed the management with Dr. Hernandes I agree with the History, Examination, Assessment and Plan documented above with any addition or exceptions noted below. History notable Alcohol abuse, Bipolar, COPD, CAD s/p Sent, Parkinsonism and prostrate CA. At present patient not actively suicidal no plan, he is significant distressed regarding his childrens situation. Await [facility] rec although multiple co-morbid condition he is medically stable at this time. If admitted however to inpatient facility he would need detox and DT protocol. <Jovan West - Last Filed: 12/10/17 14:37>
[2017-12-10 07:13] LABS: ALT (SGPT) 40 U/L (8-55); AST (SGOT) 39 U/L (5-34); Alkaline Phosphatase 67 U/L (40-150); Anion Gap 17 mmol/L (10-20); BUN (Urea Nitrogen) 10 mg/dL (8.4-25.7); Bilirubin, Total 0.4 mg/dL (0.2-1.2); Calc. Creatinine Clearance 113 mL/min (70-130); Calcium 8.4 mg/dL (7.8-10.44); Carbon Dioxide 21 mmol/L (23-31); Chloride 105 mmol/L (98-107); Estimated GFR-MDRD Greater than 90; Globulin 2.4 g/dL (2.4-3.5); Glucose 169 mg/dL (80-115); Potassium 3.8 mmol/L (3.5-5.1); Protein, Total 6.4 g/dL (5.8-8.1); Sodium 139 mmol/L (136-145)
[2017-12-10] MEDS ORDERED: predniSONE 20 MG TAB PO SCH (08:00)
[2017-12-10] MEDS: PROVENTIL INHALER 6.7 G (200 INHALATIONS) INH SCH ×4 (08:36→19:37)
[2017-12-10] MEDS ORDERED: Azithromycin 250 MG TAB PO SCH (09:00)
[2017-12-10] MEDS ORDERED: Folic Acid 1 MG TAB PO SCH ×2 (09:00)
[2017-12-10] MEDS ORDERED: Enoxaparin Sodium 40 MG/0.4 ML SYRINGE SC SCH (09:00)
[2017-12-10] MEDS ORDERED: Multivitamin W/ Minerals 1 TAB PO SCH (09:00)
[2017-12-10] MEDS ORDERED: Cyanocobalamin (Vitamin B-12) 1,000 MCG TAB PO SCH (09:00)
--- NOTE | 2017-12-10 10:06 | RAD ---
RADIOGRAPH CHEST 1 VIEW: Date: 12/10/17 Time: 0201 hours HISTORY: 67-year-old male with cough. COMPARISON: 12/07/17. FINDINGS: There is a new finding of subsegmental atelectasis at the left lung base, with associated new elevati on of left hemidiaphragm. The rest of the lungs are grossly clear. No pneumothorax. No pulmonary lakes[place] a. IMPRESSION: Interval development of atelectasis at the left lung base, resulting in elevation of left hemidiaphra gm. YAMILET [] POS: [facility]
[2017-12-10] MEDS: Ipratropium Bromide 2.5 ml Neb NEB SCH ×2 (12:52→19:37)
[2017-12-10 14:15] VITALS: TEMP 99.1
[2017-12-10] MEDS ORDERED: Multivitamins, Adult 10 ML, Folic Acid 1 MG, Thiamine HCl 100 MG in Dextrose 5 %-0.45 %... IV SCH (18:00)
[2017-12-10 19:38] VITALS: BP 132/77
[2017-12-10] MEDS ORDERED: Aspirin 81 mg Enteric Coated Tablet PO SCH (21:00)
[2017-12-10] MEDS ORDERED: Metoprolol Tartrate 25 MG TAB PO SCH (21:00)
[2017-12-10] MEDS ORDERED: Lithium Carbonate ER 450 mg Tablet PO SCH (21:00)
[2017-12-10] MEDS ORDERED: Clopidogrel Bisulfate 75 MG TAB PO SCH (21:00)
[2017-12-11] MEDS ORDERED: Diazepam 5 MG TAB PO PRN (04:00)
[2017-12-11] MEDS ORDERED: Spiriva 18 MCG CAP (Box of 5 Caps) INH SCH (07:00)
[2017-12-11] MEDS ORDERED: Azithromycin 250 MG TAB PO SCH (09:00)
[2017-12-11] MEDS ORDERED: Magnesium Oxide 400 MG TAB PO SCH (09:00)
--- NOTE | 2017-12-11 12:37 | DIS-2 ---
DATE OF ADMISSION: 12/10/2017 DATE OF DISCHARGE: 12/10/2017 RESIDENT: Latasha Hernandes, PGY1. ADMITTING ATTENDING: Jovan West MD DISCHARGE ATTENDING: Jovan West MD CONSULT: [facility]. PROCEDURE: None. PRIMARY DIAGNOSES: 1. Chronic obstructive pulmonary disease exacerbation. 2. Suicidal ideation. 3. Alcohol abuse. SECONDARY DIAGNOSES: 1. Bipolar 2 disorder. 2. Coronary artery disease. 3. Hypertension. 4. Parkinson's. DISCHARGE MEDICATIONS: 1. Folic acid 1 mg p.o. daily. 2. Combivent 1 puff inhalation q.i.d. daily. 3. Spiriva HandiHaler 18 mcg inhalation daily. 4. [place] carbonate 900 mg p.o. at bedtime. 5. Clopidogrel 75 mg p.o. at bedtime. 6. Albuterol sulfate 2 puffs inhalation q.4. hours p.r.n. for dyspnea. 7. Aspirin 81 mg p.o. at bedtime. 8. Metoprolol tartrate 25 mg p.o. at bedtime. 9. Levaquin 750 mg p.o. daily. 10. Thiamine 100 mg p.o. daily. DISCONTINUED MEDICATION: Vitamin B12 of 1000 mcg p.o. daily. HISTORY OF PRESENT ILLNESS AND HOSPITAL COURSE: Mr. Lynch was admitted for suicidal ideation. The day before he came to the ED, he reported suicidal ideation and was sent home. He felt angry for not having received what we thought was adequate medical care, so he drank two bottles of wine and menti oned the idea of lithium overdose. Before taking any lithium, he called the police and was brought i n to the ED for suicidal ideation. In the ED, he also complained of feeling short of breath. He was started on alcohol withdrawal protocol in order to prevent withdrawals and treated for COPD exacerba tion. He was seen by [facility] who created a safety contract with him. Per nurse, he was able to be prom inence rehabilitation. The patient expressed desire to want to cut down on drinking, but initi ally felt it would be difficult because he uses other coping mechanism for stressful life situations. He clinically improved with a COPD exacerbation, satting in the 90s on room air. Rest of labs were unremarkable. Patient was discharged to home after seen by [facility]. DISPOSITION: Stable. DISCHARGE INSTRUCTIONS: 1. Location: Home. 2. Diet: Regular diet. 3. Activity: As tolerated. 4. Followup: Please follow up with PCP and neurologist in order to optimize Parkinson's medications . Please follow up with Rehab for continued management and aid in alcohol cessation.
== END 2017-12-10 19:10 | disposition home or self-care (01) | DRG 191 ==
LOC: ERS 19:56 → 2NO 12-10 02:03 → ERS 12-10 04:00
PROVIDERS: ADMIT Family Medicine; ATTEND Family Medicine
DX: J44.1 Chronic obstructive pulmonary disease with (acute) exacerbation (principal); F31.81 Bipolar II disorder; R45.851 Suicidal ideations; F10.239 Alcohol dependence with withdrawal, unspecified; F32.9 Major depressive disorder, single episode, unspecified; G20 Parkinson's disease; I25.10 Atherosclerotic heart disease of native coronary artery without angina pectoris; I10 Essential (primary) hypertension; I25.2 Old myocardial infarction; F20.9 Schizophrenia, unspecified; F10.229 Alcohol dependence with intoxication, unspecified; Y90.3 Blood alcohol level of 60-79 mg/100 ml
CPT/HCPCS: 36415; 71045; 80053; 80178; 80306; 80307; 81003; 82550; 84443; 85025; 94640; 94664; 96365; 96366; 96375; J1650; J2060; J2930; J3411; J3475; J7042; J7050; J7506; J7620; J7644

== ENCOUNTER 2017-12-12 21:29 | Emergency (ER) | payer MEDICARE, MEDICAID ==
[2017-12-12 22:05] LABS: #Basophils 0.1 thou/uL (0.0-0.2); #Eosinphils 0.9 thou/uL (0.0-0.7); #Lymphocytes 2.8 thou/uL (1.20-3.40); #Monocytes 0.6 thou/uL (0.11-0.59); #Neutrophils 4.7 thou/uL (1.40-6.50); %Basophils 1.5 % (0.0-1.0); %Eosinophils 9.6 % (0.0-10.0); %Lymphocytes 30.4 % (21.0-51.0); %Monocytes 6.8 % (0.0-10.0); %Neutrophils 51.7 % (42.0-75.0); Hemoglobin 14.8 g/dL (14.0-18.0); Mean Corpuscular HGB CONC 34.5 g/dL (32.0-36.0); Mean Corpuscular Hemoglobin 36.6 pg (27.0-31.0); Mean Platelet Volume 6.5 fL (7.4-10.4); Platelet Count 301 thou/uL (130-400); RBC Distribution Width 12.9 % (11.5-14.5); Red Blood Cell (RBC) Count 4.06 mill/uL (4.70-6.10)
[2017-12-12 22:28] LABS: ALT (SGPT) 56 U/L (8-55); AST (SGOT) 57 U/L (5-34); Alkaline Phosphatase 61 U/L (40-150); Anion Gap 15 mmol/L (10-20); BUN (Urea Nitrogen) 9 mg/dL (8.4-25.7); Bilirubin, Total 0.3 mg/dL (0.2-1.2); Calc. Creatinine Clearance 0 mL/min (70-130); Calcium 8.7 mg/dL (7.8-10.44); Carbon Dioxide 19 mmol/L (23-31); Chloride 112 mmol/L (98-107); Estimated GFR-MDRD Greater than 90; Globulin 2.3 g/dL (2.4-3.5); Glucose 120 mg/dL (80-115); Protein, Total 6.3 g/dL (5.8-8.1); Sodium 142 mmol/L (136-145)
[2017-12-12 22:30] LABS: Acetaminophen Less than 6.0 mcg/mL (10.0-30.0); Alcohol 201 mg/dL (Less than 10); Salicylate Less than 8.0 mg/dL (15.0-30.0)
[2017-12-12 23:01] LABS: Amphetamine Not Detected (NotDetected); Barbiturates Screen Not Detected (NotDetected); Benzodiazepine Screen Detected (NotDetected); Cocaine Metabolite Screen Not Detected (NotDetected); Medtox Control Line Valid? VALID (VALID); Medtox Reader # READER 1; Methadone Not Detected (NotDetected); Methamphetamine Not Detected (NotDetected); Opiate Screen Not Detected (NotDetected); Oxycodone Screen Not Detected (NotDetected); Phencyclidine (PCP) Not Detected (NotDetected); THC/Cannabinoid Screen Not Detected (NotDetected); Tricyclic Screen Not Detected (NotDetected)
== END 2017-12-13 00:33 | disposition home or self-care (01) ==
LOC: ERS 21:29
DX: F10.20 Alcohol dependence, uncomplicated (principal); I25.2 Old myocardial infarction; I25.10 Atherosclerotic heart disease of native coronary artery without angina pectoris; I10 Essential (primary) hypertension; J45.909 Unspecified asthma, uncomplicated; G20 Parkinson's disease
CPT/HCPCS: 36415; 80053; 80306; 80307; 85025; 99284

== ENCOUNTER 2017-12-20 21:01 | Inpatient (IN) | payer MEDICARE, MEDICAID ==
[2017-12-20] MEDS ORDERED: Ondansetron HCl/PF 4 MG/2 ML Vial ONE (21:23)
[2017-12-20 21:44] LABS: Acetaminophen Less than 6.0 mcg/mL (10.0-30.0); Alcohol 211 mg/dL (Less than 10); Salicylate Less than 8.0 mg/dL (15.0-30.0)
[2017-12-20 22:35] LABS: #Basophils 0.1 thou/uL (0.0-0.2); #Eosinphils 0.6 thou/uL (0.0-0.7); #Lymphocytes 1.7 thou/uL (1.20-3.40); #Monocytes 0.7 thou/uL (0.11-0.59); #Neutrophils 5.9 thou/uL (1.40-6.50); %Basophils 0.9 % (0.0-1.0); %Eosinophils 7.1 % (0.0-10.0); %Lymphocytes 18.6 % (21.0-51.0); %Monocytes 7.9 % (0.0-10.0); %Neutrophils 65.5 % (42.0-75.0); Hemoglobin 15.2 g/dL (14.0-18.0); Mean Corpuscular HGB CONC 35.3 g/dL (32.0-36.0); Mean Corpuscular Hemoglobin 37.1 pg (27.0-31.0); Mean Platelet Volume 7.5 fL (7.4-10.4); Platelet Count 231 thou/uL (130-400); RBC Distribution Width 12.9 % (11.5-14.5)
[2017-12-20 22:55] LABS: ALT (SGPT) 34 U/L (8-55); AST (SGOT) 40 U/L (5-34); Alkaline Phosphatase 65 U/L (40-150); Anion Gap 16 mmol/L (10-20); BUN (Urea Nitrogen) 10 mg/dL (8.4-25.7); Bilirubin, Total 0.4 mg/dL (0.2-1.2); Calc. Creatinine Clearance 0 mL/min (70-130); Calcium 9.5 mg/dL (7.8-10.44); Carbon Dioxide 17 mmol/L (23-31); Chloride 112 mmol/L (98-107); Estimated GFR-MDRD 84; Glucose 106 mg/dL (80-115); Potassium 4.3 mmol/L (3.5-5.1); Sodium 141 mmol/L (136-145)
[2017-12-21] MEDS ORDERED: Ondansetron HCl/PF 4 MG/2 ML Vial ONE
[2017-12-21 01:36] LABS: Amphetamine Not Detected (NotDetected); Barbiturates Screen Not Detected (NotDetected); Benzodiazepine Screen Detected (NotDetected); Cocaine Metabolite Screen Not Detected (NotDetected); Medtox Control Line Valid? VALID (VALID); Medtox Reader # READER 4; Methadone Not Detected (NotDetected); Methamphetamine Not Detected (NotDetected); Opiate Screen Not Detected (NotDetected); Oxycodone Screen Not Detected (NotDetected); Phencyclidine (PCP) Not Detected (NotDetected); THC/Cannabinoid Screen Not Detected (NotDetected); Tricyclic Screen Not Detected (NotDetected)
[2017-12-21] MEDS ORDERED: Ondansetron ODT 4 MG TAB SL PRN (05:45)
[2017-12-21] MEDS ORDERED: Ondansetron HCl/PF 4 MG/2 ML Vial IVP PRN (05:45)
[2017-12-21] MEDS ORDERED: Acetaminophen 325 MG TAB PO PRN (05:45)
[2017-12-21 05:49] VITALS: BMI 24.1
[2017-12-21] MEDS ORDERED: PROVENTIL INHALER 6.7 G (200 INHALATIONS) INH PRN (06:17)
--- NOTE | 2017-12-21 07:11 | HP ---
PRIMARY CARE PHYSICIAN: Dr. Evert Bray CODE STATUS: FULL CODE. TIME OF EVALUATION: 6 a.m. CHIEF COMPLAINT: Suicidal ideation and attempt with lithium overdose. HISTORY OF PRESENT ILLNESS: This is a 67-year-old male patient with a past medical history of Marcela son disease, bipolar disorder on lithium, chronic alcohol abuse, came to the hospital after calling [phone]. The patient reported that he was trying to kill himself, and make follow up with him again. The patient took a handful of lithium and he also reported that he took 3-4 bottles of wine. He reporte d that he drinks on a daily basis about 5-6 bottles of wine. Symptoms on presentation were mild. Th e patient has had no significant symptoms from the intoxication; however, he continues to have suicid al thoughts. Symptoms are triggered by argument with the rehab institution. No alleviating factors. REVIEW OF SYSTEMS: CONSTITUTIONAL: No fever, no chills, no generalized weakness. RESPIRATORY: No cough, sputum production, shortness of breath. CARDIOVASCULAR: No chest pain, palpitations, shortness of breath. GASTROINTESTINAL: The patient has occasional nausea, no vomiting, no diarrhea, no abdominal pain. SETTLEMENT TECHNICIAN: The patient has tremors, mostly on the right side due to Parkinson's. No other significant sym ptoms. No headache. No tingling. GENITOURINARY: No burning with urination. EXTREMITIES: No leg swelling. All other systems reviewed and negative except for the findings mentioned above. PAST MEDICAL HISTORY: Positive for coronary artery disease, status post 3 stent placements, prostate cancer, hypertension, asthma, COPD, Parkinson's, bilateral inguinal hernias. PAST SURGICAL HISTORY: Prostatectomy, bilateral knee replacement, right shoulder, cardiac stents, bi lateral inguinal hernia repair, colectomy. PSYCHIATRIC HISTORY: Bipolar disorder, depression, suicidal ideations, history of suicidal attempts. SOCIAL HISTORY: No drugs. The patient drinks every day 4-5 bottles of wine a day. No smoking, quit a few years ago. ALLERGIES: No known drug allergies. MEDICATIONS: Ruhenstroth, metoprolol, aspirin, Plavix, folic acid. PHYSICAL EXAMINATION: VITAL SIGNS: On presentation, blood pressure 132/87 with heart rate 104, respiratory rate was 22, te mperature 98.7, oxygen saturation 96% on room air. GENERAL APPEARANCE: The patient is alert, oriented, no acute distress. HEENT: Eyes; normal conjunctivae. Moist oral mucosa. Anicteric. NECK: No JVD. RESPIRATORY: Bilateral air entry. No rales, no wheezing. Symmetric expansion. CARDIOVASCULAR: Normal rate, regular rhythm, no murmurs, no gallops or edema. ABDOMEN: Soft, normal bowel sounds. MUSCULOSKELETAL: Baseline range of motion and strength. No tenderness. SKIN: Warm and intact. No pallor, no rash, no redness. Peripheral pulses are present and capillary refills seem to be intact. NEUROLOGIC: Baseline sensory. Patient has Parkinson disease with a significant tremor in the right upper extremity. No evidence of any focal weakness. The patient has baseline speech. Cranial nerve s seems to be intact. PSYCHIATRIC: The patient is depressed, no anxiety, oriented, still with suicidal thoughts. EKG was reviewed. The patient has normal sinus rhythm with a rate of 96 with no ectopics, conduction , normal T waves. Right ventricular hypertrophy, inferior infarct. LABORATORY DATA: Hematology: White count 9, hemoglobin 15.2, MCV 105, platelet count 231. Sodium 1 41, potassium 4.3, chloride 112, carbon dioxide 17, anion gap 16, creatinine 0.9. LFTs are normal. Toxicology reported salicylate negative, acetaminophen negative, benzodiazepines detected. Ruhenstroth l evel 2.8 initially, repeat 5.9. Alcohol level 211 and the repeat 190. ASSESSMENT AND PLAN: The patient will be placed in the hospital with following medical problems. 1. Suicidal attempt, patient is high risk of complication due to this problem, patient is still [facility] thoughts, we will place a 1 to 1, we will need psych to evaluate the patient in the [facility]. 2. Alcohol abuse, alcohol level is increased, advised the patient to stop drinking alcohol. 3. History of depression, with previous suicidal ideation, patient is on lithium, now lithium overdo se due to intentional overdose. We will need psych evaluation. 4. Ruhenstroth overdose. Initial reading was 2.8, second reading was 5.95. The patient has no symptoms . The patient will receive hydration. Poison Control has been contacted. Recommendation is for mon itoring and treatment according to symptoms. If the patient becomes symptomatic, might need Nephrolo gy for evaluation of emergent dialysis. There is no indication at this point. 5. Deep venous thrombosis prophylaxis.
[2017-12-21] MEDS ORDERED: Non-Formulary Item 1 EACH (Ipratropium-Albuterol [Combivent] 1 PUFF) INH SCH (09:00)
[2017-12-21] MEDS: Enoxaparin Sodium 40 MG/0.4 ML SYRINGE SC SCH (09:22)
[2017-12-21] MEDS: Sodium Chloride 0.9% 1,000 ML IV SCH ×2 (09:23→17:14)
--- NOTE | 2017-12-21 15:29 | PDOC.PN ---
- Subjective Encounter Start Date: 12/21/17 Encounter Start Time: 15:05 Subjective: f/u for SI/suicide attempt with intentional Killen OD. Elevated Killen -: levels on currrent IVF's. Heavy alcoholism hx. Last ETOH 12h ago. - Objective Resuscitation Status: Resuscitation Status FULL:Full Resuscitation MAR Reviewed: Yes Vital Signs & Weight: Vital Signs (12 hours) Temp Pulse Resp BP Pulse Ox 12/21/17 14:57 78 20 97 12/21/17 13:55 99.2 F 76 15 95/52 L 96 12/21/17 10:59 88 L 12/21/17 10:58 91 20 88 L 12/21/17 09:17 99.2 F 76 15 111/63 96 12/21/17 06:13 100.3 F H 97 20 94 L 12/21/17 05:47 100.3 F H 97 20 146/81 H 94 L Weight Admit Weight 178 lb Weight 178 lb Result Diagrams: 12/20/17 22:11 12/20/17 22:11 Additional Labs: Laboratory Tests 12/20/17 12/20/17 12/21/17 21:18 22:11 00:01 U Benzodiazepines Scrn Detected H Killen 2.834 H* Plasma Alcohol 211 H 12/21/17 12/21/17 02:56 02:56 U Benzodiazepines Scrn Killen 5.916 H* Plasma Alcohol 90 H EKG Reviewed by me: Yes (Tele - SR) Phys Exam - Physical Examination alert, flat affect, responsive HEENT: PERRLA, sclera anicteric, oral pharynx no lesions Neck: no nodes, no JVD, supple, full ROM Respiratory: no wheezing, no rales, no rhonchi, clear to auscultation bilateral S1, S2 Cardiovascular: RRR, no significant murmur, no rub, gallop Gastrointestinal: soft, non-tender, no distention, positive bowel sounds Musculoskeletal: no edema, pulses present Neurological: normal sensation, moves all 4 limbs flat affect Psychiatric: A&O x 3 Skin: no rash, normal turgor, cap refill <2 seconds Dx/Plan (1) Intentional lithium overdose Code(s): T56.892A - TOXIC EFFECT OF OTH METALS, INTENTIONAL SELF-HARM, INIT Status: Acute Qualifiers: Encounter type: initial encounter Qualified Code(s): T56.892A - Toxic effect of other metals, intentional self-harm, initial encounter Comment: Continue IVF's, MHMR consult when medically stable (2) Suicidal ideation Code(s): R45.851 - SUICIDAL IDEATIONS Status: Acute Comment: Apparently recurrent ideation and hx of similar presentation, see #1, sitter 1:1 (3) Alcohol abuse Code(s): F10.10 - ALCOHOL ABUSE, UNCOMPLICATED Status: Chronic Comment: Ativan 2mg IV q6h prn withdrawal sx, MVI, Thiamine, Folate (4) Bipolar 2 disorder Code(s): F31.81 - BIPOLAR II DISORDER Status: Chronic Comment: Supportive mgmt (5) Depression Code(s): F32.9 - MAJOR DEPRESSIVE DISORDER, SINGLE EPISODE, UNSPECIFIED Status : Chronic Comment: [facility] for disposition - Plan social service worker, out of bed/ambulate, DVT proph w/SCDs Stable currently -: Sitter 1:1 -: Continue IVF's -: Ativan 2mg IV q6h prn withdrawal -: AM lab: BMP, CBC, Killen level * .
[2017-12-21] MEDS ORDERED: Sodium Chloride 0.9% 1,000 ML IV SCH ×2 (20:30→23:30)
[2017-12-21] MEDS: Aspirin 81 mg Enteric Coated Tablet PO SCH (20:44)
[2017-12-21] MEDS: Clopidogrel Bisulfate 75 MG TAB PO SCH (20:44)
--- NOTE | 2017-12-21 22:07 | RAD ---
RADIOGRAPH CHEST 1 VIEW: Date: 12/21/17 Time: 9:49 p.m. HISTORY: 67-year-old male with cough. COMPARISON: 12/10/17 FINDINGS: Previously, there was elevation of the left hemidiaphragm and subsegmental atelectasis at the left ba se. Now, in addition to the elevated left hemidiaphragm, there is greater, more confluent air space o pacity at the left lower lobe base, partially silhouetting the left hemidiaphragm. There are new stre aky densities in the right lower lung zone, probably representing subsegmental atelectasis, although early infiltrate is not excluded. No pulmonary edema. There is also faint, mild right perihilar smal l infiltrate-like density. No pneumothorax. IMPRESSION: 1. Interval worsening of air space densities at the left lower lobe. This could represent pneumo yola, aspiration, or worsening of left lower lobe atelectasis. 2. Interval development of mild streaky densities in the right lung zone, and minimally in the r ight perihilar region. These are nonspecific. Some of this could represent subsegmental atelectasis. 3. Recommend followup. YAMILET [] POS: JIN
[2017-12-21 22:19] LABS: #Eosinphils 0.4 thou/uL (0.0-0.7); #Lymphocytes 0.9 thou/uL (1.20-3.40); #Monocytes 0.9 thou/uL (0.11-0.59); #Neutrophils 7.5 thou/uL (1.40-6.50); %Basophils 0.4 % (0.0-1.0); %Eosinophils 4.2 % (0.0-10.0); %Lymphocytes 9.1 % (21.0-51.0); %Monocytes 9.5 % (0.0-10.0); %Neutrophils 76.9 % (42.0-75.0); Hemoglobin 12.9 g/dL (14.0-18.0); Mean Platelet Volume 7.2 fL (7.4-10.4); Platelet Count 181 thou/uL (130-400); RBC Distribution Width 12.7 % (11.5-14.5); Red Blood Cell (RBC) Count 3.57 mill/uL (4.70-6.10); White Blood Cell (WBC) Count 9.7 thou/uL (4.8-10.8)
[2017-12-21 22:55] LABS: Anion Gap 8 mmol/L (10-20); BUN (Urea Nitrogen) 8 mg/dL (8.4-25.7); Calc. Creatinine Clearance 89 mL/min (70-130); Calcium 7.8 mg/dL (7.8-10.44); Carbon Dioxide 24 mmol/L (23-31); Chloride 106 mmol/L (98-107); Estimated GFR-MDRD 81; Glucose 118 mg/dL (80-115); Sodium 135 mmol/L (136-145)
[2017-12-21] MEDS ORDERED: Piperacillin/Tazobactam 3.375 GM in Sodium Chloride 0.9% 100 ML IVPB SCH (23:59)
[2017-12-22] MEDS: Piperacillin/Tazobactam 3.375 GM in Sodium Chloride 0.9% 100 ML IVPB SCH ×3 (00:08→12:49)
[2017-12-22] MEDS: Sodium Chloride 0.9% 1,000 ML IV SCH ×4 (00:09→20:30)
--- NOTE | 2017-12-22 00:15 | PDOC.EVN ---
Event Note - Event Note Event Note: Called for CVC placement d/t hypotension. After discusison r/b/a/i patient consents. In the usual sterile fashion a right IJ CVC was placed under ultrasound guidance with seldinger technique. Blood flow in all three ports. + lung sliding. Dressing applied. CXR ordered - adequate placement and no PTX. Ok to use CVC. I was present and gowned for the entire procedure. Formal note to follow.
[2017-12-22] MEDS ORDERED: Vancomycin HCl 1 GM in Premix Bag 1 BAG IVPB SCH (00:30)
[2017-12-22] MEDS: Norepinephrine 8 MG/250 ML BAG IVPB PRN ×2 (01:12→20:33)
[2017-12-22 04:57] LABS: #Eosinphils 0.6 thou/uL (0.0-0.7); #Lymphocytes 1.3 thou/uL (1.20-3.40); #Monocytes 1.3 thou/uL (0.11-0.59); #Neutrophils 9.2 thou/uL (1.40-6.50); %Basophils 0.4 % (0.0-1.0); %Eosinophils 5.1 % (0.0-10.0); %Monocytes 10.4 % (0.0-10.0); Hemoglobin 12.6 g/dL (14.0-18.0); Mean Corpuscular HGB CONC 34.7 g/dL (32.0-36.0); Mean Corpuscular Hemoglobin 36.8 pg (27.0-31.0); Mean Platelet Volume 7.5 fL (7.4-10.4); Platelet Count 199 thou/uL (130-400); RBC Distribution Width 12.8 % (11.5-14.5); Red Blood Cell (RBC) Count 3.41 mill/uL (4.70-6.10); White Blood Cell (WBC) Count 12.4 thou/uL (4.8-10.8)
[2017-12-22 05:13] LABS: Anion Gap 7 mmol/L (10-20); BUN (Urea Nitrogen) 7 mg/dL (8.4-25.7); Calc. Creatinine Clearance 90 mL/min (70-130); Carbon Dioxide 26 mmol/L (23-31); Chloride 108 mmol/L (98-107); Estimated GFR-MDRD 82; Glucose 147 mg/dL (80-115); Sodium 138 mmol/L (136-145)
[2017-12-22 05:14] LABS: Potassium 2.8 mmol/L (3.5-5.1)
[2017-12-22] MEDS: Potassium Chloride 20 MEQ TAB PO SCH ×2 (05:55→07:36)
--- NOTE | 2017-12-22 06:46 | OP-2 ---
DATE OF PROCEDURE: 12/22/2017 PROCEDURE: Internal jugular central line. RESIDENT: Juni Cartwright D.O. ATTENDING PHYSICIAN: Dr. Javier Hutchison INDICATION: Hypotension despite adequate fluid rehydration. CONSENT: Consent was obtained from the patient prior to the procedure. Indications, risks and benefits were explained at length. PROCEDURE SUMMARY: Timeout was performed, my hands were washed immediately prior to the procedure. I wore a surgical cap and mask with protective eyewear , full gown and sterile gloves throughout the procedure. The patient was placed in Trendelenburg position. Right chest was prepped using chlorhexidine scrub and draped in sterile fashion using a 3/4 sheet drape and sterile towels medial and lateral to the sternocleidomastoid were identified as was the carotid pulse. The internal jugular vein was identified using ultrasound. Anesthesia was achieved over the vein using 1% lidocaine. The introducer needle was inserted into the internal jugular vein under direct ultrasound visualization. Venous blood was withdrawn, the syringe was removed and a guidewire was advanced into the introducer needle. Guidewire was visualized in the internal jugular vein with ultrasound, small incision was made at the skin surface with a scalpel and the introducer needle was exchanged for a dilator over the guidewire. After appropriate dilation was obtained, the dilator was exchanged over the wire for a central line catheter. The wire was removed and the catheter was sutured in place at 18 cm. A CVC secure vent system was applied over the catheter at the insertion site. The patient tolerated the procedure without any hemodynamic compromise. At the time of the procedure completion, all ports were aspirated and flushed properly. Post-procedure chest x-ray showed appropriate placement of central line in the internal jugular. Dr. Javier Hutchison was present and gowned for the entire procedure. ESTIMATED BLOOD LOSS: Minimal. MTDD
[2017-12-22] MEDS ORDERED: Mag-Al 1200 mg/1200 mg/30 ML UDCUP PO PRN (07:28)
--- NOTE | 2017-12-22 07:35 | PDOC.PULCN ---
<AtaGirish kumar - Last Filed: 12/22/17 10:12> Pulmonology Consult: HPI - Date of Consult Date: 12/22/17 Time: 07:33 - Consult Details Reason for Consult: ICU admission on Levophed - History of Present Illness HPI: ROMAN STOUT is a 67 year-old M 67 yo M who was admitted to [facility] on 12/21 following an intentional Li overdose in an attempt to "get back" at a etoh rehab he had just checked himself out of. During the 1st 24 hours of admission pts max Li level was 5.9. He experienced significant diuresis and was found to be hypotensive requiring presser support. R IJ CVC was placed, pt was started on levo and he was transferred to the unit. 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 There have been no arrhythmias noted. Pt has a baseline tremor secondary to Parkinsons, he states that it is unchanged from base line. Metal status is at baseline. Pulmonology Consult: ROS - Review of Systems All systems: reviewed and no additional remarkable complaints except as stated ( Diarrhea, body aches) Constitutional: negative: fever, chills, sweats, weakness Cardiovascular: negative: chest pain, palpitations, light headedness Respiratory: productive cough. negative: chest tightness, short of breath Pulmonology Consult: [facility] Source: patient Past Medical History: CAD s/p 3v CABG, prostate ca, COPD, HTN, Parkinsons, MDD, etoh abuse, SAD - Family History Family history: reviewed and not pertinent - Social History Smoking Status: Former smoker Alcohol Use: heavy (4-5 wine bottles/day) Drug Use History: none Living Situation: independent Pulmonology Consult: Meds - Medications MAR Reviewed: Yes Medications: Current Medications Al Hydroxide/Mg Hydroxide (Maalox) 30 ml PO Q4H PRN PRN Reason: Heartburn or Indigestion Albuterol Sulfate (Proventil Hfa) 2 puff INH Q4H PRN PRN Reason: Dyspnea Albuterol/Ipratropium (Duoneb) 3 ml NEB QID-RT [facility] Last Admin: 12/21/17 19:06 Dose: 3 ml Aspirin (Ecotrin) 81 mg PO HS [facility] Last Admin: 12/21/17 20:44 Dose: 81 mg Clopidogrel Bisulfate (Plavix) 75 mg PO HS [facility] Last Admin: 12/21/17 20:44 Dose: 75 mg Enoxaparin Sodium (Lovenox) 40 mg SC 0900 [facility] Last Admin: 12/21/17 09:22 Dose: 40 mg Folic Acid (Folvite) 1 mg PO DAILY [facility] Sodium Chloride (Normal Saline 0.9%) 1,000 mls @ 125 mls/hr IV .Q8H [facility] Last Admin: 12/22/17 05:58 Dose: 1,000 mls Piperacillin Sod/Tazobactam (Sod 3.375 gm/ Sodium Chloride) 100 mls @ 200 mls/ hr IVPB Q6HR [facility] Last Admin: 12/22/17 05:55 Dose: 100 mls Norepinephrine Bitartrate (Levophed) 250 mls @ 0 mls/hr IVPB INF PRN; Protocol PRN Reason: Blood Pressure Last Admin: 12/22/17 01:12 Dose: 250 mls Lorazepam (Ativan) 2 mg SLOW IVP Q6H PRN PRN Reason: Anxiety/Agitation Multivitamins (Theragran) 1 tab PO DAILY [facility] Sodium Chloride (Flush - Normal Saline) 10 ml IVF Q12HR [facility] Last Admin: 12/21/17 23:54 Dose: Not Given Sodium Chloride (Flush - Normal Saline) 10 ml IVF PRN PRN PRN Reason: Saline Flush Thiamine HCl (Thiamine) 100 mg PO DAILY [facility] - Allergies Allergies/Adverse Reactions: Allergies Allergy/AdvReac Type Severity Reaction Status Date / Time No Known Allergies Allergy Verified 06/16/14 15:08 Pulmonology Consult: PE - Physical Exam Constitutional: NAD HEENT: PERRLA, moist MMs, sclera anicteric Neck: supple, full ROM Cardiovascular: RRR, no significant murmur Respiratory: clear to auscultation anteriorly Gastrointestinal: soft, non-tender, no distention, positive bowel sounds Musculoskeletal: no edema Neurological: normal sensation, moves all 4 limbs Deviation from normal: resting tremor of UE and LE Psychiatric: A&O x 3 Deviation from normal: Flat affect Pulmonology Consult: Results - Labs Result Diagrams: 12/22/17 04:35 12/22/17 04:35 Pulmonology Consult: A/P - Problem (1) Intentional lithium overdose Current Visit: No Code(s): T56.892A - TOXIC EFFECT OF OTH METALS, INTENTIONAL SELF-HARM, INIT Status: Acute Qualifiers: Encounter type: initial encounter Qualified Code(s): T56.892A - Toxic effect of other metals, intentional self-harm, initial encounter (2) PNA (pneumonia) Current Visit: No Code(s): J18.9 - PNEUMONIA, UNSPECIFIED ORGANISM Status: Acute Qualifiers: Pneumonia type: due to unspecified organism Laterality: right Lung location: lower lobe of lung Qualified Code(s): J18.1 - Lobar pneumonia, unspecified organism (3) Suicidal ideation Current Visit: No Code(s): R45.851 - SUICIDAL IDEATIONS Status: Acute (4) Alcohol abuse Current Visit: No Code(s): F10.10 - ALCOHOL ABUSE, UNCOMPLICATED Status: Chronic (5) Bipolar 2 disorder Current Visit: No Code(s): F31.81 - BIPOLAR II DISORDER Status: Chronic (6) COPD (chronic obstructive pulmonary disease) Current Visit: No Status: Chronic Qualifiers: Emphysema type: unspecified (7) Coronary artery disease Current Visit: No Code(s): I25.10 - ATHSCL HEART DISEASE OF [place] CORONARY ARTERY W/O ANG PCTRS Status: Chronic Qualifiers: Coronary Disease-Associated Artery/Lesion type: bypass graft [place] vs. transplanted heart: [place] heart Associated angina: without angina Qualified Code(s): I25.810 - Atherosclerosis of coronary artery bypass graft(s) without angina pectoris (8) Depression Current Visit: No Code(s): F32.9 - MAJOR DEPRESSIVE DISORDER, SINGLE EPISODE, UNSPECIFIED Status: Chronic Qualifiers: Depression Type: major depressive disorder Major depression recurrence: recurrent Active/Remission status: currently active Psychotic features: without psychotic features (9) Hypertension Current Visit: No Code(s): I10 - ESSENTIAL (PRIMARY) HYPERTENSION Status: Chronic Qualifiers: Hypertension type: essential hypertension Qualified Code(s): I10 - Essential (primary) hypertension (10) Macrocytic anemia Current Visit: No Code(s): D53.9 - NUTRITIONAL ANEMIA, UNSPECIFIED Status: Chronic (11) Parkinson disease Current Visit: No Code(s): G20 - PARKINSON'S DISEASE Status: Chronic - Time Time: 50% of the time was spent in coordination of care (as documented) at patient's floor/unit and/or counseling patient. Time with Patient: greater than 50 minutes - Plan Plan: Myrtle Overdose - Continue to follow Li levels, this am 2.9 - Monitor renal function and provide IVF at a rate similar to hourly output. Provide pressure support as needed - Monitor on tele Hypotension - secondary nephrogenic DI following Li overdose. Treat as above PNA - continue abx - respiratory status is good. No trouble maintaining O2 sat at this time etoh abuse - ASE protocol w/ativan as needed for symptoms - recommend rehab after detox period Hypokalemia - replace PO SI - Consult MHMR when medically stable - Pt will need sitter BPD - currently holding Li due to OD. Patient will need outpatient follow up and consideration of changing medical management due to concern of future OD MDD - MHMR consult when stable. Pt will need outpt management CAD - continue plavix COPD - stable, at baseline Macrocytic anemia - secondary to etoh abuse. Stable and symptomatic at this time Dispo: Pt doing well with IVF and pressure support. Expect 1-2 days in ICU. Following hospitalization pt will need extensive follow up and management for SI and psych management. <Hardeep Bhatt M - Last Filed: 12/22/17 12:35> Pulmonology Consult: HPI - History of Present Illness HPI: ROMAN STOUT is a 67 year-old M Pulmonology Consult: Meds - Medications Medications: Current Medications Al Hydroxide/Mg Hydroxide (Maalox) 30 ml PO Q4H PRN PRN Reason: Heartburn or Indigestion Albuterol Sulfate (Proventil Hfa) 2 puff INH Q4H PRN PRN Reason: Dyspnea Albuterol/Ipratropium (Duoneb) 3 ml NEB QID-RT [facility] Last Admin: 12/22/17 10:59 Dose: 3 ml Aspirin (Ecotrin) 81 mg PO HS [facility] Last Admin: 12/21/17 20:44 Dose: 81 mg Clopidogrel Bisulfate (Plavix) 75 mg PO HS [facility] Last Admin: 12/21/17 20:44 Dose: 75 mg Enoxaparin Sodium (Lovenox) 40 mg SC 0900 [facility] Last Admin: 12/22/17 09:09 Dose: 40 mg Folic Acid (Folvite) 1 mg PO DAILY [facility] Last Admin: 12/22/17 09:08 Dose: 1 mg Sodium Chloride (Normal Saline 0.9%) 1,000 mls @ 125 mls/hr IV .Q8H [facility] Last Admin: 12/22/17 05:58 Dose: 1,000 mls Piperacillin Sod/Tazobactam (Sod 3.375 gm/ Sodium Chloride) 100 mls @ 200 mls/ hr IVPB Q6HR [facility] Last Admin: 12/22/17 05:55 Dose: 100 mls Norepinephrine Bitartrate (Levophed) 250 mls @ 0 mls/hr IVPB INF PRN; Protocol PRN Reason: Blood Pressure Last Admin: 12/22/17 01:12 Dose: 250 mls Lorazepam (Ativan) 2 mg SLOW IVP Q6H PRN PRN Reason: Anxiety/Agitation Last Admin: 12/22/17 07:36 Dose: 2 mg Multivitamins (Theragran) 1 tab PO DAILY [facility] Last Admin: 12/22/17 09:08 Dose: 1 tab Potassium Chloride (K-Dur) 40 meq PO 1200 [facility] Stop: 12/22/17 14:00 Sodium Chloride (Flush - Normal Saline) 10 ml IVF Q12HR [facility] Last Admin: 12/22/17 10:03 Dose: Not Given Sodium Chloride (Flush - Normal Saline) 10 ml IVF PRN PRN PRN Reason: Saline Flush Thiamine HCl (Thiamine) 100 mg PO DAILY [facility] Last Admin: 12/22/17 09:08 Dose: 100 mg Pulmonology Consult: Results - Labs Result Diagrams: 12/22/17 04:35 12/22/17 12:12 Pulmonology Consult: A/P - Time Time: 50% of the time was spent in coordination of care (as documented) at patient's floor/unit and/or counseling patient. Attending Addendum - Attending Addendum Date/Time: 12/22/17 1690 I personally evaluated the patient and discussed the management with Dr. Edwards I agree with the History, Examination, Assessment and Plan documented above with any addition or exceptions noted below. 70 minutes have been devoted to this patient in various activities. I personally reviewed all imaging studies and laboratory data noted within this document. For fifty percent of this time, I was interacting with the patient at the bedside or coordinating care with the care team. For the remainder of the time I was immediately available to the patient in the hospital unit.
[2017-12-22] MEDS: Lorazepam 2 MG/ML VIAL SLOW IVP PRN ×2 (07:36→20:29)
--- NOTE | 2017-12-22 08:08 | RAD ---
PORTABLE CHEST 1 VIEW: Date: 12/22/17 Time: 0010 hours HISTORY: Central line placement. FINDINGS/IMPRESSION: Comparison made with exam from previous day. Interval placement of a right internal jugular central line is seen with tip in the projection of the SVC. No pneumothorax is seen. POS: [facility]
[2017-12-22] MEDS ORDERED: Folic Acid 1 MG TAB PO SCH (09:00)
[2017-12-22] MEDS ORDERED: Multivit, Therapeutic 1 TAB PO SCH (09:00)
[2017-12-22] MEDS: Enoxaparin Sodium 40 MG/0.4 ML SYRINGE SC SCH (09:09)
[2017-12-22] MEDS ORDERED: Potassium Chloride 20 MEQ TAB PO SCH (12:00)
[2017-12-22 12:33] LABS: Anion Gap 8 mmol/L (10-20); BUN (Urea Nitrogen) 6 mg/dL (8.4-25.7); Calc. Creatinine Clearance 98 mL/min (70-130); Carbon Dioxide 22 mmol/L (23-31); Chloride 111 mmol/L (98-107); Estimated GFR-MDRD 89; Glucose 135 mg/dL (80-115); Potassium 3.1 mmol/L (3.5-5.1); Sodium 138 mmol/L (136-145)
--- NOTE | 2017-12-22 13:45 | EKG ---
Test Reason : Blood Pressure : / mmHG Vent. Rate : 078 BPM Atrial Rate : 078 BPM P-R Int : 170 ms QRS Dur : 098 ms QT Int : 430 ms P-R-T Axes : 051 -73 024 degrees QTc Int : 490 ms Normal sinus rhythm Left axis deviation Nonspecific ST and T wave abnormality Prolonged QT Abnormal ECG Confirmed by FRANCISCA MARQUEZ ([id number]) on 12/22/2017 1:45:31 PM Referred By: Roberta OLIVEROS Confirmed By:FRANCISCA MARQUEZ
--- NOTE | 2017-12-22 17:48 | PDOC.PN ---
- Subjective Encounter Start Date: 12/22/17 Encounter Start Time: 17:00 Subjective: f/u for hypotension and LLL PNA, sepsis with CCU transfer overnight -: requiring Levophed and IVF resuscitation. Feels better overall. - Objective Resuscitation Status: Resuscitation Status FULL:Full Resuscitation MAR Reviewed: Yes Vital Signs & Weight: Vital Signs (12 hours) Temp Pulse Resp BP Pulse Ox 12/22/17 16:00 99.1 F 12/22/17 15:15 69 18 99 12/22/17 12:00 92/60 12/22/17 11:00 99 F 12/22/17 10:59 70 18 99 12/22/17 08:41 99 12/22/17 08:38 83 20 98 12/22/17 08:00 99.3 F 82 27 H 113/69 97 12/22/17 07:00 99.3 F Weight Admit Weight 178 lb Weight 178 lb Most Recent Monitor Data Heart Rate from ECG 65 NIBP 109/64 NIBP BP-Mean 70 Respiration from ECG 5 SpO2 96 I&O: 12/21/17 12/22/17 12/23/17 06:59 06:59 06:59 Intake Total 4999.3 180 Output Total 1025 2115 Balance 3974.3 -1935 Result Diagrams: 12/22/17 04:35 12/22/17 12:12 Additional Labs: Laboratory Tests 12/20/17 12/20/17 12/20/17 21:18 22:11 22:11 WBC Hgb Potassium Magnesium 2.3 U Benzodiazepines Scrn [place] 2.834 H* Plasma Alcohol 211 H 12/21/17 12/21/17 12/21/17 00:01 02:56 02:56 WBC Hgb Potassium Magnesium U Benzodiazepines Scrn Detected H [place] 5.916 H* Plasma Alcohol 90 H 12/21/17 12/21/17 12/21/17 22:11 22:11 22:11 WBC 9.7 Hgb 12.9 L Potassium 3.0 L Magnesium U Benzodiazepines Scrn [place] 3.264 H* Plasma Alcohol 12/22/17 12/22/17 04:35 04:35 WBC Hgb Potassium 2.8 L* Magnesium U Benzodiazepines Scrn [place] 2.914 H* Plasma Alcohol Radiology Reviewed by me: Yes (PCXR - LLL infiltrate) EKG Reviewed by me: Yes (Tele - SR) Phys Exam - Physical Examination alert, responds to questions HEENT: PERRLA, sclera anicteric, oral pharynx no lesions Neck: no nodes, no JVD, supple, full ROM few scattered rhonchi S1, S2 Cardiovascular: RRR, no significant murmur, no rub, gallop Gastrointestinal: soft, non-tender, no distention, positive bowel sounds Musculoskeletal: no edema, pulses present resting tremors Neurological: normal sensation, moves all 4 limbs flat affect Psychiatric: A&O x 3 Skin: normal turgor, cap refill <2 seconds Dx/Plan (1) Sepsis Code(s): A41.9 - SEPSIS, UNSPECIFIED ORGANISM Status: Acute Comment: Suspected from potential PNA, received Zosyn and Vancomycin, continue IVF's (2) PNA (pneumonia) Code(s): J18.9 - PNEUMONIA, UNSPECIFIED ORGANISM Status: Acute Qualifiers: Pneumonia type: due to unspecified organism Laterality: left Lung location: lower lobe of lung Qualified Code(s): J18.1 - Lobar pneumonia, unspecified organism Comment: Suspected with initial mgmt with Vancomycin and Zosyn, pulmonary support, O2 (3) Intentional lithium overdose Code(s): T56.892A - TOXIC EFFECT OF OTH METALS, INTENTIONAL SELF-HARM, INIT Status: Acute Qualifiers: Encounter type: initial encounter Qualified Code(s): T56.892A - Toxic effect of other metals, intentional self-harm, initial encounter Comment: Continue IVF's, MR consult when medically stable, hold [place] (4) Suicidal ideation Code(s): R45.851 - SUICIDAL IDEATIONS Status: Acute Comment: Apparently recurrent ideation and hx of similar presentation, see #1, sitter 1:1 (5) Alcohol abuse Code(s): F10.10 - ALCOHOL ABUSE, UNCOMPLICATED Status: Chronic Comment: Ativan 2mg IV q6h prn withdrawal sx, MVI, Thiamine, Folate (6) Bipolar 2 disorder Code(s): F31.81 - BIPOLAR II DISORDER Status: Chronic Comment: Supportive mgmt (7) Depression Code(s): F32.9 - MAJOR DEPRESSIVE DISORDER, SINGLE EPISODE, UNSPECIFIED Status : Chronic Qualifiers: Depression Type: major depressive disorder Major depression recurrence: recurrent Active/Remission status: currently active Psychotic features: without psychotic features Comment: [facility] for disposition - Plan continue antibiotics, PT/OT, bilingual social worker, DVT proph w/SCDs Continue Levophed gtt, wean as clinically indicated -: Ativan 2mg IV q6h prn withdrawal symptoms -: Continue IVF's -: KCL replacement -: AM lab: BMP, CBC * .
[2017-12-22] MEDS: Clopidogrel Bisulfate 75 MG TAB PO SCH (20:29)
[2017-12-22] MEDS: Aspirin 81 mg Enteric Coated Tablet PO SCH (20:29)
[2017-12-22] MEDS: Vasopressin 40 UNIT, Admixture Fee 1 EACH in Sodium Chloride 0.9% 100 ML IV SCH (21:45)
[2017-12-23] MEDS: Lorazepam 2 MG/ML VIAL SLOW IVP PRN ×2 (01:37→08:15)
[2017-12-23] MEDS ORDERED: Diazepam 5 MG TAB PO PRN (02:55)
[2017-12-23] MEDS ORDERED: Diazepam 5 MG TAB PO SCH (03:00)
[2017-12-23] MEDS ORDERED: Thiamine HCl 200 MG/2 ML VIAL IM SCH (03:00)
[2017-12-23] MEDS: Sodium Chloride 0.9% 1,000 ML IV SCH ×2 (03:20→10:27)
[2017-12-23 05:22] LABS: Band 15 % (5-11); Eosinophils 5 % (0-10); Hemoglobin 11.1 g/dL (14.0-18.0); Lymphocytes 2 % (21-51); MDiff Complete? YES; Mean Corpuscular HGB CONC 33.6 g/dL (32.0-36.0); Mean Corpuscular Hemoglobin 35.9 pg (27.0-31.0); Mean Platelet Volume 8.2 fL (7.4-10.4); Monocytes 7 % (0-10); Neutrophil 71 % (42-75); Platelet Count 153 thou/uL (130-400); RBC Distribution Width 12.7 % (11.5-14.5); White Blood Cell (WBC) Count 12.3 thou/uL (4.8-10.8)
[2017-12-23 05:31] LABS: Anion Gap 11 mmol/L (10-20); BUN (Urea Nitrogen) 4 mg/dL (8.4-25.7); Calc. Creatinine Clearance 109 mL/min (70-130); Carbon Dioxide 22 mmol/L (23-31); Chloride 107 mmol/L (98-107); Estimated GFR-MDRD Greater than 90; Glucose 154 mg/dL (80-115); Potassium 3.1 mmol/L (3.5-5.1); Sodium 137 mmol/L (136-145)
[2017-12-23] MEDS ORDERED: Furosemide 20 MG/2 ML VIAL SLOW IVP SCH (06:30)
[2017-12-23] MEDS: Potassium Chloride 20 MEQ TAB PO SCH ×2 (06:42→11:26)
[2017-12-23] MEDS ORDERED: Potassium Chloride 20 MEQ TAB PO SCH (07:00)
--- NOTE | 2017-12-23 08:55 | PDOC.PN ---
- Subjective Encounter Start Date: 12/23/17 Encounter Start Time: 08:53 Subjective: reports that he feels weak and tired and SOB. -: hurts all over -: decompensated yesterday requiring CCU transfer w pressors/Bipap - Objective Resuscitation Status: Resuscitation Status FULL:Full Resuscitation MAR Reviewed: Yes Vital Signs & Weight: Vital Signs (12 hours) Temp Pulse Resp BP Pulse Ox 12/23/17 07:44 99.3 F 65 22 H 100 12/23/17 07:38 123/68 12/23/17 07:11 65 12/23/17 07:00 99.3 F 12/23/17 06:14 110 H 28 H 12/23/17 04:00 97.9 F 12/23/17 01:54 96 24 H 97 12/23/17 00:00 97.2 F L Weight Admit Weight 178 lb Weight 178 lb Most Recent Monitor Data Heart Rate from ECG 52 NIBP 103/63 NIBP BP-Mean 72 Respiration from ECG 20 SpO2 100 I&O: 12/22/17 12/23/17 12/24/17 06:59 06:59 06:59 Intake Total 4999.3 4311 Output Total 1025 3770 520 Balance 3974.3 541 -520 Result Diagrams: 12/23/17 04:15 12/23/17 04:15 Additional Labs: Laboratory Tests 12/20/17 12/20/17 12/21/17 22:11 22:11 02:56 Potassium 4.3 [place] 2.834 H* Plasma Alcohol 90 H 12/21/17 12/21/17 12/21/17 02:56 22:11 22:11 Potassium 3.0 L [place] 5.916 H* 3.264 H* Plasma Alcohol 12/22/17 12/22/17 12/22/17 04:35 04:35 12:12 Potassium 2.8 L* 3.1 L [place] 2.914 H* Plasma Alcohol 12/23/17 12/23/17 04:15 04:15 Potassium 3.1 L [place] 1.841 H Plasma Alcohol labs reviewed Phys Exam - Physical Examination pale and weak looking.AAOX3 HEENT: PERRLA, sclera anicteric, oral pharynx no lesions Neck: no nodes, no JVD, supple, full ROM Respiratory: no rales, no rhonchi, wheezing present, clear to auscultation bilateral Cardiovascular: RRR, no significant murmur Gastrointestinal: soft, non-tender, no distention, positive bowel sounds Musculoskeletal: no edema, pulses present Neurological: non-focal, normal sensation, moves all 4 limbs Deviation from normal: eczematous rash on limbs Dx/Plan (1) Acute respiratory failure with hypoxia Code(s): J96.01 - ACUTE RESPIRATORY FAILURE WITH HYPOXIA Status: Acute Comment: on Bipap.s/p lasix x1 today (2) Sepsis Code(s): A41.9 - SEPSIS, UNSPECIFIED ORGANISM Status: Acute Comment: Suspected from potential PNA, received Zosyn and Vancomycin, continue IVF's (3) Intentional lithium overdose Code(s): T56.892A - TOXIC EFFECT OF OTH METALS, INTENTIONAL SELF-HARM, INIT Status: Acute Qualifiers: Encounter type: initial encounter Qualified Code(s): T56.892A - Toxic effect of other metals, intentional self-harm, initial encounter Comment: Continue IVF's, MHMR consult when medically stable, hold [place] (4) PNA (pneumonia) Code(s): J18.9 - PNEUMONIA, UNSPECIFIED ORGANISM Status: Acute Qualifiers: Pneumonia type: due to unspecified organism Laterality: left Lung location: lower lobe of lung Qualified Code(s): J18.1 - Lobar pneumonia, unspecified organism Comment: Suspected with initial mgmt with Vancomycin and Zosyn, pulmonary support, O2 (5) [place]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 Status: Acute (6) Suicidal ideation Code(s): R45.851 - SUICIDAL IDEATIONS Status: Acute Comment: Apparently recurrent ideation and hx of similar presentation, see #1, sitter 1:1 (7) COPD exacerbation Code(s): J44.1 - CHRONIC OBSTRUCTIVE PULMONARY DISEASE W (ACUTE) EXACERBATION Status: Suspected (8) Alcohol abuse Code(s): F10.10 - ALCOHOL ABUSE, UNCOMPLICATED Status: Chronic Comment: Ativan 2mg IV q6h prn withdrawal sx, MVI, Thiamine, Folate (9) Bipolar 2 disorder Code(s): F31.81 - BIPOLAR II DISORDER Status: Chronic Comment: Supportive mgmt (10) COPD (chronic obstructive pulmonary disease) Status: Chronic Qualifiers: Emphysema type: unspecified (11) Coronary artery disease Code(s): I25.10 - ATHSCL HEART DISEASE OF [place] CORONARY ARTERY W/O ANG PCTRS Status: Chronic Qualifiers: Coronary Disease-Associated Artery/Lesion type: bypass graft [place] vs. transplanted heart: [place] heart Associated angina: without angina Qualified Code(s): I25.810 - Atherosclerosis of coronary artery bypass graft(s) without angina pectoris (12) Depression Code(s): F32.9 - MAJOR DEPRESSIVE DISORDER, SINGLE EPISODE, UNSPECIFIED Status : Chronic Qualifiers: Depression Type: major depressive disorder Major depression recurrence: recurrent Active/Remission status: currently active Psychotic features: without psychotic features Comment: [facility] for disposition (13) Dyslipidemia Code(s): E78.5 - HYPERLIPIDEMIA, UNSPECIFIED Status: Chronic (14) Hypertension Code(s): I10 - ESSENTIAL (PRIMARY) HYPERTENSION Status: Chronic Qualifiers: Hypertension type: essential hypertension Qualified Code(s): I10 - Essential (primary) hypertension (15) Macrocytic anemia Code(s): D53.9 - NUTRITIONAL ANEMIA, UNSPECIFIED Status: Chronic (16) Parkinson disease Code(s): G20 - PARKINSON'S DISEASE Status: Chronic - Plan continue antibiotics, respiratory therapy, incentive spirometry, out of bed/ ambulate, DVT proph w/SCDs cont supportive care. -: started on precedex for DTs.PRN Ativan -: BP improved. wean off of pressors as tolerated -: cont IVF for now.monitor urine output -: daily Li levels .improving.MHMR when stable * . Review of Systems - Review of Systems Constitutional: chills, weakness, malaise. negative: fever, sweats, other ENT: negative: Ear Pain, Ear Discharge, Nose Pain, Nose Discharge, Nose Congestion, Mouth Pain, Mouth Swelling, Throat Pain, Throat Swelling, Other Respiratory: Dry, Shortness of Breath. negative: Cough, Hemoptysis, SOB with Excertion, Pleuritic Pain, Sputum, Wheezing Cardiovascular: negative: chest pain, palpitations, orthopnea, paroxysmal nocturnal dyspnea, edema, light headedness, other Gastrointestinal: negative: Nausea, Vomiting, Abdominal Pain, Diarrhea, Constipation, Melena, Hematochezia, Other Genitourinary: negative: Dysuria, Frequency, Incontinence, Hematuria, Retention , Other Musculoskeletal: negative: Neck Pain, Shoulder Pain, Arm Pain, Back Pain, Hand Pain, Leg Pain, Foot Pain, Other Skin: negative: Rash, Lesions, Amado, Bruising, Other Neurological: negative: Weakness, Numbness, Incoordination, Change in Speech, Confusion, Seizures, Other - Medications/Allergies Allergies/Adverse Reactions: Allergies Allergy/AdvReac Type Severity Reaction Status Date / Time No Known Allergies Allergy Verified 06/16/14 15:08 Medications: Current Medications Al Hydroxide/Mg Hydroxide (Maalox) 30 ml PO Q4H PRN PRN Reason: Heartburn or Indigestion Last Admin: 12/22/17 12:49 Dose: 30 ml Albuterol Sulfate (Proventil Hfa) 2 puff INH Q4H PRN PRN Reason: Dyspnea Albuterol/Ipratropium (Duoneb) 3 ml NEB QID-RT [facility] Last Admin: 12/23/17 06:14 Dose: 3 ml Aspirin (Ecotrin) 81 mg PO HS [facility] Last Admin: 12/22/17 20:29 Dose: 81 mg Clopidogrel Bisulfate (Plavix) 75 mg PO HS [facility] Last Admin: 12/22/17 20:29 Dose: 75 mg Diazepam (Valium) 10 mg PO Q4H PRN PRN Reason: FOR ASE 10 OR GREATER Stop: 12/24/17 04:00 Diazepam (Valium) 5 mg PO Q4H PRN PRN Reason: FOR ASE 10 OR GREATER Enoxaparin Sodium (Lovenox) 40 mg SC 0900 [facility] Last Admin: 12/22/17 09:09 Dose: 40 mg Folic Acid (Folvite) 1 mg PO DAILY [facility] Furosemide (Lasix) 20 mg SLOW IVP NOW [facility] Stop: 12/23/17 09:00 Last Admin: 12/23/17 06:39 Dose: 20 mg Sodium Chloride (Normal Saline 0.9%) 1,000 mls @ 125 mls/hr IV .Q8H [facility] Last Admin: 12/23/17 03:20 Dose: 1,000 mls Norepinephrine Bitartrate (Levophed) 250 mls @ 0 mls/hr IVPB INF PRN; Protocol PRN Reason: Blood Pressure Last Admin: 12/22/17 20:33 Dose: 250 mls Vasopressin 40 unit/Miscellaneous Medication 1 each/ Sodium Chloride 102 mls @ 0 mls/hr IV INF [facility]; Protocol Last Admin: 12/22/17 21:45 Dose: 102 mls Iron/Minerals/Multivitamins (Theragran M) 1 tab PO DAILY [facility] Lorazepam (Ativan) 2 mg SLOW IVP Q6H PRN PRN Reason: Anxiety/Agitation Last Admin: 12/23/17 08:15 Dose: 2 mg Magnesium Oxide (Magnesium Oxide) 400 mg PO DAILY [facility] Potassium Chloride (K-Dur) 40 meq PO Q4H [facility] Stop: 12/23/17 11:01 Last Admin: 12/23/17 06:42 Dose: 40 meq Sodium Chloride (Flush - Normal Saline) 10 ml IVF Q12HR [facility] Last Admin: 12/22/17 20:29 Dose: 10 ml Sodium Chloride (Flush - Normal Saline) 10 ml IVF PRN PRN PRN Reason: Saline Flush Thiamine HCl (Thiamine) 100 mg PO DAILY [facility] Last Admin: 12/22/17 09:08 Dose: 100 mg
[2017-12-23] MEDS: Folic Acid 1 MG TAB PO SCH (09:07)
[2017-12-23] MEDS: Enoxaparin Sodium 40 MG/0.4 ML SYRINGE SC SCH (09:07)
[2017-12-23] MEDS: Multivitamin W/ Minerals 1 TAB PO SCH (09:07)
[2017-12-23] MEDS ORDERED: DEXMEDETOMIDINE IVPB SCH (09:45)
[2017-12-23] MEDS ORDERED: ADMIXTURE FEE IVPB SCH (09:45)
[2017-12-23] MEDS ORDERED: SODIUM CHLORIDE IVPB SCH (09:45)
--- NOTE | 2017-12-23 10:51 | PRG ---
DATE OF SERVICE: 12/23/2017 SERVICE: Pulmonary Medicine. INTERVAL HISTORY: Overnight, the patient developed increasing respiratory failure. He was increasingly wet. As such, we provided him with a dose of Lasix and titrated BiPAP at bedside. This has subsequently been deescalated now. He had a significant urine output with this. Otherwise, there has been no interval change to his condition. He started going into DTs. He is having episodes of tremulousness. He is not oriented x3. PHYSICAL EXAMINATION: VITAL SIGNS: Afebrile, pulse 57, blood pressure 108/71, respirations 23, saturation 99% back on 3 liters nasal cannula. GENERAL: Patient is awake and alert. He is oriented x1. HEENT: Normocephalic, atraumatic. Sclerae are white. Conjunctivae pink. Oral and nasal mucosa is moist and without lesions. LUNGS: Bilateral crackles are present. There is no prolonged expiratory phase or wheezing appreciated. HEART: Normal rate, regular. ABDOMEN: Soft, nontender, nondistended. Bowel sounds are positive. MUSCULOSKELETAL: No cyanosis or clubbing. There is no pitting in the bilateral lower extremities. NEUROLOGIC: Grossly nonfocal. LABORATORY DATA: WBC 12.3, hemoglobin 11.1, platelets 153,000. Band count is increasing to 15%. Potassium 3.1. Basic metabolic profile is essentially unremarkable otherwise. His creatinine is 0.77. [place] level has dropped to 1.84. ASSESSMENT: 1. Acute hypoxic respiratory failure. 2. Intentional drug overdose with lithium. 3. Nephrogenic diabetes insipidus. 4. Community-acquired pneumonia. 5. Delirium tremens. DISCUSSION AND PLAN: We are going to get him replace his potassium. We will put him on Precedex to see if we can level him off a little bit. His urine output is starting to drop off a little bit. As such, we will discontinue the IV fluids altogether for the next 24 hours. We did escalate and deescalate BiPAP at bedside. Hopefully, in the next 24 hours, his urine output will start to settle down. His mentation will allow for us to wean the Precedex. The patient will certainly remain in the ICU for the time being. MAI
[2017-12-23] MEDS: Dexmedetomidine 400 MCG, Admixture Fee 1 EACH in Sodium Chloride 0.9% 96 ML IVPB SCH (14:40)
[2017-12-23] MEDS: Vasopressin 40 UNIT, Admixture Fee 1 EACH in Sodium Chloride 0.9% 100 ML IV SCH (14:40)
[2017-12-23] MEDS: Clopidogrel Bisulfate 75 MG TAB PO SCH (20:56)
[2017-12-23] MEDS: Aspirin 81 mg Enteric Coated Tablet PO SCH (20:56)
[2017-12-24] MEDS ORDERED: Diazepam 5 MG TAB PO PRN (04:00)
[2017-12-24 04:44] LABS: Anion Gap 13 mmol/L (10-20); BUN (Urea Nitrogen) 5 mg/dL (8.4-25.7); Calc. Creatinine Clearance 106 mL/min (70-130); Calcium 8.9 mg/dL (7.8-10.44); Carbon Dioxide 23 mmol/L (23-31); Chloride 105 mmol/L (98-107); Estimated GFR-MDRD Greater than 90; Glucose 147 mg/dL (80-115); Magnesium 1.8 mg/dL (1.6-2.6); Potassium 3.8 mmol/L (3.5-5.1); Sodium 137 mmol/L (136-145)
[2017-12-24 04:47] LABS: Phosphorus 1.4 mg/dL (2.3-4.7)
[2017-12-24] MEDS: Sodium Chloride 0.9% 1,000 ML IV SCH ×3 (06:22→15:09)
[2017-12-24] MEDS ORDERED: Potassium Phosphate 21 MMOL in Sodium Chloride 0.9% 250 ML 250 ML IVPB SCH (06:45)
[2017-12-24] MEDS: Enoxaparin Sodium 40 MG/0.4 ML SYRINGE SC SCH (09:19)
[2017-12-24] MEDS: Multivitamin W/ Minerals 1 TAB PO SCH (09:19)
[2017-12-24] MEDS: Folic Acid 1 MG TAB PO SCH (09:19)
[2017-12-24] MEDS: Magnesium Oxide 400 MG TAB PO SCH (09:19)
[2017-12-24] MEDS: Dexmedetomidine 400 MCG, Admixture Fee 1 EACH in Sodium Chloride 0.9% 96 ML IVPB SCH (09:57)
[2017-12-24] MEDS ORDERED: Magnesium 2 GM/NS 0.9% 100 ML 2 GM in Premix Bag 1 BAG IVPB SCH (10:45)
--- NOTE | 2017-12-24 10:57 | PRG ---
DATE OF SERVICE: 12/24/2017 SERVICE: Pulmonary Medicine. INTERVAL HISTORY: The patient is doing fine from a respiratory standpoint. He is breathing comforta puneet. With the Precedex, his mentation is cool, calm and collected. There has been no interval thomas e to his condition. PHYSICAL EXAMINATION: VITAL SIGNS: Afebrile, pulse 73, blood pressure 160/111, respirations 24, saturation 98% on 2 liters nasal cannula. GENERAL: The patient is awake and alert, in no apparent distress. He wakes up comfortably. He foll ows all commands. LUNGS: Excellent air entry. There is no prolonged expiratory phase. I do not appreciate any wheezi ng, rhonchi, or crackles today. HEART: Normal rate, regular. ABDOMEN: Soft, nontender, nondistended. Bowel sounds are positive. MUSCULOSKELETAL: No cyanosis or clubbing. There is no pitting in the bilateral lower extremities. NEUROLOGIC: Grossly nonfocal. LABORATORY DATA: WBC 12.3, hemoglobin 11.1, platelets 153,000. Band count is 15%. Phosphorus 1.4, potassium 3.8. Magnesium 1.8. [place] has returned to the normal range of 1.1. ASSESSMENT: 1. Acute hypoxic respiratory failure. 2. Intentional drug overdose with lithium. 3. Nephrogenic diabetes insipidus. 4. Delirium tremens. 5. Community-acquired pneumonia. DISCUSSION AND PLAN: We are going to wean the Precedex and Levophed as tolerated. He remains on IV fluids. Pulmonary and Critical Care will continue to follow along while the patient remains in this location.
[2017-12-24] MEDS: Norepinephrine 8 MG/250 ML BAG IVPB PRN (15:06)
--- NOTE | 2017-12-24 15:56 | PDOC.PN ---
- Subjective Encounter Start Date: 12/24/17 Encounter Start Time: 15:54 Subjective: feels better.no acute events -: RN reported that pt is mainatanied on both levophed & precedex for now - Objective Resuscitation Status: Resuscitation Status FULL:Full Resuscitation MAR Reviewed: Yes Vital Signs & Weight: Vital Signs (12 hours) Temp Pulse Resp BP Pulse Ox 12/24/17 14:45 69 21 H 12/24/17 12:00 98/54 L 12/24/17 11:00 98.7 F 12/24/17 10:44 64 18 12/24/17 07:08 98.3 F 71 27 H 93 L 12/24/17 07:06 104/48 L 12/24/17 07:00 98.3 F 12/24/17 06:32 69 12 12/24/17 04:00 98.4 F Weight Admit Weight 178 lb Weight 178 lb Most Recent Monitor Data Heart Rate from ECG 70 NIBP 111/61 NIBP BP-Mean 76 Respiration from ECG 5 SpO2 95 I&O: 12/23/17 12/24/17 12/25/17 06:59 06:59 06:59 Intake Total 4311 1701.7 180 Output Total 3770 2995 1680 Balance 541 -1293.3 -1500 Result Diagrams: 12/23/17 04:15 12/24/17 03:35 Additional Labs: Laboratory Tests 12/20/17 12/21/17 12/21/17 22:11 02:56 22:11 Phosphorus [place] 2.834 H* 5.916 H* 3.264 H* 12/22/17 12/23/17 12/24/17 04:35 04:15 03:35 Phosphorus 1.4 L [place] 2.914 H* 1.841 H labs reviewed Laboratory Tests 12/24/17 08:49 [place] 1.122 Phys Exam - Physical Examination Constitutional: NAD HEENT: PERRLA, moist MMs, sclera anicteric, oral pharynx no lesions Neck: no nodes, no JVD, supple, full ROM Respiratory: no wheezing, no rales, no rhonchi, clear to auscultation bilateral Cardiovascular: RRR, no significant murmur, no rub Gastrointestinal: soft, non-tender, no distention, positive bowel sounds Musculoskeletal: no edema, pulses present Neurological: non-focal, normal sensation, moves all 4 limbs Psychiatric: normal affect, A&O x 3 Skin: no rash Dx/Plan (1) Sepsis Code(s): A41.9 - SEPSIS, UNSPECIFIED ORGANISM Status: Acute Comment: Suspected from potential PNA, received Zosyn and Vancomycin, continue IVF's (2) Intentional lithium overdose Code(s): T56.892A - TOXIC EFFECT OF OTH METALS, INTENTIONAL SELF-HARM, INIT Status: Acute Qualifiers: Encounter type: initial encounter Qualified Code(s): T56.892A - Toxic effect of other metals, intentional self-harm, initial encounter Comment: Continue IVF's, MHMR consult when medically stable, hold [place] (3) Acute respiratory failure with hypoxia Code(s): J96.01 - ACUTE RESPIRATORY FAILURE WITH HYPOXIA Status: Acute Comment: Improved (4) PNA (pneumonia) Code(s): J18.9 - PNEUMONIA, UNSPECIFIED ORGANISM Status: Acute Qualifiers: Pneumonia type: due to unspecified organism Laterality: left Lung location: lower lobe of lung Qualified Code(s): J18.1 - Lobar pneumonia, unspecified organism Comment: Suspected with initial mgmt with Vancomycin and Zosyn, pulmonary support, O2 (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 Status: Acute (6) Suicidal ideation Code(s): R45.851 - SUICIDAL IDEATIONS Status: Acute Comment: Apparently recurrent ideation and hx of similar presentation, see #1, sitter 1:1 (7) COPD exacerbation Code(s): J44.1 - CHRONIC OBSTRUCTIVE PULMONARY DISEASE W (ACUTE) EXACERBATION Status: Suspected (8) Alcohol abuse Code(s): F10.10 - ALCOHOL ABUSE, UNCOMPLICATED Status: Chronic Comment: Ativan 2mg IV q6h prn withdrawal sx, MVI, Thiamine, Folate (9) Bipolar 2 disorder Code(s): F31.81 - BIPOLAR II DISORDER Status: Chronic Comment: Supportive mgmt (10) COPD (chronic obstructive pulmonary disease) Status: Chronic Qualifiers: Emphysema type: unspecified (11) Coronary artery disease Code(s): I25.10 - ATHSCL HEART DISEASE OF [place] CORONARY ARTERY W/O ANG PCTRS Status: Chronic Qualifiers: Coronary Disease-Associated Artery/Lesion type: bypass graft [place] vs. transplanted heart: [place] heart Associated angina: without angina Qualified Code(s): I25.810 - Atherosclerosis of coronary artery bypass graft(s) without angina pectoris (12) Depression Code(s): F32.9 - MAJOR DEPRESSIVE DISORDER, SINGLE EPISODE, UNSPECIFIED Status : Chronic Qualifiers: Depression Type: major depressive disorder Major depression recurrence: recurrent Active/Remission status: currently active Psychotic features: without psychotic features Comment: [facility] for disposition (13) Dyslipidemia Code(s): E78.5 - HYPERLIPIDEMIA, UNSPECIFIED Status: Chronic (14) Hypertension Code(s): I10 - ESSENTIAL (PRIMARY) HYPERTENSION Status: Chronic Qualifiers: Hypertension type: essential hypertension Qualified Code(s): I10 - Essential (primary) hypertension (15) Macrocytic anemia Code(s): D53.9 - NUTRITIONAL ANEMIA, UNSPECIFIED Status: Chronic (16) Parkinson disease Code(s): G20 - PARKINSON'S DISEASE Status: Chronic - Plan continue antibiotics, PT/OT, respiratory therapy, incentive spirometry, out of bed/ambulate, DVT proph w/SCDs Li levels normal. -: cont supportive care. empiric Abx. -: cont precedex for Dts.levophed to combat low BP readings -: am labs -: [facility] when stable for SI * . Review of Systems - Review of Systems Constitutional: weakness, malaise Respiratory: negative: Cough, Dry, Shortness of Breath, Hemoptysis, SOB with Excertion, Pleuritic Pain, Sputum, Wheezing Cardiovascular: negative: chest pain, palpitations, orthopnea, paroxysmal nocturnal dyspnea, edema, light headedness, other Gastrointestinal: negative: Nausea, Vomiting, Abdominal Pain, Diarrhea, Constipation, Melena, Hematochezia, Other Genitourinary: negative: Dysuria, Frequency, Incontinence, Hematuria, Retention , Other Musculoskeletal: negative: Neck Pain, Shoulder Pain, Arm Pain, Back Pain, Hand Pain, Leg Pain, Foot Pain, Other Skin: negative: Rash, Lesions, Amado, Bruising, Other Neurological: negative: Weakness, Numbness, Incoordination, Change in Speech, Confusion, Seizures, Other - Medications/Allergies Allergies/Adverse Reactions: Allergies Allergy/AdvReac Type Severity Reaction Status Date / Time No Known Allergies Allergy Verified 06/16/14 15:08 Medications: Current Medications Al Hydroxide/Mg Hydroxide (Maalox) 30 ml PO Q4H PRN PRN Reason: Heartburn or Indigestion Last Admin: 12/22/17 12:49 Dose: 30 ml Albuterol Sulfate (Proventil Hfa) 2 puff INH Q4H PRN PRN Reason: Dyspnea Albuterol/Ipratropium (Duoneb) 3 ml NEB QID-RT [facility] Last Admin: 12/24/17 14:45 Dose: 3 ml Aspirin (Ecotrin) 81 mg PO HS [facility] Last Admin: 12/23/17 20:56 Dose: 81 mg Clopidogrel Bisulfate (Plavix) 75 mg PO HS [facility] Last Admin: 12/23/17 20:56 Dose: 75 mg Diazepam (Valium) 5 mg PO Q4H PRN PRN Reason: FOR ASE 10 OR GREATER Enoxaparin Sodium (Lovenox) 40 mg SC 0900 [facility] Last Admin: 12/24/17 09:19 Dose: 40 mg Folic Acid (Folvite) 1 mg PO DAILY [facility] Last Admin: 12/24/17 09:19 Dose: 1 mg Norepinephrine Bitartrate (Levophed) 250 mls @ 0 mls/hr IVPB INF PRN; Protocol PRN Reason: Blood Pressure Last Admin: 12/24/17 15:06 Dose: 250 mls Dexmedetomidine HCl 400 mcg/Miscellaneous Medication 1 each/ Sodium Chloride 100 mls @ 0 mls/hr IVPB INF [facility]; Protocol Last Admin: 12/24/17 09:57 Dose: 100 mls Sodium Chloride (Normal Saline 0.9%) 1,000 mls @ 100 mls/hr IV .Q10H [facility] Last Admin: 12/24/17 15:09 Dose: 1,000 mls Iron/Minerals/Multivitamins (Theragran M) 1 tab PO DAILY [facility] Last Admin: 12/24/17 09:19 Dose: 1 tab Lorazepam (Ativan) 2 mg SLOW IVP Q6H PRN PRN Reason: Anxiety/Agitation Last Admin: 12/23/17 08:15 Dose: 2 mg Magnesium Oxide (Magnesium Oxide) 400 mg PO DAILY [facility] Last Admin: 12/24/17 09:19 Dose: 400 mg Sodium Chloride (Flush - Normal Saline) 10 ml IVF Q12HR [facility] Last Admin: 12/24/17 09:19 Dose: 10 ml Sodium Chloride (Flush - Normal Saline) 10 ml IVF PRN PRN PRN Reason: Saline Flush Thiamine HCl (Thiamine) 100 mg PO DAILY [facility] Last Admin: 12/24/17 09:18 Dose: 100 mg
[2017-12-24] MEDS: Aspirin 81 mg Enteric Coated Tablet PO SCH (20:59)
[2017-12-24] MEDS: Clopidogrel Bisulfate 75 MG TAB PO SCH (20:59)
[2017-12-25] MEDS: Sodium Chloride 0.9% 1,000 ML IV SCH ×2 (01:01→05:38)
[2017-12-25 05:05] LABS: Anion Gap 13 mmol/L (10-20); BUN (Urea Nitrogen) Less than 4 mg/dL (8.4-25.7); Calc. Creatinine Clearance 117 mL/min (70-130); Calcium 9.2 mg/dL (7.8-10.44); Carbon Dioxide 23 mmol/L (23-31); Chloride 109 mmol/L (98-107); Estimated GFR-MDRD Greater than 90; Glucose 125 mg/dL (80-115); Phosphorus 1.4 mg/dL (2.3-4.7); Potassium 3.6 mmol/L (3.5-5.1); Sodium 141 mmol/L (136-145)
[2017-12-25] MEDS ORDERED: Potassium Phosphate 21 MMOL in Sodium Chloride 0.9% 250 ML 250 ML IVPB SCH (05:30)
[2017-12-25] MEDS: Dexmedetomidine 400 MCG, Admixture Fee 1 EACH in Sodium Chloride 0.9% 96 ML IVPB SCH (05:32)
[2017-12-25] MEDS: Multivitamin W/ Minerals 1 TAB PO SCH (08:36)
[2017-12-25] MEDS: Magnesium Oxide 400 MG TAB PO SCH (08:36)
[2017-12-25] MEDS: Folic Acid 1 MG TAB PO SCH (08:36)
[2017-12-25] MEDS: Enoxaparin Sodium 40 MG/0.4 ML SYRINGE SC SCH (08:36)
[2017-12-25] MEDS ORDERED: chlordiazePOXIDE HCl 25 MG CAP PO SCH (15:00)
--- NOTE | 2017-12-25 15:17 | PDOC.PN ---
- Subjective Encounter Start Date: 12/25/17 Encounter Start Time: 15:15 Subjective: feels much better. h[place] stronger - Objective Resuscitation Status: Resuscitation Status FULL:Full Resuscitation MAR Reviewed: Yes Vital Signs & Weight: Vital Signs (12 hours) Temp Pulse Resp Pulse Ox 12/25/17 14:34 67 14 99 12/25/17 12:00 98.8 F 12/25/17 10:40 68 19 98 12/25/17 07:24 98.7 F 76 22 H 96 12/25/17 07:00 98.7 F 12/25/17 06:56 97 12/25/17 06:51 68 17 99 12/25/17 04:00 98.2 F Weight Admit Weight 178 lb Weight 178 lb Most Recent Monitor Data Heart Rate from ECG 70 NIBP 135/46 NIBP BP-Mean 111 Respiration from ECG 22 SpO2 98 I&O: 12/24/17 12/25/17 12/26/17 06:59 06:59 06:59 Intake Total 1701.7 2256.6 960 Output Total 2995 3225 1015 Balance -1293.3 -968.4 -55 Result Diagrams: 12/23/17 04:15 12/25/17 04:00 Additional Labs: Laboratory Tests 12/20/17 12/21/17 12/21/17 22:11 02:56 22:11 [place] 2.834 H* 5.916 H* 3.264 H* 12/22/17 12/23/17 12/24/17 04:35 04:15 08:49 [place] 2.914 H* 1.841 H 1.122 labs reviewed Phys Exam - Physical Examination Constitutional: NAD HEENT: PERRLA, moist MMs, sclera anicteric, TM's clear, oral pharynx no lesions , 2+ tonsils Neck: no nodes, no JVD, supple, full ROM Respiratory: no wheezing, no rales, no rhonchi, clear to auscultation bilateral reduced at bases Cardiovascular: RRR, no significant murmur, no rub Gastrointestinal: soft, non-tender, no distention, positive bowel sounds Musculoskeletal: no edema, pulses present Neurological: non-focal, normal sensation, moves all 4 limbs Psychiatric: normal affect, A&O x 3 Dx/Plan (1) Sepsis Code(s): A41.9 - SEPSIS, UNSPECIFIED ORGANISM Status: Acute Comment: Suspected from potential PNA, received Zosyn and Vancomycin, continue IVF's (2) Intentional lithium overdose Code(s): T56.892A - TOXIC EFFECT OF OTH METALS, INTENTIONAL SELF-HARM, INIT Status: Acute Qualifiers: Encounter type: initial encounter Qualified Code(s): T56.892A - Toxic effect of other metals, intentional self-harm, initial encounter Comment: Continue IVF's, MHMR consult when medically stable, hold [place] (3) Acute respiratory failure with hypoxia Code(s): J96.01 - ACUTE RESPIRATORY FAILURE WITH HYPOXIA Status: Acute Comment: Improved (4) PNA (pneumonia) Code(s): J18.9 - PNEUMONIA, UNSPECIFIED ORGANISM Status: Acute Qualifiers: Pneumonia type: due to unspecified organism Laterality: left Lung location: lower lobe of lung Qualified Code(s): J18.1 - Lobar pneumonia, unspecified organism Comment: Suspected with initial mgmt with Vancomycin and Zosyn, pulmonary support, O2 (5) [place]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 Status: Acute (6) Suicidal ideation Code(s): R45.851 - SUICIDAL IDEATIONS Status: Acute Comment: Apparently recurrent ideation and hx of similar presentation, see #1, sitter 1:1 (7) COPD exacerbation Code(s): J44.1 - CHRONIC OBSTRUCTIVE PULMONARY DISEASE W (ACUTE) EXACERBATION Status: Suspected (8) Alcohol abuse Code(s): F10.10 - ALCOHOL ABUSE, UNCOMPLICATED Status: Chronic Comment: Ativan 2mg IV q6h prn withdrawal sx, MVI, Thiamine, Folate (9) Bipolar 2 disorder Code(s): F31.81 - BIPOLAR II DISORDER Status: Chronic Comment: Supportive mgmt (10) COPD (chronic obstructive pulmonary disease) Status: Chronic Qualifiers: Emphysema type: unspecified (11) Coronary artery disease Code(s): I25.10 - ATHSCL HEART DISEASE OF [place] CORONARY ARTERY W/O ANG PCTRS Status: Chronic Qualifiers: Coronary Disease-Associated Artery/Lesion type: bypass graft [place] vs. transplanted heart: [place] heart Associated angina: without angina Qualified Code(s): I25.810 - Atherosclerosis of coronary artery bypass graft(s) without angina pectoris (12) Depression Code(s): F32.9 - MAJOR DEPRESSIVE DISORDER, SINGLE EPISODE, UNSPECIFIED Status : Chronic Qualifiers: Depression Type: major depressive disorder Major depression recurrence: recurrent Active/Remission status: currently active Psychotic features: without psychotic features Comment: [facility] for disposition (13) Dyslipidemia Code(s): E78.5 - HYPERLIPIDEMIA, UNSPECIFIED Status: Chronic (14) Hypertension Code(s): I10 - ESSENTIAL (PRIMARY) HYPERTENSION Status: Chronic Qualifiers: Hypertension type: essential hypertension Qualified Code(s): I10 - Essential (primary) hypertension (15) Macrocytic anemia Code(s): D53.9 - NUTRITIONAL ANEMIA, UNSPECIFIED Status: Chronic (16) Parkinson disease Code(s): G20 - PARKINSON'S DISEASE Status: Chronic - Plan continue antibiotics, PT/OT, respiratory therapy, incentive spirometry, out of bed/ambulate, DVT proph w/SCDs Li levels improved. urine output stabilizing -: still on precedex.off of levophed. -: add Librium TID as ativan prn not helpful. -: hemodynamically stable but BP marginal w precedex.monitor -: am labs. empiric ABx. * . Review of Systems - Review of Systems Constitutional: weakness, malaise. negative: fever, chills, sweats, other ENT: negative: Ear Pain, Ear Discharge, Nose Pain, Nose Discharge, Nose Congestion, Mouth Pain, Mouth Swelling, Throat Pain, Throat Swelling, Other Respiratory: SOB with Excertion. negative: Cough, Dry, Shortness of Breath, Hemoptysis, Pleuritic Pain, Sputum, Wheezing Cardiovascular: negative: chest pain, palpitations, orthopnea, paroxysmal nocturnal dyspnea, edema, light headedness, other Gastrointestinal: negative: Nausea, Vomiting, Abdominal Pain, Diarrhea, Constipation, Melena, Hematochezia, Other Genitourinary: negative: Dysuria, Frequency, Incontinence, Hematuria, Retention , Other Musculoskeletal: negative: Neck Pain, Shoulder Pain, Arm Pain, Back Pain, Hand Pain, Leg Pain, Foot Pain, Other Skin: negative: Rash, Lesions, Amado, Bruising, Other Neurological: negative: Weakness, Numbness, Incoordination, Change in Speech, Confusion, Seizures, Other - Medications/Allergies Allergies/Adverse Reactions: Allergies Allergy/AdvReac Type Severity Reaction Status Date / Time No Known Allergies Allergy Verified 06/16/14 15:08 Medications: Current Medications Al Hydroxide/Mg Hydroxide (Maalox) 30 ml PO Q4H PRN PRN Reason: Heartburn or Indigestion Last Admin: 12/22/17 12:49 Dose: 30 ml Albuterol Sulfate (Proventil Hfa) 2 puff INH Q4H PRN PRN Reason: Dyspnea Albuterol/Ipratropium (Duoneb) 3 ml NEB QID-RT [facility] Last Admin: 12/25/17 14:34 Dose: 3 ml Aspirin (Ecotrin) 81 mg PO HS [facility] Last Admin: 12/24/17 20:59 Dose: 81 mg Clopidogrel Bisulfate (Plavix) 75 mg PO HS [facility] Last Admin: 12/24/17 20:59 Dose: 75 mg Diazepam (Valium) 5 mg PO Q4H PRN PRN Reason: FOR ASE 10 OR GREATER Enoxaparin Sodium (Lovenox) 40 mg SC 0900 [facility] Last Admin: 12/25/17 08:36 Dose: 40 mg Folic Acid (Folvite) 1 mg PO DAILY [facility] Last Admin: 12/25/17 08:36 Dose: 1 mg Dexmedetomidine HCl 400 mcg/Miscellaneous Medication 1 each/ Sodium Chloride 100 mls @ 0 mls/hr IVPB INF [facility]; Protocol Last Admin: 12/25/17 05:32 Dose: 100 mls Potassium Phosphate 15 mmol/ (Sodium Chloride) 255 mls @ 62.5 mls/hr IVPB ONE [facility] Iron/Minerals/Multivitamins (Theragran M) 1 tab PO DAILY [facility] Last Admin: 12/25/17 08:36 Dose: 1 tab Levofloxacin (Levaquin) 750 mg PO 0600 [facility] Stop: 12/31/17 06:01 Lorazepam (Ativan) 2 mg SLOW IVP Q6H PRN PRN Reason: Anxiety/Agitation Last Admin: 12/23/17 08:15 Dose: 2 mg Magnesium Oxide (Magnesium Oxide) 400 mg PO DAILY [facility] Last Admin: 12/25/17 08:36 Dose: 400 mg Prednisone (Prednisone) 40 mg PO ONE [facility] Prednisone (Prednisone) 40 mg PO QAM-WM [facility] Stop: 12/29/17 08:01 Sodium Chloride (Flush - Normal Saline) 10 ml IVF Q12HR [facility] Last Admin: 12/25/17 08:37 Dose: 10 ml Sodium Chloride (Flush - Normal Saline) 10 ml IVF PRN PRN PRN Reason: Saline Flush Thiamine HCl (Thiamine) 100 mg PO DAILY [facility] Last Admin: 12/25/17 08:36 Dose: 100 mg
[2017-12-25] MEDS ORDERED: Potassium Phosphate 15 MMOL in Sodium Chloride 0.9% 250 ML 250 ML IVPB SCH (15:30)
[2017-12-25] MEDS ORDERED: predniSONE 20 MG TAB PO SCH (15:30)
--- NOTE | 2017-12-25 15:43 | PRG ---
DATE OF SERVICE: 12/25/2017 SERVICE: Pulmonary Medicine. INTERVAL HISTORY: The patient is doing great from a respiratory standpoint. Mentation hines, he is d oing fantastic. He is eating. He is awake and alert. He is actually a little oriented today. Ther e has been no interval change to his condition. Urine output has dropped off. He is off of the pres sors now. PHYSICAL EXAMINATION: VITAL SIGNS: Afebrile, pulse 67, blood pressure 135/46, respirations 22, saturation 98% on room air. GENERAL: The patient is awake, alert, no apparent distress. LUNGS: Excellent air entry. There is prolonged expiratory phase with wheezing. Crackles and rhonch i are also present. HEART: Normal rate, regular. ABDOMEN: Soft, nontender, nondistended. Bowel sounds are positive. MUSCULOSKELETAL: No cyanosis or clubbing. There is no pitting in the bilateral lower extremities. NEUROLOGIC: Grossly nonfocal. LABORATORY DATA: WBC 12.3, hemoglobin 11.1, platelets 153,000. Band count is 15%. Basic metabolic profile is unremarkable. Phosphorus 1.4. Paia level is down within the normal limits of 1.1. IMAGING: Echocardiogram demonstrates normal ejection fraction with a little diastolic dysfunction. ASSESSMENT: 1. Acute hypoxic respiratory failure, resolved. 2. Chronic obstructive pulmonary disease with acute exacerbation. 3. Intentional drug overdose with lithium. 4. Nephrogenic diabetes insipidus. 5. Delirium tremens. 6. Community-acquired pneumonia. DISCUSSION AND PLAN: We will continue antibiotics, nebulized medications, and steroids. We will wea n the Precedex away as time goes on. The patient is off Levophed. Once he is off of the Precedex fo r about 6 hours, he can be considered for transition to the floor. I will continue to follow him. P otassium and phosphorus will be replaced today. We start working on mobilization efforts. IV fluids will be interrupted.
[2017-12-25] MEDS: Aspirin 81 mg Enteric Coated Tablet PO SCH (20:58)
[2017-12-25] MEDS: Clopidogrel Bisulfate 75 MG TAB PO SCH (20:58)
[2017-12-26] MEDS: Dexmedetomidine 400 MCG, Admixture Fee 1 EACH in Sodium Chloride 0.9% 96 ML IVPB SCH (03:25)
[2017-12-26 04:16] LABS: Anion Gap 12 mmol/L (10-20); BUN (Urea Nitrogen) Less than 4 mg/dL (8.4-25.7); Calc. Creatinine Clearance 117 mL/min (70-130); Calcium 9.1 mg/dL (7.8-10.44); Carbon Dioxide 23 mmol/L (23-31); Chloride 111 mmol/L (98-107); Estimated GFR-MDRD Greater than 90; Glucose 111 mg/dL (80-115); Phosphorus 2.9 mg/dL (2.3-4.7); Potassium 3.2 mmol/L (3.5-5.1); Sodium 143 mmol/L (136-145)
[2017-12-26] MEDS: predniSONE 20 MG TAB PO SCH (07:41)
[2017-12-26] MEDS: Multivitamin W/ Minerals 1 TAB PO SCH (08:28)
[2017-12-26] MEDS: Magnesium Oxide 400 MG TAB PO SCH (08:28)
[2017-12-26] MEDS: Enoxaparin Sodium 40 MG/0.4 ML SYRINGE SC SCH (08:28)
[2017-12-26] MEDS: Folic Acid 1 MG TAB PO SCH (08:28)
--- NOTE | 2017-12-26 15:40 | PDOC.PN ---
- Subjective Encounter Start Date: 12/26/17 Encounter Start Time: 15:38 Subjective: no new events. still on precedexbut denies any DT -: unhappy about being on the drip - Objective Resuscitation Status: Resuscitation Status FULL:Full Resuscitation MAR Reviewed: Yes Vital Signs & Weight: Vital Signs (12 hours) Temp Pulse Resp BP Pulse Ox 12/26/17 12:00 98.5 F 111/78 12/26/17 10:09 113 H 25 H 12/26/17 08:00 135/69 12/26/17 07:12 98.8 F 73 16 96 12/26/17 06:18 99 12/26/17 06:15 74 18 99 12/26/17 06:00 98.0 F 12/26/17 04:00 132/72 Weight Admit Weight 178 lb Weight 178 lb Most Recent Monitor Data Heart Rate from ECG 98 NIBP 118/85 NIBP BP-Mean 102 Respiration from ECG 20 SpO2 83 I&O: 12/25/17 12/26/17 12/27/17 06:59 06:59 06:59 Intake Total 2256.6 2755.80 960 Output Total 3225 2960 845 Balance -968.4 -204.20 115 Result Diagrams: 12/23/17 04:15 12/26/17 03:35 Additional Labs: labs reviewed Phys Exam - Physical Examination Constitutional: NAD sitting up in chair.resting tremor due to parkinsons HEENT: PERRLA, moist MMs, sclera anicteric, oral pharynx no lesions Neck: no nodes, no JVD, supple, full ROM Respiratory: no wheezing, no rales, no rhonchi, clear to auscultation bilateral Cardiovascular: RRR, no significant murmur Gastrointestinal: soft, non-tender, no distention, positive bowel sounds Musculoskeletal: no edema, pulses present Neurological: non-focal, normal sensation, moves all 4 limbs Psychiatric: normal affect, A&O x 3 Dx/Plan (1) Sepsis Code(s): A41.9 - SEPSIS, UNSPECIFIED ORGANISM Status: Acute Comment: Suspected from potential PNA, received Zosyn and Vancomycin, continue IVF's (2) Intentional lithium overdose Code(s): T56.892A - TOXIC EFFECT OF OTH METALS, INTENTIONAL SELF-HARM, INIT Status: Acute Qualifiers: Encounter type: initial encounter Qualified Code(s): T56.892A - Toxic effect of other metals, intentional self-harm, initial encounter Comment: Continue IVF's, MHMR consult when medically stable, hold [place] (3) Acute respiratory failure with hypoxia Code(s): J96.01 - ACUTE RESPIRATORY FAILURE WITH HYPOXIA Status: Acute Comment: Improved (4) PNA (pneumonia) Code(s): J18.9 - PNEUMONIA, UNSPECIFIED ORGANISM Status: Acute Qualifiers: Pneumonia type: due to unspecified organism Laterality: left Lung location: lower lobe of lung Qualified Code(s): J18.1 - Lobar pneumonia, unspecified organism Comment: Suspected with initial mgmt with Vancomycin and Zosyn, pulmonary support, O2 (5) [place]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 Status: Acute (6) Suicidal ideation Code(s): R45.851 - SUICIDAL IDEATIONS Status: Acute Comment: Apparently recurrent ideation and hx of similar presentation, see #1, sitter 1:1 (7) COPD exacerbation Code(s): J44.1 - CHRONIC OBSTRUCTIVE PULMONARY DISEASE W (ACUTE) EXACERBATION Status: Suspected (8) Alcohol abuse Code(s): F10.10 - ALCOHOL ABUSE, UNCOMPLICATED Status: Chronic Comment: Ativan 2mg IV q6h prn withdrawal sx, MVI, Thiamine, Folate (9) Bipolar 2 disorder Code(s): F31.81 - BIPOLAR II DISORDER Status: Chronic Comment: Supportive mgmt (10) COPD (chronic obstructive pulmonary disease) Status: Chronic Qualifiers: Emphysema type: unspecified (11) Coronary artery disease Code(s): I25.10 - ATHSCL HEART DISEASE OF [place] CORONARY ARTERY W/O ANG PCTRS Status: Chronic Qualifiers: Coronary Disease-Associated Artery/Lesion type: bypass graft [place] vs. transplanted heart: [place] heart Associated angina: without angina Qualified Code(s): I25.810 - Atherosclerosis of coronary artery bypass graft(s) without angina pectoris (12) Depression Code(s): F32.9 - MAJOR DEPRESSIVE DISORDER, SINGLE EPISODE, UNSPECIFIED Status : Chronic Qualifiers: Depression Type: major depressive disorder Major depression recurrence: recurrent Active/Remission status: currently active Psychotic features: without psychotic features Comment: [facility] for disposition (13) Dyslipidemia Code(s): E78.5 - HYPERLIPIDEMIA, UNSPECIFIED Status: Chronic (14) Hypertension Code(s): I10 - ESSENTIAL (PRIMARY) HYPERTENSION Status: Chronic Qualifiers: Hypertension type: essential hypertension Qualified Code(s): I10 - Essential (primary) hypertension (15) Macrocytic anemia Code(s): D53.9 - NUTRITIONAL ANEMIA, UNSPECIFIED Status: Chronic (16) Parkinson disease Code(s): G20 - PARKINSON'S DISEASE Status: Chronic - Plan continue antibiotics, PT/OT, respiratory therapy, incentive spirometry, out of bed/ambulate, DVT proph w/SCDs Cont precedex per [facility]. Transfer to medical when finished -: Pt denies any SI or attempts. MR when stable. -: Rehab eval if cleared by [facility] for DC . -: cont OT/PT -: May add librium once precedex is off. No Dts for now.stable * . Review of Systems - Review of Systems Constitutional: weakness, malaise. negative: fever, chills, sweats, other ENT: negative: Ear Pain, Ear Discharge, Nose Pain, Nose Discharge, Nose Congestion, Mouth Pain, Mouth Swelling, Throat Pain, Throat Swelling, Other Respiratory: negative: Cough, Dry, Shortness of Breath, Hemoptysis, SOB with Excertion, Pleuritic Pain, Sputum, Wheezing Cardiovascular: negative: chest pain, palpitations, orthopnea, paroxysmal nocturnal dyspnea, edema, light headedness, other Gastrointestinal: negative: Nausea, Vomiting, Abdominal Pain, Diarrhea, Constipation, Melena, Hematochezia, Other Genitourinary: negative: Dysuria, Frequency, Incontinence, Hematuria, Retention , Other Musculoskeletal: negative: Neck Pain, Shoulder Pain, Arm Pain, Back Pain, Hand Pain, Leg Pain, Foot Pain, Other Skin: negative: Rash, Lesions, Amado, Bruising, Other Neurological: negative: Weakness, Numbness, Incoordination, Change in Speech, Confusion, Seizures, Other - Medications/Allergies Allergies/Adverse Reactions: Allergies Allergy/AdvReac Type Severity Reaction Status Date / Time No Known Allergies Allergy Verified 06/16/14 15:08 Medications: Current Medications Al Hydroxide/Mg Hydroxide (Maalox) 30 ml PO Q4H PRN PRN Reason: Heartburn or Indigestion Last Admin: 12/22/17 12:49 Dose: 30 ml Albuterol Sulfate (Proventil Hfa) 2 puff INH Q4H PRN PRN Reason: Dyspnea Albuterol/Ipratropium (Duoneb) 3 ml NEB QID-RT [facility] Last Admin: 12/26/17 10:09 Dose: 3 ml Aspirin (Ecotrin) 81 mg PO HS [facility] Last Admin: 12/25/17 20:58 Dose: 81 mg Clopidogrel Bisulfate (Plavix) 75 mg PO HS [facility] Last Admin: 12/25/17 20:58 Dose: 75 mg Diazepam (Valium) 5 mg PO Q4H PRN PRN Reason: FOR ASE 10 OR GREATER Enoxaparin Sodium (Lovenox) 40 mg SC 0900 [facility] Last Admin: 12/26/17 08:28 Dose: 40 mg Folic Acid (Folvite) 1 mg PO DAILY [facility] Last Admin: 12/26/17 08:28 Dose: 1 mg Dexmedetomidine HCl 400 mcg/Miscellaneous Medication 1 each/ Sodium Chloride 100 mls @ 0 mls/hr IVPB INF [facility]; Protocol Last Admin: 12/26/17 03:25 Dose: 100 mls Iron/Minerals/Multivitamins (Theragran M) 1 tab PO DAILY [facility] Last Admin: 12/26/17 08:28 Dose: 1 tab Levofloxacin (Levaquin) 750 mg PO 0600 [facility] Stop: 12/31/17 06:01 Last Admin: 12/26/17 07:41 Dose: 750 mg Lorazepam (Ativan) 2 mg SLOW IVP Q6H PRN PRN Reason: Anxiety/Agitation Last Admin: 12/23/17 08:15 Dose: 2 mg Magnesium Oxide (Magnesium Oxide) 400 mg PO DAILY [facility] Last Admin: 12/26/17 08:28 Dose: 400 mg Prednisone (Prednisone) 40 mg PO QAM-WM [facility] Stop: 12/29/17 08:01 Last Admin: 12/26/17 07:41 Dose: 40 mg Sodium Chloride (Flush - Normal Saline) 10 ml IVF Q12HR [facility] Last Admin: 12/26/17 08:29 Dose: 10 ml Sodium Chloride (Flush - Normal Saline) 10 ml IVF PRN PRN PRN Reason: Saline Flush Thiamine HCl (Thiamine) 100 mg PO DAILY [facility] Last Admin: 12/26/17 08:27 Dose: 100 mg
--- NOTE | 2017-12-26 19:27 | PRG ---
DATE OF SERVICE: 12/26/2017 SERVICE: Pulmonary Medicine. INTERVAL HISTORY: The patient is doing great from a respiratory standpoint. Neurologically, he is d oing absolutely wonderful. He has been titrated down to 0.1 of Precedex. His tremor secondary to Pa rkinson's disease, is not actually withdrawal tremor. Otherwise, there has been no interval change t o his condition. OBJECTIVE: VITAL SIGNS: Afebrile, pulse 103, blood pressure 126/70, respirations 20, saturation 99% on room air . GENERAL: The patient is awake and alert, in no apparent distress. LUNGS: Excellent air entry. Rhonchi clear with cough that are much improved. No wheezing or crackl es are appreciated. HEART: Normal rate, regular. ABDOMEN: Soft, nontender, nondistended. Bowel sounds are positive. MUSCULOSKELETAL: No cyanosis or clubbing. There is no pitting in the bilateral lower extremities. NEUROLOGIC: Grossly nonfocal. LABORATORY DATA: Potassium 3.2. Basic metabolic profile is otherwise unremarkable. Phosphorus is i mproved to 2.9. ASSESSMENT: 1. Acute hypoxic respiratory failure, resolved. 2. Chronic obstructive pulmonary disease with acute exacerbation. 3. Intentional drug overdose with lithium. 4. Nephrogenic diabetes insipidus, resolved. 5. Delirium tremens. 6. Community-acquired pneumonia. DISCUSSION AND PLAN: We will continue making efforts at weaning of Precedex. We will continue stero ids and antibiotics for a total duration of 5 days. Once he is off the Precedex drip for at least 6 hours and maintaining normal mentation, he could be transitioned out of the ICU to the medical unit. I will replace potassium today. Of note, we will provide him with a laboratory holiday.
[2017-12-26] MEDS: Potassium Chloride 20 MEQ TAB PO SCH (20:22)
[2017-12-26] MEDS: Clopidogrel Bisulfate 75 MG TAB PO SCH (20:23)
[2017-12-26] MEDS: Aspirin 81 mg Enteric Coated Tablet PO SCH (20:23)
[2017-12-27] MEDS: Potassium Chloride 20 MEQ TAB PO SCH (00:55)
[2017-12-27] MEDS: predniSONE 20 MG TAB PO SCH (08:56)
[2017-12-27] MEDS: Magnesium Oxide 400 MG TAB PO SCH (08:56)
[2017-12-27] MEDS: Multivitamin W/ Minerals 1 TAB PO SCH (08:56)
[2017-12-27] MEDS: Enoxaparin Sodium 40 MG/0.4 ML SYRINGE SC SCH (08:56)
[2017-12-27] MEDS: Folic Acid 1 MG TAB PO SCH (08:56)
[2017-12-27 12:12] VITALS: BP 144/96; TEMP 98.3
[2017-12-27 14:51] LABS: Calcium 10.2 mg/dL (7.8-10.44); Chloride 109 mmol/L (98-107); Glucose 206 mg/dL (80-115); Potassium 4.2 mmol/L (3.5-5.1); Sodium 142 mmol/L (136-145)
[2017-12-27 14:53] LABS: Anion Gap 17 mmol/L (10-20); Carbon Dioxide 20 mmol/L (23-31)
[2017-12-27 14:56] LABS: BUN (Urea Nitrogen) 9 mg/dL (8.4-25.7)
[2017-12-27 14:59] LABS: Calc. Creatinine Clearance 72 mL/min (70-130); Estimated GFR-MDRD 63
--- NOTE | 2017-12-27 15:24 | PQF ---
CLINICAL DOCUMENTATION IMPROVEMENT CLARIFICATION FORM: ICD-10 Updated PLEASE DO AN ADDENDUM TO THE PROGRESS NOTE WITH ANY DOCUMENTATION UPDATES OR ADDITIONS AND CARRY THROUGH TO DC SUMMARY. THANK YOU. DATE: 12/27/17 ATTN: DR. TUTTLE Please exercise your independent, professional judgment in responding to the clarification form. Clinical indicators are provided on the bottom of this form for your review Diagnosis: SEPSIS Present on Admission (POA): [ x ] Yes [ ] No [ ] Unable to determine Coding guidelines require hospitals to identify whether a diagnosis was present on admission (POA) or not. To accurately assign the appropriate POA indicator, this information must be clearly documented within the medical record. H&P 12/21: "CHIEF COMPLAINT: SUICIDAL IDEATION WITH LITHIUM OVERDOSE" PROGRESS NOTE 12/22: "SEPSIS" PROGRESS NOTE 12/23: "SEPSIS" WBC 12/20: 9.0 / 12/22: 12.4 PULSE IN ER: 114 RISKS: PNEUMONIA (PULMONARY CONSULTATION NOTE 12/22- NOTES THROUGH 12/27) TREATMENT: IV FLUIDS (ER) LEVAQUIN (12/26-PRESENT) CRITICAL CARE MONITORING LEVOPHED (STARTED 12/22) VANCOMYCIN (12/22) (This form is maintained as a part of the permanent medical record) 2014 [employer] All Rights Reserved [email or web address] Office: [phone] [facility]ITAL[facility]
--- NOTE | 2017-12-27 15:27 | PRG ---
DATE OF SERVICE: 12/27/2017 SERVICE: Pulmonary Medicine. INTERVAL HISTORY: The patient is doing fine from a cardiovascular and respiratory standpoint. He tavarez s been off his Precedex drip since yesterday. Mentation hines, he continues to do quite well. He is not very tremulous outside of his underlying Parkinson's tremor. Otherwise, there has been no interv al change to his condition and nursing reports no overnight events. He was able to get out of bed an d into a chair. Strength is significantly impaired, but improving. PHYSICAL EXAMINATION: VITAL SIGNS: Afebrile, pulse 110, blood pressure 144/96, respirations 16, saturation 99% on room air . GENERAL: The patient is awake, alert, in no apparent distress. HEENT: Normocephalic, atraumatic. Sclerae are white. Conjunctivae are pink. Oral mucosa is moist without lesions. LUNGS: Decent air entry. There is a slightly prolonged expiratory phase. I do not appreciate wheez ing or crackles today. Rhonchi clear with cough. HEART: Normal rate, regular. ABDOMEN: Soft, nontender, nondistended. Bowel sounds are positive. MUSCULOSKELETAL: No cyanosis or clubbing. There is no pitting in the bilateral lower extremities. NEUROLOGIC: Grossly nonfocal. LABORATORY DATA: Basic metabolic profile is essentially unremarkable. WBC 12.3, hemoglobin 11.1, pl atelets 153,000. Band count is 15%. ASSESSMENT: 1. Acute hypoxic respiratory failure, resolved. 2. Chronic obstructive pulmonary disease with acute exacerbation, mild. 3. Intentional drug overdose with lithium. 4. Nephrogenic diabetes insipidus, resolved. 5. Delirium tremens, resolved. 6. Community-acquired pneumonia. 7. Parkinson's disease with tremor. DISCUSSION AND PLAN: The patient can be transitioned to the medical unit. I will consult [facility] as he will be stable for transition out of the hospital by the morning if all goes well. We will disconti nue the Burk catheter. He will need physical therapy wherever he goes in order to regain lost stren gth. I will try to give him a lab holiday again tomorrow morning. He has developed some hyperglycem ia associated with the steroids. As such, we will check his sugars a.c. and at bedtime and give him a mild sliding scale.
--- NOTE | 2017-12-27 15:35 | PDOC.PN ---
- Subjective Encounter Start Date: 12/27/17 Encounter Start Time: 13:00 PAtient is seen today, alert and oriented. He is worried about falls, due to worseing of his parkinsosn, but did admit to taking lithium meds intentionally. - Objective Resuscitation Status: Resuscitation Status FULL:Full Resuscitation MAR Reviewed: Yes Vital Signs & Weight: Vital Signs (12 hours) Temp Pulse Pulse Pulse Resp BP BP 12/27/17 14:41 110 H 16 12/27/17 12:00 98.3 F 144/96 H 12/27/17 11:30 93 103 H 157/84 H 12/27/17 10:49 90 14 12/27/17 08:00 129/90 12/27/17 07:20 98.4 F 107 H 19 12/27/17 07:04 91 13 12/27/17 07:00 98.8 F 12/27/17 04:00 115/78 BP Pulse Ox Pulse Ox Pulse Ox 12/27/17 14:41 12/27/17 12:00 12/27/17 11:30 153/89 H 98 99 12/27/17 10:49 12/27/17 08:00 12/27/17 07:20 92 L 12/27/17 07:04 12/27/17 07:00 12/27/17 04:00 Weight Admit Weight 178 lb Weight 178 lb Most Recent Monitor Data Heart Rate from ECG 108 NIBP 144/96 NIBP BP-Mean 117 Respiration from ECG 19 SpO2 93 I&O: 12/26/17 12/27/17 12/28/17 06:59 06:59 06:59 Intake Total 2755.80 2332 240 Output Total 2960 2460 220 Balance -204.20 -128 20 Result Diagrams: 12/23/17 04:15 12/27/17 14:25 Radiology Reviewed by me: Yes Phys Exam - Physical Examination HEENT: PERRLA, moist MMs Neck: no nodes, no JVD Respiratory: no wheezing, no rales Cardiovascular: RRR, no significant murmur Gastrointestinal: soft, non-tender Musculoskeletal: no edema, pulses present Involuntery tremor and facisulation noted. 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 (3) Intentional lithium overdose Code(s): T56.892A - TOXIC EFFECT OF OTH METALS, INTENTIONAL SELF-HARM, INIT Status: Acute Qualifiers: Encounter type: initial encounter Qualified Code(s): T56.892A - Toxic effect of other metals, intentional self-harm, initial encounter Comment: Continue IVF's, MHMR consult when medically stable, hold [place] (4) Suicidal ideation Code(s): R45.851 - SUICIDAL IDEATIONS Status: Acute Comment: Apparently recurrent ideation and hx of similar presentation, see #1, sitter 1:1 (5) Alcohol abuse Code(s): F10.10 - ALCOHOL ABUSE, UNCOMPLICATED Status: Chronic Comment: Ativan 2mg IV q6h prn withdrawal sx, MVI, Thiamine, Folate (6) Bipolar 2 disorder Code(s): F31.81 - BIPOLAR II DISORDER Status: Chronic Comment: Supportive mgmt (7) Coronary artery disease Code(s): I25.10 - ATHSCL HEART DISEASE OF [place] CORONARY ARTERY W/O ANG PCTRS Status: Chronic Qualifiers: Coronary Disease-Associated Artery/Lesion type: bypass graft [place] vs. transplanted heart: [place] heart Associated angina: without angina Qualified Code(s): I25.810 - Atherosclerosis of coronary artery bypass graft(s) without angina pectoris (8) Hypertension Code(s): I10 - ESSENTIAL (PRIMARY) HYPERTENSION Status: Chronic Qualifiers: Hypertension type: essential hypertension Qualified Code(s): I10 - Essential (primary) hypertension (9) Parkinson disease Code(s): G20 - PARKINSON'S DISEASE Status: Chronic Comment: it is at Baseline, pt sees Dr. llanos. pt has perssitant tremors and high risk for falls , need PT/.OT and rehab placement. - Plan cont current plan of care, PT/OT, executive secretary social welfare, respiratory therapy, incentive spirometry, out of bed/ambulate, DVT proph w/lovenox * . Review of Systems - Review of Systems Eyes: negative: Pain, Vision Change, Conjunctivae Inflammation, Eyelid Inflammation, Redness, Other ENT: negative: Ear Pain, Ear Discharge, Nose Pain, Nose Discharge, Nose Congestion, Mouth Pain, Mouth Swelling, Throat Pain, Throat Swelling, Other Respiratory: negative: Cough, Dry, Shortness of Breath, Hemoptysis, SOB with Excertion, Pleuritic Pain, Sputum, Wheezing Cardiovascular: negative: chest pain, palpitations, orthopnea, paroxysmal nocturnal dyspnea, edema, light headedness, other Gastrointestinal: negative: Nausea, Vomiting, Abdominal Pain, Diarrhea, Constipation, Melena, Hematochezia, Other Musculoskeletal: negative: Neck Pain, Shoulder Pain, Arm Pain, Back Pain, Hand Pain, Leg Pain, Foot Pain, Other Skin: negative: Rash, Lesions, Amado, Bruising, Other Neurological: Weakness - Medications/Allergies Allergies/Adverse Reactions: Allergies Allergy/AdvReac Type Severity Reaction Status Date / Time No Known Allergies Allergy Verified 06/16/14 15:08 Medications: Current Medications Al Hydroxide/Mg Hydroxide (Maalox) 30 ml PO Q4H PRN PRN Reason: Heartburn or Indigestion Last Admin: 12/22/17 12:49 Dose: 30 ml Albuterol Sulfate (Proventil Hfa) 2 puff INH Q4H PRN PRN Reason: Dyspnea Albuterol/Ipratropium (Duoneb) 3 ml NEB QID-RT [facility] Last Admin: 12/27/17 14:41 Dose: 3 ml Aspirin (Ecotrin) 81 mg PO [facility] Last Admin: 12/26/17 20:23 Dose: 81 mg Clopidogrel Bisulfate (Plavix) 75 mg PO [facility] Last Admin: 12/26/17 20:23 Dose: 75 mg Diazepam (Valium) 5 mg PO Q4H PRN PRN Reason: FOR ASE 10 OR GREATER Enoxaparin Sodium (Lovenox) 40 mg SC 0900 [facility] Last Admin: 12/27/17 08:56 Dose: 40 mg Folic Acid (Folvite) 1 mg PO DAILY [facility] Last Admin: 12/27/17 08:56 Dose: 1 mg Iron/Minerals/Multivitamins (Theragran M) 1 tab PO DAILY [facility] Last Admin: 12/27/17 08:56 Dose: 1 tab Levofloxacin (Levaquin) 750 mg PO 0600 [facility] Stop: 12/31/17 06:01 Last Admin: 12/27/17 06:07 Dose: 750 mg Lorazepam (Ativan) 2 mg SLOW IVP Q6H PRN PRN Reason: Anxiety/Agitation Last Admin: 12/23/17 08:15 Dose: 2 mg Magnesium Oxide (Magnesium Oxide) 400 mg PO DAILY [facility] Last Admin: 12/27/17 08:56 Dose: 400 mg Prednisone (Prednisone) 40 mg PO QAM-WM [facility] Stop: 12/29/17 08:01 Last Admin: 12/27/17 08:56 Dose: 40 mg Sodium Chloride (Flush - Normal Saline) 10 ml IVF Q12HR [facility] Last Admin: 12/27/17 08:57 Dose: 10 ml Sodium Chloride (Flush - Normal Saline) 10 ml IVF PRN PRN PRN Reason: Saline Flush Thiamine HCl (Thiamine) 100 mg PO DAILY [facility] Last Admin: 12/27/17 08:56 Dose: 100 mg
== END 2017-12-27 19:58 | DRG 917 ==
LOC: ERS 21:01 → 2NO 12-21 04:35 → CCU 12-21 23:16
PROVIDERS: ADMIT Hospitalist; ATTEND Hospitalist
PROC: 02HV33Z Insertion of Infusion Device into Superior Vena Cava, Percutaneous Approach (ICD-10-PCS; principal; 2017-12-22)
PROC: 3E043XZ Introduction of Vasopressor into Central Vein, Percutaneous Approach (ICD-10-PCS; 2017-12-22)
PROC: 5A09357 Assistance with Respiratory Ventilation, Less than 24 Consecutive Hours, Continuous Positive Airway Pressure (ICD-10-PCS; 2017-12-22)
DX: T43.592A Poisoning by other antipsychotics and neuroleptics, intentional self-harm, initial encounter (principal); J18.9 Pneumonia, unspecified organism; J96.01 Acute respiratory failure with hypoxia; A41.9 Sepsis, unspecified organism; F31.81 Bipolar II disorder; N25.1 Nephrogenic diabetes insipidus; J44.0 Chronic obstructive pulmonary disease with (acute) lower respiratory infection; J44.1 Chronic obstructive pulmonary disease with (acute) exacerbation; F10.231 Alcohol dependence with withdrawal delirium; T51.0X2A Toxic effect of ethanol, intentional self-harm, initial encounter; I25.10 Atherosclerotic heart disease of native coronary artery without angina pectoris; G20 Parkinson's disease; I95.2 Hypotension due to drugs; Y90.4 Blood alcohol level of 80-99 mg/100 ml; Z95.5 Presence of coronary angioplasty implant and graft; E87.6 Hypokalemia; I10 Essential (primary) hypertension; D53.9 Nutritional anemia, unspecified; R19.7 Diarrhea, unspecified; E78.5 Hyperlipidemia, unspecified; Z85.46 Personal history of malignant neoplasm of prostate; Z87.891 Personal history of nicotine dependence; Z79.02 Long term (current) use of antithrombotics/antiplatelets; Z79.82 Long term (current) use of aspirin
CPT/HCPCS: 36415; 51701; 71045; 80048; 80053; 80178; 80306; 80307; 83735; 84100; 85007; 85025; 85027; 93005; 93010; 93306; 94660; 96361; 96374; 96376; A4216; C1751; G8978-GP-CL; G8979-GP-CI; J1650; J1940; J2060; J2405; J2543; J3370; J3475; J7050; J7506; J7620

== ENCOUNTER 2018-01-10 13:43 | Emergency (ER) | payer MEDICARE, OTHER ==
[2018-01-10 14:47] LABS: #Basophils 0.2 thou/uL (0.0-0.2); #Eosinphils 0.9 thou/uL (0.0-0.7); #Lymphocytes 2.6 thou/uL (1.20-3.40); #Monocytes 0.4 thou/uL (0.11-0.59); #Neutrophils 3.4 thou/uL (1.40-6.50); %Basophils 2.3 % (0.0-1.0); %Eosinophils 12.5 % (0.0-10.0); %Lymphocytes 33.9 % (21.0-51.0); %Monocytes 5.7 % (0.0-10.0); %Neutrophils 45.6 % (42.0-75.0); Mean Corpuscular HGB CONC 33.9 g/dL (32.0-36.0); Mean Platelet Volume 7.5 fL (7.4-10.4); Platelet Count 506 thou/uL (130-400); RBC Distribution Width 12.5 % (11.5-14.5); Red Blood Cell (RBC) Count 4.29 mill/uL (4.70-6.10); White Blood Cell (WBC) Count 7.5 thou/uL (4.8-10.8)
[2018-01-10 15:12] LABS: ALT (SGPT) 26 U/L (8-55); AST (SGOT) 25 U/L (5-34); Alcohol 195 mg/dL (Less than 10); Alkaline Phosphatase 78 U/L (40-150); Anion Gap 17 mmol/L (10-20); BUN (Urea Nitrogen) 8 mg/dL (8.4-25.7); Bilirubin, Total 0.3 mg/dL (0.2-1.2); CK (CPK) 47 U/L (30-200); Calc. Creatinine Clearance 0 mL/min (70-130); Calcium 9.2 mg/dL (7.8-10.44); Carbon Dioxide 23 mmol/L (23-31); Chloride 109 mmol/L (98-107); Estimated GFR-MDRD 87; Globulin 2.9 g/dL (2.4-3.5); Glucose 136 mg/dL (80-115); Protein, Total 6.9 g/dL (5.8-8.1); Sodium 145 mmol/L (136-145)
[2018-01-10 15:49] LABS: Bilirubin Negative (Negative); Blood, Urine Negative (Negative); Clarity CLEAR (Clear); Glucose, Urine (Dipstick) Negative (Negative); Leukocyte Negative (Negative); Nitrite Negative (Negative); Protein, Urine (Dipstick) Negative (Neg-Trace); Specific Gravity, Urine 1.008 (1.002-1.036); Urobilinogen 0.2 mg/dL (0.2-1.0); pH, Urine 5.5 (5.0-9.0)
[2018-01-10 15:59] LABS: Amphetamine Not Detected (NotDetected); Barbiturates Screen Not Detected (NotDetected); Benzodiazepine Screen Detected (NotDetected); Cocaine Metabolite Screen Not Detected (NotDetected); Medtox Control Line Valid? VALID (VALID); Medtox Reader # READER 4; Methadone Not Detected (NotDetected); Methamphetamine Not Detected (NotDetected); Opiate Screen Not Detected (NotDetected); Oxycodone Screen Not Detected (NotDetected); Phencyclidine (PCP) Not Detected (NotDetected); THC/Cannabinoid Screen Not Detected (NotDetected); Tricyclic Screen Not Detected (NotDetected)
[2018-01-10] MEDS ORDERED: Diazepam 5 MG TAB ONE (17:58)
[2018-01-10] MEDS ORDERED: Multivitamins, Adult 10 ML, Thiamine HCl 100 MG, Folic Acid 1 MG in Dextrose 5 %-0.45 %... IV SCH (18:00)
[2018-01-10] MEDS ORDERED: Lorazepam 2 MG/ML VIAL ONE (18:53)
[2018-01-10] MEDS ORDERED: methylPREDNISolone Sod Succ/PF 125 MG/2 ML VIAL ONE (22:15)
[2018-01-10] MEDS ORDERED: Magnesium Sulfate 2 GM/100 ML BAG ONE (22:15)
--- NOTE | 2018-01-13 21:20 | EKG ---
Test Reason : Blood Pressure : / mmHG Vent. Rate : 099 BPM Atrial Rate : 099 BPM P-R Int : 118 ms QRS Dur : 096 ms QT Int : 388 ms P-R-T Axes : 002 -89 020 degrees QTc Int : 497 ms Normal sinus rhythm Left axis deviation Inferior infarct , age undetermined Abnormal ECG Confirmed by MILLA RODRIGUEZ DO ([id number]), editor managing newspaper KAMI MURILLO ([id number]) on 01/13/2018 9:20:15 PM Referred By: DO RODRIGUEZ Confirmed By:MILLA RODRIGUEZ DO
== END 2018-01-11 00:40 | disposition home or self-care (01) ==
LOC: ERS 13:43
DX: F10.129 Alcohol abuse with intoxication, unspecified (principal); Y90.6 Blood alcohol level of 120-199 mg/100 ml; J44.1 Chronic obstructive pulmonary disease with (acute) exacerbation; I25.2 Old myocardial infarction; I25.10 Atherosclerotic heart disease of native coronary artery without angina pectoris; I10 Essential (primary) hypertension; G20 Parkinson's disease; F31.9 Bipolar disorder, unspecified; Z87.891 Personal history of nicotine dependence; Z85.46 Personal history of malignant neoplasm of prostate; Z79.82 Long term (current) use of aspirin; Z79.899 Other long term (current) drug therapy
CPT/HCPCS: 36415; 80053; 80178; 80306; 80307; 81003; 82550; 84443; 85025; 93005; 94640; 96365; 96366; 96367; 96375; J2060; J2930; J3411; J3475; J7042; J7620

== ENCOUNTER 2018-01-13 14:22 | Emergency (ER) | payer MEDICARE, MEDICAID ==
[2018-01-13] MEDS ORDERED: Lorazepam 1 MG TAB ONE (15:44)
== END 2018-01-13 16:35 | disposition home or self-care (01) ==
LOC: ERS 14:22
DX: F10.239 Alcohol dependence with withdrawal, unspecified (principal); I25.2 Old myocardial infarction; I25.10 Atherosclerotic heart disease of native coronary artery without angina pectoris; I10 Essential (primary) hypertension; J44.9 Chronic obstructive pulmonary disease, unspecified; G20 Parkinson's disease; F31.9 Bipolar disorder, unspecified; Z79.82 Long term (current) use of aspirin; Z79.899 Other long term (current) drug therapy; Z79.4 Long term (current) use of insulin
CPT/HCPCS: 99284

== ENCOUNTER 2018-01-14 09:25 | Emergency (ER) | payer MEDICARE, MEDICAID | END 2018-01-14 10:59 | disposition home or self-care (01) | LOC: ERS 09:25 | DX: F10.129 Alcohol abuse with intoxication, unspecified (principal); J44.9 Chronic obstructive pulmonary disease, unspecified; G20 Parkinson's disease; F31.81 Bipolar II disorder; I10 Essential (primary) hypertension; I25.10 Atherosclerotic heart disease of native coronary artery without angina pectoris; I25.2 Old myocardial infarction; Z87.891 Personal history of nicotine dependence; Z79.899 Other long term (current) drug therapy; Z79.82 Long term (current) use of aspirin | CPT/HCPCS: 99284 ==

== ENCOUNTER 2018-01-18 21:13 | Emergency (ER) | payer MEDICARE, MEDICAID | END 2018-01-18 22:27 | disposition home or self-care (01) | LOC: ERS 21:13 | DX: F10.129 Alcohol abuse with intoxication, unspecified (principal); M54.9 Dorsalgia, unspecified; I25.2 Old myocardial infarction; I25.10 Atherosclerotic heart disease of native coronary artery without angina pectoris; I10 Essential (primary) hypertension; J44.9 Chronic obstructive pulmonary disease, unspecified; G20 Parkinson's disease; F31.81 Bipolar II disorder; Z87.891 Personal history of nicotine dependence; Z79.899 Other long term (current) drug therapy; Z79.82 Long term (current) use of aspirin; W18.30XA Fall on same level, unspecified, initial encounter | CPT/HCPCS: 99284 ==